=== PATIENT | female | born 1970 | race Caucasian/White ===

== ENCOUNTER 2016-09-26 13:10 | Inpatient (IN) | payer OTHER ==
--- NOTE | 2016-09-26 13:24 | PDOC ---
History of Present Illness - General Chief Complaint: Pain, Acute Stated Complaint: M.S./ KIDNEY PAIN (PCP SENT) Time Seen by Provider: 09/26/16 13:23 - History of Present Illness Initial Comments: 09/26/16 14:42 Patient is a [age]-year-old female with past medical history of MS, neurogenic bladder (self catheterizes) who presents to the emergency department today complaining of fevers, chills and worsening right flank pain. Patient was diagnosed with a urinary tract infection 6 days ago where Klebsiella was isolated. It was pansensitive and the patient was started on Cipro. she has taken 6 days worth of Cipro. Her pain has gotten increasingly worse even with antibiotics. She presents today for further evaluation and potential IV antibiotics as per Dr. Tammy Iglesias. Patient admits to fevers, chills, abdominal pain, pressure in her bladder, fatigue, and MS flare with numbness and tingling to her hands and feet. Past History - Travel Traveled outside of the country in the last 30 days: No Close contact w/someone who was outside of country & ill: No - Past Medical History Allergies/Adverse Reactions: Allergies Allergy/AdvReac Type Severity Reaction Status Date / Time No Known Allergies Allergy Verified 09/26/16 13:16 Home Medications: Ambulatory Orders Bupropion HCl [Wellbutrin Xl -] 300 mg PO DAILY #0 tab 07/28/13 Ropinirole HCl [Requip -] 1 mg PO HS #0 tablet 07/28/13 Sertraline HCl [Zoloft -] 100 mg PO DAILY #0 tablet 07/28/13 Zolpidem Tartrate [Ambien] 10 mg PO HS #0 tablet 07/28/13 Alprazolam [Xanax] 0.25 mg PO BID 09/26/16 Atorvastatin Ca [Lipitor] 40 mg PO HS 09/26/16 Baclofen 20 mg PO DAILY 09/26/16 Fingolimod HCl [Gilenya] 0.5 mg PO DAILY 09/26/16 Gabapentin [Neurontin -] 600 mg PO HS 09/26/16 Ibuprofen [Motrin -] 800 mg PO DAILY 09/26/16 Oxycodone HCl/Acetaminophen [Percocet 10-325 mg Tablet] 1 each PO Q4H 09/26/16 Zolpidem Tartrate [Ambien] 10 mg PO HS 09/26/16 GI Disorders: Yes (NEUROGENIC BLADDER. STRAIGHT CATHS.) Hypercholesterolemia: Yes Other medical history: MULTIPLE SCLEROSIS - Psycho/Social/Smoking Cessation Hx Anxiety: No Suicidal Ideation: No Smoking History: Current some day smoker Number of Cigarettes Smoked Daily: 2 Information on smoking cessation initiated: No 'Breaking Loose' booklet given: 03/20/13 Hx Alcohol Use: Yes (SOCIAL) Drug/Substance Use Hx: No Substance Use Type: None Hx Substance Use Treatment: No Review of Systems - Review of Systems Able to Perform ROS?: Yes Is the patient limited Slovenian proficient: No Constitutional: Yes: Chills, Fever, Malaise, Weakness Respiratory: No: Cough, Shortness of Breath Cardiac (ROS): No: Chest Pain, Lightheadedness, Chest Tightness ABD/GI: Yes: Nausea, Abdominal cramping. No: Constipated, Diarrhea, Vomiting : Yes: Burning, Dysuria, Frequency, Other (pressure over bladder, R back pain) Integumentary: No: Bruising, Erythema, Rash Neurological: No: Headache, Numbness, Weakness All Other Systems: Reviewed and Negative *Physical Exam - Vital Signs Last Vital Signs Temp Pulse Resp BP Pulse Ox 98.8 F 91 H 20 146/88 99 09/26/16 13:12 09/26/16 13:12 09/26/16 13:12 09/26/16 13:12 09/26/16 13:12 - Physical Exam General Appearance: Yes: Nourished, Appropriately Dressed, Mild Distress ( figiting in bed. breathing easily, AAOX3) Respiratory/Chest: positive: Lungs Clear, Normal Breath Sounds. negative: Respiratory Distress, Accessory Muscle Use, Rales, Rhonchi, Wheezing Cardiovascular: positive: Regular Rhythm, Regular Rate, S1, S2 (present). negative: Murmur Gastrointestinal/Abdominal: positive: Normal Bowel Sounds, Tender (TTP RLQ radiates to R flank/back, suprapubic tenderness) Musculoskeletal: positive: CVA Tenderness, CVA Tenderness (R). negative: CVA Tenderness (L) Integumentary: positive: Normal Color, Dry, Warm. negative: Rash Neurologic: positive: soapstoner II-XII NML intact, Fully Oriented, Alert, Normal Mood/ Affect, Normal Response, Motor Strength 5/5, Numbness (B/L hands and feet. decreased sensation) ED Treatment Course - LABORATORY CBC & Chemistry Diagram: 09/26/16 14:10 09/26/16 14:10 Medical Decision Making - Medical Decision Making 09/26/16 14:38 Patient is 46-year-old female with past medical history of MS, neurogenic bladder (self catheterizes) who presents to the emergency department today complaining of fevers, chills and worsening right flank pain after previous UTI diagnosis 6 days ago. Patient has severe tenderness of her right flank and positive CVA tenderness. Patient states that this is usual for her MS flares. Spoke to Dr. Flynn who is on-call for Dr. Tammy Iglesias. Recommends kidney and bladder ultrasound as well as standard septic workup. States that she might need to be admitted for IV antibiotics. We'll do septic workup at this time. 1. CBC, CMP, UA, UC, lactic acid blood cultures 2. Zofran, fluids, and morphine for symptom management. 3. kidney and bladder ultrasound to rule out hydronephrosis 4. reevaluate 09/26/16 15:00 Patient states her pain was not better with 2 IV morphine. Will give 4 of IV morphine now as well as IV Tylenol. Re-evaluate 09/26/16 15:49 CBC is within normal limits, white count of 6. Urine is clear with no evidence of nitrates or leukocyte esterase. This is most likely due to her Cipro use. BUN /creatinine and creatinine are slightly elevated Renal ultrasound: The right kidney measures 10 cm in sagittal length with minimal prominence of the renal pelvis visualized portion of the liver and gallbladder appear unremarkable Left kidney measures 9.7 cm in sagittal length with mild hydronephrosis left kidney appears otherwise unremarkable Impression: Mild left renal hydronephrosis and minimal fullness of the right renal pelvis Will order Spiral CT to r/o kidney stone. 09/26/16 17:31 CAT scans shows no evidence of kidney stones. Patient is most likely having intractable pain due to a possible pyelonephritis. Lab work is unremarkable given she's been on Cipro for [address] Metcalf who agrees to the patient in observation for intractable pain as well as possible IV antibiotics. Dr. Purcell will follow. *DC/Admit/Observation/Transfer Diagnosis at time of Disposition: Intractable pain, Multiple sclerosis UTI (urinary tract infection) Qualifiers: Urinary tract infection type: catheter-associated UTI Indwelling urinary catheter type: unspecified Encounter type: initial encounter Qualified Code(s): T83.511A - Infection and inflammatory reaction due to indwelling urethral catheter, initial encounter - Discharge Dispostion Condition at time of disposition: Guarded Admit: Yes
[2016-09-26] MEDS ORDERED: morphine CARPU-JECT 2 MG/1 ML DISP.SYRIN ONE ×2 (13:55→17:42)
[2016-09-26] MEDS ORDERED: morphine CARPU-JECT 2 MG/1 ML DISP.SYRIN IVPUSH ONE ×2 (14:01→17:28)
[2016-09-26] MEDS ORDERED: SODIUM CHLORIDE 1,000 ML IV STA (14:02)
[2016-09-26 14:12] LABS: URINE APPEARANCE CLEAR; URINE BILIRUBIN NEGATIVE (NEGATIVE); URINE BLOOD NEGATIVE (NEGATIVE); URINE COLOR YELLOW; URINE GLUCOSE (UA) NEGATIVE (NEGATIVE); URINE KETONE TRACE (NEGATIVE); URINE LEUK ESTERASE NEGATIVE (NEGATIVE); URINE NITRITE NEGATIVE (NEGATIVE); URINE PROTEIN NEGATIVE (NEGATIVE); URINE UROBILINOGEN NEGATIVE E.U./dl (0.2-1.0)
[2016-09-26] MEDS ORDERED: ACETAMINOPHEN 1000 MG/100 ML VIAL (NON FORMULARY) IVPB ONE (14:15)
[2016-09-26] MEDS ORDERED: ACETAMINOPHEN INJECTION 100 ML IVPB ONE (14:18)
[2016-09-26] MEDS ORDERED: ONDANSETRON 4 MG/2 ML VIAL IVPUSH ONE (14:22)
[2016-09-26] MEDS ORDERED: ONDANSETRON 4 MG/2 ML VIAL ONE (14:22)
[2016-09-26 14:34] LABS: BASOPHIL 0.2 % (0-2.0); EOSINOPHIL 0.7 % (0-4.5); MCHC 34.3 g/dl (32.0-36.0); MEAN CELL VOLUME 84.7 fl (80-96); MEAN PLT VOLUME 8.8 fl (7.5-11.1); NEUTROPHILS 74.1 % (42.8-82.8); PLATELET COUNT 255 K/MM3 (134-434); RDW 14.1 % (11.6-15.6); WHITE BLOOD COUNT 6.4 K/mm3 (4.0-10.0)
--- NOTE | 2016-09-26 14:35 | PDOC ---
Attending Attestation - Resident Resident Name: Charity Prado - ED Attending Attestation I have performed the following: I have examined & evaluated the patient, The case was reviewed & discussed with the resident, I agree w/resident's findings & plan - HPI HPI: 09/26/16 17:25 46y F hx of MS, neurgenic bladder and is supposed to self catherize, with recen diagnosis of UTI by dr. Tammy Mckeon 6 days ago with complaint of dysuria, states she is not consistent with self catherizing herself. pt also endorsed intermittent tingling of her hands/feet for the past several days w/o weakness, no vision changes. pt endorses some chills and nausea and intermittnte R flank pain, deine sany fevers, vomiting. pt was on cipro for past 6 days, and was told to come to the ED if symptoms were worsening. Pts exam shows mild RLQ tenderness, vitals normal. labs reviewed Cr at 1.2 UA clean, however pt is on cipro, will send u culture CT shows no acute pahtology tingling of extremities = ?MS flare in setting of UTI? consider admission for further management and iv abx - Physicial Exam PE: 09/27/16 09:40 see above - Medical Decision Making 09/27/16 09:40 see above
[2016-09-26] MEDS ORDERED: morphine CARPU-JECT 4 MG/1 ML DISP.SYRIN IVPUSH ONE (14:37)
[2016-09-26 14:44] LABS: ALK PHOS 73 U/L (45-117); ANION GAP 7 (8-16); BILIRUBIN,TOTAL 0.4 mg/dL (0.2-1.0); CALCIUM 9.4 mg/dL (8.5-10.1); CO2 27 mmol/L (21-32); CREATININE 1.2 mg/dL (0.55-1.02); GLUCOSE,RANDOM 93 mg/dL (74-106); SGOT/AST 23 U/L (15-37); SGPT/ALT 30 U/L (12-78); TOT PROT 6.8 g/dl (6.4-8.2)
[2016-09-26] MEDS ORDERED: morphine CARPU-JECT 4 MG/1 ML DISP.SYRIN ONE (14:44)
[2016-09-26 15:35] LABS: INR 0.88 (0.82-1.09); PROTHROMBIN TIME (PATIENT) 9.7 SEC (9.98-11.88)
[2016-09-26 15:38] LABS: ACTIVATED PTT 30.6 SECONDS (26.9-34.4)
[2016-09-26] MEDS ORDERED: morphine CARPU-JECT 2 MG/1 ML DISP.SYRIN IVPB PRN (20:54)
[2016-09-26] MEDS ORDERED: LEVOFLOXACIN 500 MG IVPB 100 ML IVPB ONE (21:00)
[2016-09-26] MEDS: morphine CARPU-JECT 2 MG/1 ML DISP.SYRIN IVPUSH PRN (21:18)
[2016-09-26 23:49] VITALS: BMI 25.3
[2016-09-26] MEDS ORDERED: IBUPROFEN 400 MG TABLET (FP) PO PRN (23:59)
[2016-09-27] MEDS: oxyCODONE HCL 5 MG TABLET PO PRN ×4 (00:49→18:42)
[2016-09-27] MEDS: ACETAMINOPHEN 325 MG TABLET (FP) PO PRN ×4 (00:50→18:43)
[2016-09-27] MEDS: GABAPENTIN 300 MG CAPSULE (FP) PO SCH ×2 (00:51→22:24)
[2016-09-27] MEDS: BACLOFEN 10 MG TABLET (FP) PO SCH ×2 (00:52→22:24)
[2016-09-27] MEDS: ATORVASTATIN CA 40 MG TABLET (FP) PO SCH ×2 (00:52→22:24)
[2016-09-27] MEDS: ALPRAZolam 0.25 MG TABLET PO SCH ×3 (01:11→22:24)
[2016-09-27] MEDS: rOPINIRole HCL 1 MG TABLET (FP) PO SCH ×2 (01:32→22:26)
[2016-09-27] MEDS: PHENAZOPYRIDINE HCL 100 MG TABLET (FP) PO SCH ×3 (01:33→22:26)
[2016-09-27] MEDS: ZOLPIDEM TARTRATE 5 MG TABLET PO PRN ×2 (01:38→22:36)
[2016-09-27 07:24] LABS: BASOPHIL 0.5 % (0-2.0); EOSINOPHIL 1.6 % (0-4.5); MCH 29.2 pg (25.7-33.7); MCHC 34.3 g/dl (32.0-36.0); MEAN CELL VOLUME 85.2 fl (80-96); MEAN PLT VOLUME 8.7 fl (7.5-11.1); NEUTROPHILS 68.9 % (42.8-82.8); PLATELET COUNT 205 K/MM3 (134-434); WHITE BLOOD COUNT 5.7 K/mm3 (4.0-10.0)
[2016-09-27 07:55] LABS: ALBUMIN 3.2 g/dl (3.4-5.0); ANION GAP 7 (8-16); BILIRUBIN,TOTAL 0.3 mg/dL (0.2-1.0); CALCIUM 8.9 mg/dL (8.5-10.1); CO2 28 mmol/L (21-32); CREATININE 0.8 mg/dL (0.55-1.02); GLUCOSE,RANDOM 82 mg/dL (74-106); SGOT/AST 18 U/L (15-37); SGPT/ALT 23 U/L (12-78); TOT PROT 5.7 g/dl (6.4-8.2)
[2016-09-27 07:57] LABS: ALK PHOS 56 U/L (45-117)
[2016-09-27] MEDS ORDERED: PT OWN MED DRAWER 7, Y5N ONE ×2 (09:28→18:53)
[2016-09-27] MEDS: SERTRALINE HCL 50 MG TABLET (FP) PO SCH (09:37)
[2016-09-27 09:51] LABS: ERYTHROCYTE SEDIMENTATION RATE 16 mm/hr (0-20)
[2016-09-27] MEDS ORDERED: LEVOFLOXACIN 500 MG IVPB 100 ML IVPB SCH (10:00)
[2016-09-27] MEDS: morphine CARPU-JECT 2 MG/1 ML DISP.SYRIN IVPUSH PRN ×2 (10:36→20:46)
--- NOTE | 2016-09-27 11:37 | HP ---
Admitting History and Physical - Primary Care Physician PCP: Tammy Contreras - Admission Chief Complaint: abdominal pain, UTI, flank pain History of Present Illness: ER history - History of Present Illness Initial Comments: 09/26/16 14:42 Patient is a [age]-year-old female with past medical history of MS, neurogenic bladder (self catheterizes) who presents to the emergency department today complaining of fevers, chills and worsening right flank pain. Patient was diagnosed with a urinary tract infection 6 days ago where Klebsiella was isolated. It was pansensitive and the patient was started on Cipro. she has taken 6 days worth of Cipro. Her pain has gotten increasingly worse even with antibiotics. She presents today for further evaluation and potential IV antibiotics as per Dr. Tmamy Iglesias. Patient admits to fevers, chills, abdominal pain, pressure in her bladder, fatigue, and MS flare with numbness and tingling to her hands and feet patient examined by me on the floors. spoke with her driver/PMDDr. Tammy Purcellpatient failed outpatient oral antibiotic therapy for UTI. She is here for further evaluation and intravenous antibiotics. Patient complains of pelvic pain and also back pain. She self catheterizes but not as often.she has overflow incontinence. Has noted blood clots this morning. History Source: Patient Limitations to Obtaining History: No Limitations - Past Medical History SMALL BUSINESS DIRECTOR: Yes: Multiple Sclerosis, Other (MS. NEUROGENIC BLADDER--SELF CATHERIZES) - Smoking History Smoking history: Current some day smoker Aproximately how many cigarettes per day: 2 - Alcohol/Substance Use Hx Alcohol Use: Yes (SOCIAL) Home Medications - Allergies Allergies/Adverse Reactions: Allergies Allergy/AdvReac Type Severity Reaction Status Date / Time No Known Allergies Allergy Verified 09/26/16 13:16 - Home Medications Home Medications: Ambulatory Orders Bupropion HCl [Wellbutrin Xl -] 300 mg PO DAILY #0 tab 07/28/13 Ropinirole HCl [Requip -] 1 mg PO HS #0 tablet 07/28/13 Sertraline HCl [Zoloft -] 100 mg PO DAILY #0 tablet 07/28/13 Zolpidem Tartrate [Ambien] 10 mg PO HS #0 tablet 07/28/13 Alprazolam [Xanax] 0.25 mg PO BID 09/26/16 Atorvastatin Ca [Lipitor] 40 mg PO HS 09/26/16 Baclofen 20 mg PO DAILY 09/26/16 Fingolimod HCl [Gilenya] 0.5 mg PO DAILY 09/26/16 Gabapentin [Neurontin -] 600 mg PO HS 09/26/16 Ibuprofen [Motrin -] 800 mg PO DAILY 09/26/16 Oxycodone HCl/Acetaminophen [Percocet 10-325 mg Tablet] 1 each PO Q4H 09/26/16 Zolpidem Tartrate [Ambien] 10 mg PO HS 09/26/16 Review of Systems - Review of Systems Constitutional: reports: Chills, Fever. denies: Lethargy, Loss of Appetite, Malaise, Night Sweats, Weakness Genitourinary: reports: Burning, Dysuria, Flank Pain, Hematuria, Pain. denies: Frequency Physical Examination Vital Signs: Vital Signs Temperature 98.0 F 09/27/16 08:00 Pulse Rate 75 09/27/16 08:00 Respiratory Rate 20 09/27/16 08:00 Blood Pressure 112/64 09/27/16 08:00 O2 Sat by Pulse Oximetry (%) 100 09/26/16 20:15 Constitutional: Yes: No Distress, Calm Cardiovascular: Yes: Regular Rate and Rhythm Respiratory: Yes: CTA Bilaterally Gastrointestinal: Yes: Normal Bowel Sounds, Soft, Tenderness (suprapubic tenderness). No: Distention Renal/: Yes: CVA Tenderness - Left, CVA Tenderness - Right Edema: No Neurological: Yes: Alert, Oriented Psychiatric: Yes: Alert, Oriented Labs: CBC, BMP 09/27/16 06:20 09/27/16 06:20 Imaging - Results Cat Scan: Report Reviewed Ultrasound: Report Reviewed Problem List - Problems (1) Multiple sclerosis Code(s): G35 - MULTIPLE SCLEROSIS (2) UTI (urinary tract infection) Code(s): N39.0 - URINARY TRACT INFECTION, SITE NOT SPECIFIED Qualifiers: Urinary tract infection type: catheter-associated UTI Indwelling urinary catheter type: unspecified Encounter type: initial encounter Qualified Code(s): T83.511A - Infection and inflammatory reaction due to indwelling urethral catheter, initial encounter; N39.0 - Urinary tract infection , site not specified (3) Hydronephrosis Code(s): N13.30 - UNSPECIFIED HYDRONEPHROSIS Qualifiers: Hydronephrosis type: other Qualified Code(s): N13.39 - Other hydronephrosis Assessment/Plan plan As patient was already on ciprofloxacin and failed outpatient therapy, I will discontinue IV Levaquin and start her on ceftriaxone Infectious disease consult Urine cultures are pending Pain control, increase dose of oxycodone Advised the patient to catheterize herself more often at least every 6 hours IV fluids Renal ultrasound and CAT scan of the abdomen and pelvis noted and discussed with the patient DVT prophylaxisSCDs Time spent40 minutes
--- NOTE | 2016-09-27 12:16 | CONSULT ---
Consult Consult Specialty:: Nephrology ( [facility]/ [facility]) Reason for Consultation:: Patient admitted with severe abd pain, flank pain, fever and positive urine culture with K. pneumoniae - History of Present Illness Chief Complaint: The patient is a 46 y/o WF, with h/o Multiple sclerosis, with voiding difficulties, and some degree of dysphagia. The patient had veen advised self catheterization for the past several years, but, her compliance with this had not been the best. She also has h/o Essential tremor, and on Inderal. The patient has been having fever, and lower abdominal pains for the past week, and a urine C/S grew K. pneumoniae. The pain is getting worse. pain located in the suprapubic areas and the flanks. This morning when she was catheterizing, she saw clots in the urine. The renal sonogram shows mild hydronephrosis, without any focal lesions. - History Source History Provided By: Patient, Medical Record Limitations to Obtaining History: No Limitations - Past Medical History LOAF COUNTER: Yes: Other (Multiple sclerosis, NEUROGENIC BLADDER--SELF CATHERIZES) Cardio/Vascular: No: HTN Pulmonary: No: Asthma Renal/: Yes: Neurogenic Bladder Psych: Yes: Anxiety - Alcohol/Substance Use Hx Alcohol Use: Yes (SOCIAL) - Smoking History Smoking history: Current some day smoker Aproximately how many cigarettes per day: 2 Home Medications - Allergies Allergies/Adverse Reactions: Allergies Allergy/AdvReac Type Severity Reaction Status Date / Time No Known Allergies Allergy Verified 09/26/16 13:16 - Home Medications Home Medications: Ambulatory Orders Bupropion HCl [Wellbutrin Xl -] 300 mg PO DAILY #0 tab 07/28/13 Ropinirole HCl [Requip -] 1 mg PO HS #0 tablet 07/28/13 Sertraline HCl [Zoloft -] 100 mg PO DAILY #0 tablet 07/28/13 Zolpidem Tartrate [Ambien] 10 mg PO HS #0 tablet 07/28/13 Alprazolam [Xanax] 0.25 mg PO BID 09/26/16 Atorvastatin Ca [Lipitor] 40 mg PO HS 09/26/16 Baclofen 20 mg PO DAILY 09/26/16 Fingolimod HCl [Gilenya] 0.5 mg PO DAILY 09/26/16 Gabapentin [Neurontin -] 600 mg PO HS 09/26/16 Ibuprofen [Motrin -] 800 mg PO DAILY 09/26/16 Oxycodone HCl/Acetaminophen [Percocet 10-325 mg Tablet] 1 each PO Q4H 09/26/16 Zolpidem Tartrate [Ambien] 10 mg PO HS 09/26/16 Review of Systems - Review of Systems Constitutional: reports: Fever, Loss of Appetite HENT: reports: Difficult Swallowing Cardiovascular: denies: Chest Pain, Shortness of Breath Gastrointestinal: reports: Abdominal Pain, Dysphagia. denies: Constipation, Diarrhea Genitourinary: reports: Burning, Dysuria, Flank Pain, Hematuria Musculoskeletal: reports: Back Pain, Extremity Pain, Muscle Weakness Neurological: reports: Headache Physical Exam Vital Signs: Vital Signs Temperature 98.0 F 09/27/16 08:00 Pulse Rate 75 09/27/16 08:00 Respiratory Rate 20 09/27/16 08:00 Blood Pressure 112/64 09/27/16 08:00 O2 Sat by Pulse Oximetry (%) 100 09/26/16 20:15 Constitutional: Yes: Anxious Eyes: Yes: Conjunctiva Clear HENT: Yes: Atraumatic Neck: Yes: Trachea Midline Cardiovascular: Yes: Regular Rate and Rhythm, S1, S2 Respiratory: Yes: CTA Bilaterally Gastrointestinal: Yes: Normal Bowel Sounds, Tenderness Musculoskeletal: Yes: Joint Stiffness, Muscle Pain, Muscle Weakness Extremities: No: Calf Tenderness Neurological: Yes: Alert, Oriented, Tingling, Weakness (Patient has Multiple Sclerosis.) Psychiatric: Yes: Alert, Oriented Labs: CBC, BMP 09/27/16 06:20 09/27/16 06:20 Problem List - Problems (1) Intractable pain Code(s): R52 - PAIN, UNSPECIFIED (2) Multiple sclerosis Code(s): G35 - MULTIPLE SCLEROSIS (3) UTI (urinary tract infection) Code(s): N39.0 - URINARY TRACT INFECTION, SITE NOT SPECIFIED Qualifiers: Urinary tract infection type: catheter-associated UTI Indwelling urinary catheter type: unspecified Encounter type: initial encounter Qualified Code(s): T83.511A - Infection and inflammatory reaction due to indwelling urethral catheter, initial encounter; N39.0 - Urinary tract infection , site not specified (4) Essential tremor Code(s): G25.0 - ESSENTIAL TREMOR Assessment/Plan The patient is a 46 y/o female with h/o MS, Neurogenic bladder, Admitted with Acute UTI, with Klebsiella pneumoniae, vázquez sensitive. Was on 6 days of Cipro, with the symptoms worsening. Renal sonogram shows mild Hydronephrosis, possibly related to Neurogenic bladder. Clot per urethrum, ? Traumatic. PLAN: Will switch to Ceftriaxone. IV fluids. ID evaluation. [employer]. Thank you. Tammy Contreras MD
[2016-09-27] MEDS ORDERED: CEFTRIAXONE 50 ML IVPB SCH (12:30)
[2016-09-27] MEDS: D5-1/2NS+40 MEQ KCL - 1,000 ML IV SCH (13:00)
[2016-09-27] MEDS ORDERED: CEFTRIAXONE 50 ML IVPB ONE (15:39)
--- NOTE | 2016-09-27 15:43 | PN ---
Progress Note (short form) - Note Progress Note: ID Consult dictated UTI/Possible sepsis secondary to UTI Pyelonephritis Exacerbation MS Blood c/s, repeat urine c/s pending Empiric ceftriaxone 2gm IVPB q24h
[2016-09-27] MEDS: [UNRECOGNIZED DRUG - REMARK] PO SCH (18:42)
[2016-09-28] MEDS: oxyCODONE HCL 5 MG TABLET PO PRN ×3 (02:12→21:38)
[2016-09-28] MEDS: ACETAMINOPHEN 325 MG TABLET (FP) PO PRN ×3 (02:13→21:38)
[2016-09-28] MEDS: morphine CARPU-JECT 2 MG/1 ML DISP.SYRIN IVPUSH PRN ×2 (07:15→16:44)
[2016-09-28] MEDS ORDERED: PT OWN MED DRAWER 7, Y5N ONE ×3 (09:47→21:33)
[2016-09-28] MEDS: [UNRECOGNIZED DRUG - REMARK] PO SCH (09:52)
[2016-09-28] MEDS: PHENAZOPYRIDINE HCL 100 MG TABLET (FP) PO SCH ×2 (09:52→21:41)
[2016-09-28] MEDS: SERTRALINE HCL 50 MG TABLET (FP) PO SCH (09:53)
[2016-09-28] MEDS: CEFTRIAXONE 100 ML IVPB SCH (09:53)
[2016-09-28] MEDS: ALPRAZolam 0.25 MG TABLET PO SCH ×2 (09:53→21:40)
[2016-09-28] MEDS ORDERED: ENOXAPARIN NA (PORCINE) 40 MG/0.4 ML DISP.SYRIN SQ SCH (10:00)
--- NOTE | 2016-09-28 11:32 | PN ---
Progress Note (short form) - Note Progress Note: pt seen/ examined/ chart reviewed pt feels little better pain + slight improvement remains afebrile Vital Signs Temp 99 F 09/28/16 08:00 Pulse 77 09/28/16 08:00 Resp 18 09/28/16 08:00 BP 112/70 09/28/16 08:00 Pulse Ox 100 09/27/16 21:00 Intake & Output 09/27/16 09/27/16 09/28/16 11:59 23:59 11:59 Intake Total 300 2025 550 Output Total 500 Balance 300 1525 550 Intake: IV 750 D5-1/2Ns+40 Meq KCl - 1, 750 000 ml @ 75 mls/hr IV ASDIR ANU Rx#:[id number] IVPB 100 100 Oral 200 1175 550 Output: Urine 500 Straight Cath 500 Other: Voiding Method Self-Catheterization Self-Catheterization Toilet # Unmeasured Voids Straight Cath 1 Void 1 1 1 Bowel Movement No Yes # Bowel Movements 1 Active Medications Acetaminophen (Tylenol -) 325 mg PO Q4H PRN PRN Reason: PAIN Stop: 09/30/16 00:08 Last Admin: 09/28/16 11:18 Dose: 325 mg Alprazolam (Xanax -) 0.25 mg PO BID [facility] Last Admin: 09/28/16 09:53 Dose: 0.25 mg Atorvastatin Calcium (Lipitor -) 40 mg PO HS [facility] Last Admin: 09/27/16 22:24 Dose: 40 mg Baclofen (Lioresal -) 20 mg PO HS [facility] Last Admin: 09/27/16 22:24 Dose: 20 mg Bupropion HCl (Wellbutrin Xl -) 300 mg PO DAILY [facility] Last Admin: 09/28/16 09:53 Dose: 300 mg Gabapentin (Neurontin -) 600 mg PO [facility] Last Admin: 09/27/16 22:24 Dose: 600 mg Dextrose/Sodium Chloride (D5-1/2ns+40 Meq Kcl -) 1,000 mls @ 75 mls/hr IV ASDIR ANU Last Admin: 09/27/16 13:00 Dose: 75 mls/hr Ceftriaxone Sodium (Rocephin 2gm Ivpb (Pre-Docked)) 100 mls @ 200 mls/hr IVPB DAILY [facility] Last Admin: 09/28/16 09:53 Dose: 200 mls/hr Morphine Sulfate (Morphine Injection -) 2 mg IVPUSH Q6H PRN PRN Reason: PAIN Last Admin: 09/28/16 07:15 Dose: 2 mg Non-Form(Pt's Own (Med-Gilenya 0.5mg)) 1 each PO DAILY [facility] Last Admin: 09/28/16 09:52 Dose: 1 each Oxycodone HCl (Roxicodone -) 7.5 mg PO Q4H PRN PRN Reason: PAIN Last Admin: 09/28/16 11:16 Dose: 7.5 mg Phenazopyridine HCl (Pyridium -) 100 mg PO BID [facility] Last Admin: 09/28/16 09:52 Dose: 100 mg Ropinirole HCl (Requip -) 1 mg PO HS [facility] Last Admin: 09/27/16 22:26 Dose: 1 mg Sertraline HCl (Zoloft -) 100 mg PO DAILY [facility] Last Admin: 09/28/16 09:53 Dose: 100 mg Zolpidem Tartrate (Ambien -) 10 mg PO HS PRN Last Admin: 09/27/16 22:36 Dose: 10 mg CBC, BMP 09/27/16 06:20 09/27/16 06:20 Microbiology 09/26/16 14:10 Blood Culture - Preliminary Blood - Peripheral Venous NO GROWTH OBTAINED AFTER 24 HOURS, INCUBATION TO CONTINUE FOR 4 DAYS. 09/26/16 14:10 Blood Culture - Preliminary Blood - Peripheral Venous NO GROWTH OBTAINED AFTER 24 HOURS, INCUBATION TO CONTINUE FOR 4 DAYS. u/c - pending Physical Examination Constitutional: Yes: No Distress, Calm Cardiovascular: Yes: Regular Rate and Rhythm Respiratory: Yes: CTA Bilaterally Gastrointestinal: Yes: soft Renal/: Yes: decreased left cva tenderness Edema: No Neurological: Yes: Alert, Oriented Psychiatric: Yes: Alert, Oriented Imaging - Results Cat Scan: Report Reviewed Ultrasound: Report Reviewed Problem List - Problems (1) Multiple sclerosis Code(s): G35 - MULTIPLE SCLEROSIS (2) UTI (urinary tract infection) Code(s): N39.0 - URINARY TRACT INFECTION, SITE NOT SPECIFIED Qualifiers: Urinary tract infection type: catheter-associated UTI Indwelling urinary catheter type: unspecified Encounter type: initial encounter Qualified Code(s): T83.511A - Infection and inflammatory reaction due to indwelling urethral catheter, initial encounter; N39.0 - Urinary tract infection , site not specified (3) Hydronephrosis Code(s): N13.30 - UNSPECIFIED HYDRONEPHROSIS Qualifiers: Hydronephrosis type: other Qualified Code(s): N13.39 - Other hydronephrosis Assessment/Plan slight improvement continue abx daily oob - chair meds reviewed discussed with also will follow
[2016-09-28] MEDS: LACTOBACILLUS ACIDOPHILUS 1 EACH TAB (FP) PO SCH (12:05)
--- NOTE | 2016-09-28 12:05 | PN ---
Progress Note, Physician History of Present Illness: Awake, alert No acute distress C/O R flank pain, supapubic pressure, dysuria No fever/ chills Afebrile - Current Medication List Current Medications: Active Medications Acetaminophen (Tylenol -) 325 mg PO Q4H PRN PRN Reason: PAIN Stop: 09/30/16 00:08 Last Admin: 09/28/16 11:18 Dose: 325 mg Alprazolam (Xanax -) 0.25 mg PO BID [facility] Last Admin: 09/28/16 09:53 Dose: 0.25 mg Atorvastatin Calcium (Lipitor -) 40 mg PO HS [facility] Last Admin: 09/27/16 22:24 Dose: 40 mg Baclofen (Lioresal -) 20 mg PO HS [facility] Last Admin: 09/27/16 22:24 Dose: 20 mg Bupropion HCl (Wellbutrin Xl -) 300 mg PO DAILY [facility] Last Admin: 09/28/16 09:53 Dose: 300 mg Enoxaparin Sodium (Lovenox -) 40 mg SQ DAILY [facility] Gabapentin (Neurontin -) 600 mg PO HS [facility] Last Admin: 09/27/16 22:24 Dose: 600 mg Dextrose/Sodium Chloride (D5-1/2ns+40 Meq Kcl -) 1,000 mls @ 75 mls/hr IV ASDIR [facility] Last Admin: 09/27/16 13:00 Dose: 75 mls/hr Ceftriaxone Sodium (Rocephin 2gm Ivpb (Pre-Docked)) 100 mls @ 200 mls/hr IVPB DAILY [facility] Last Admin: 09/28/16 09:53 Dose: 200 mls/hr Lactobacillus Acidophilus (Bacid -) 1 tab PO DAILY [facility] Morphine Sulfate (Morphine Injection -) 2 mg IVPUSH Q6H PRN PRN Reason: PAIN Last Admin: 09/28/16 07:15 Dose: 2 mg Non-Form(Pt's Own (Med-Gilenya 0.5mg)) 1 each PO DAILY [facility] Last Admin: 09/28/16 09:52 Dose: 1 each Oxycodone HCl (Roxicodone -) 7.5 mg PO Q4H PRN PRN Reason: PAIN Last Admin: 09/28/16 11:16 Dose: 7.5 mg Phenazopyridine HCl (Pyridium -) 100 mg PO BID [facility] Last Admin: 09/28/16 09:52 Dose: 100 mg Ropinirole HCl (Requip -) 1 mg PO HS [facility] Last Admin: 09/27/16 22:26 Dose: 1 mg Sertraline HCl (Zoloft -) 100 mg PO DAILY [facility] Last Admin: 09/28/16 09:53 Dose: 100 mg Zolpidem Tartrate (Ambien -) 10 mg PO HS PRN Last Admin: 09/27/16 22:36 Dose: 10 mg - Objective Vital Signs: Vital Signs Temperature 99 F 09/28/16 08:00 Pulse Rate 77 09/28/16 08:00 Respiratory Rate 18 09/28/16 08:00 Blood Pressure 112/70 09/28/16 08:00 O2 Sat by Pulse Oximetry (%) 100 09/27/16 21:00 Constitutional: Yes: No Distress Eyes: Yes: Conjunctiva Clear Cardiovascular: Yes: Regular Rate and Rhythm, S1, S2 Respiratory: Yes: CTA Bilaterally Gastrointestinal: Yes: Normal Bowel Sounds, Soft, Tenderness, Other (+ suprapubic tenderness) Genitourinary: Yes: CVA Tenderness - Right Edema: No Labs: INR, PTT INR 0.88 (0.82-1.09) 09/26/16 14:10 Assessment/Plan Pyelonephritis Recurrent UTI Neurogenic bladder MS Await c/s Continue ceftriaxone 2gm IVPB q24h
[2016-09-28] MEDS: ENOXAPARIN NA (PORCINE) 40 MG/0.4 ML DISP.SYRIN SQ SCH (13:00)
--- NOTE | 2016-09-28 15:39 | PN ---
Progress Note, Physician Chief Complaint: The patient seen in bed. Afebrile. Still complaints of suprapubic pain and tenderness. and flank pain. She said that after catheterization, she keeps seeing blood. Will get U/A ID f/u appreciated. - Current Medication List Current Medications: Active Medications Acetaminophen (Tylenol -) 325 mg PO Q4H PRN PRN Reason: PAIN Stop: 09/30/16 00:08 Last Admin: 09/28/16 11:18 Dose: 325 mg Alprazolam (Xanax -) 0.25 mg PO BID [facility] Last Admin: 09/28/16 09:53 Dose: 0.25 mg Atorvastatin Calcium (Lipitor -) 40 mg PO HS [facility] Last Admin: 09/27/16 22:24 Dose: 40 mg Baclofen (Lioresal -) 20 mg PO HS [facility] Last Admin: 09/27/16 22:24 Dose: 20 mg Bupropion HCl (Wellbutrin Xl -) 300 mg PO DAILY [facility] Last Admin: 09/28/16 09:53 Dose: 300 mg Enoxaparin Sodium (Lovenox -) 40 mg SQ DAILY [facility] Gabapentin (Neurontin -) 600 mg PO HS [facility] Last Admin: 09/27/16 22:24 Dose: 600 mg Dextrose/Sodium Chloride (D5-1/2ns+40 Meq Kcl -) 1,000 mls @ 75 mls/hr IV ASDIR [facility] Last Admin: 09/27/16 13:00 Dose: 75 mls/hr Ceftriaxone Sodium (Rocephin 2gm Ivpb (Pre-Docked)) 100 mls @ 200 mls/hr IVPB DAILY [facility] Last Admin: 09/28/16 09:53 Dose: 200 mls/hr Lactobacillus Acidophilus (Bacid -) 1 tab PO DAILY [facility] Last Admin: 09/28/16 12:05 Dose: 1 tab Morphine Sulfate (Morphine Injection -) 2 mg IVPUSH Q6H PRN PRN Reason: PAIN Last Admin: 09/28/16 07:15 Dose: 2 mg Non-Form(Pt's Own (Med-Gilenya 0.5mg)) 1 each PO DAILY [facility] Last Admin: 09/28/16 09:52 Dose: 1 each Oxycodone HCl (Roxicodone -) 7.5 mg PO Q4H PRN PRN Reason: PAIN Last Admin: 09/28/16 11:16 Dose: 7.5 mg Phenazopyridine HCl (Pyridium -) 100 mg PO BID [facility] Last Admin: 09/28/16 09:52 Dose: 100 mg Ropinirole HCl (Requip -) 1 mg PO HS [facility] Last Admin: 09/27/16 22:26 Dose: 1 mg Sertraline HCl (Zoloft -) 100 mg PO DAILY [facility] Last Admin: 09/28/16 09:53 Dose: 100 mg Zolpidem Tartrate (Ambien -) 10 mg PO HS PRN Last Admin: 09/27/16 22:36 Dose: 10 mg - Objective Vital Signs: Vital Signs Temperature 98.0 F 09/28/16 14:15 Pulse Rate 79 09/28/16 14:15 Respiratory Rate 18 09/28/16 14:15 Blood Pressure 98/67 09/28/16 14:15 O2 Sat by Pulse Oximetry (%) 100 09/27/16 21:00 Constitutional: Yes: Mild Distress Eyes: Yes: Conjunctiva Clear HENT: Yes: Atraumatic Neck: Yes: Supple Cardiovascular: Yes: Regular Rate and Rhythm, S1, S2 Respiratory: Yes: Regular, CTA Bilaterally, Diminished Gastrointestinal: Yes: Normal Bowel Sounds, Soft Genitourinary: Yes: CVA Tenderness - Left, CVA Tenderness - Right, Hematuria ( Reported b y the patient). No: Bladder Distention Edema: No Labs: INR, PTT INR 0.88 (0.82-1.09) 09/26/16 14:10 Problem List - Problems (1) Intractable pain Code(s): R52 - PAIN, UNSPECIFIED (2) Multiple sclerosis Code(s): G35 - MULTIPLE SCLEROSIS (3) UTI (urinary tract infection) Code(s): N39.0 - URINARY TRACT INFECTION, SITE NOT SPECIFIED Qualifiers: Urinary tract infection type: catheter-associated UTI Indwelling urinary catheter type: unspecified Encounter type: initial encounter Qualified Code(s): T83.511A - Infection and inflammatory reaction due to indwelling urethral catheter, initial encounter; N39.0 - Urinary tract infection , site not specified (4) Essential tremor Code(s): G25.0 - ESSENTIAL TREMOR Assessment/Plan The patient is a 46 y/o female with h/o MS, Neurogenic bladder, Admitted with Acute UTI, with Klebsiella pneumoniae, vázquez sensitive. Was on 6 days of Cipro, with the symptoms worsening. Renal sonogram shows mild Hydronephrosis, possibly related to Neurogenic bladder. Hematuria. ? Traumatic PLAN: Continue the IV fluids and Ceftriaxone. Urinalysis. Analgesics. Tammy Contreras MD
[2016-09-28] MEDS: D5-1/2NS+40 MEQ KCL - 1,000 ML IV SCH (15:54)
[2016-09-28 18:34] LABS: URINE APPEARANCE CLEAR; URINE BILIRUBIN NEGATIVE (NEGATIVE); URINE BLOOD 3+ (NEGATIVE); URINE COLOR AMBER; URINE GLUCOSE (UA) NEGATIVE (NEGATIVE); URINE KETONE TRACE (NEGATIVE); URINE LEUK ESTERASE NEGATIVE (NEGATIVE); URINE NITRITE POSITIVE (NEGATIVE); URINE PROTEIN NEGATIVE (NEGATIVE); URINE UROBILINOGEN 4.0 E.U/dl mg/dL (0.2-1.0)
[2016-09-28 18:40] LABS: URINE RBC 157 /hpf (0-3); URINE WBC 1 /hpf (3-5)
[2016-09-28] MEDS: GABAPENTIN 300 MG CAPSULE (FP) PO SCH (21:38)
[2016-09-28] MEDS: BACLOFEN 10 MG TABLET (FP) PO SCH (21:40)
[2016-09-28] MEDS: ATORVASTATIN CA 40 MG TABLET (FP) PO SCH (21:40)
[2016-09-28] MEDS: rOPINIRole HCL 1 MG TABLET (FP) PO SCH (21:41)
[2016-09-28] MEDS: ZOLPIDEM TARTRATE 5 MG TABLET PO PRN (21:44)
[2016-09-29] MEDS: morphine CARPU-JECT 2 MG/1 ML DISP.SYRIN IVPUSH PRN ×3 (01:38→18:34)
[2016-09-29] MEDS: oxyCODONE HCL 5 MG TABLET PO PRN ×3 (07:03→21:21)
[2016-09-29] MEDS: ACETAMINOPHEN 325 MG TABLET (FP) PO PRN ×3 (07:04→21:21)
--- NOTE | 2016-09-29 10:12 | PN ---
Progress Note (short form) - Note Progress Note: still with abdominal discomfort no fevers reports she does not self cath as she should- sometimes skips altogether and never 3 times aday- reports pain with self cath Vital Signs Period Temp Pulse Resp BP Sys/Marquez Pulse Ox Last 24 Hr 97.6 F-98.4 F 60-79 18-20 98-142/58-82 98 cor-rrr lungs clear abd soft, no distention ext no edema CBC, BMP 09/27/16 06:20 09/27/16 06:20 Microbiology 09/26/16 14:10 Blood - Peripheral Venous Blood Culture - Preliminary NO GROWTH OBTAINED AFTER 48 HOURS, INCUBATION TO CONTINUE FOR 3 DAYS. 09/26/16 14:10 Blood - Peripheral Venous Blood Culture - Preliminary NO GROWTH OBTAINED AFTER 48 HOURS, INCUBATION TO CONTINUE FOR 3 DAYS. 09/26/16 13:43 Urine - Urine - Catheterized Urine Culture - Preliminary Lactose Fermenting Neg Bacilli a/p UTI hematuria neurogenic bladder MS continue rocephin, was on cipro as outpt needs f/u with her urologist to address discomfort with self cath and hematuria if it persists after treatment for UTI
[2016-09-29] MEDS: LACTOBACILLUS ACIDOPHILUS 1 EACH TAB (FP) PO SCH (10:35)
[2016-09-29] MEDS: PHENAZOPYRIDINE HCL 100 MG TABLET (FP) PO SCH ×2 (10:35→21:16)
[2016-09-29] MEDS: [UNRECOGNIZED DRUG - REMARK] PO SCH (10:35)
[2016-09-29] MEDS: ALPRAZolam 0.25 MG TABLET PO SCH ×2 (10:36→21:15)
[2016-09-29] MEDS: CEFTRIAXONE 100 ML IVPB SCH (10:36)
[2016-09-29] MEDS: SERTRALINE HCL 50 MG TABLET (FP) PO SCH (10:36)
[2016-09-29] MEDS: ENOXAPARIN NA (PORCINE) 40 MG/0.4 ML DISP.SYRIN SQ SCH (10:36)
[2016-09-29] MEDS ORDERED: PT OWN MED DRAWER 7, Y5N ONE ×2 (10:51→20:57)
--- NOTE | 2016-09-29 10:57 | PN ---
Progress Note (short form) - Note Progress Note: pt continue to have abdominal discomfort no other issues u/c noted afebrile no distress Vital Signs Temp 97.6 F 09/29/16 07:52 Pulse 72 09/29/16 07:52 Resp 18 09/29/16 07:52 BP 119/78 09/29/16 07:52 Pulse Ox 98 09/28/16 21:00 Intake & Output 09/28/16 09/28/16 09/29/16 11:59 23:59 11:59 Intake Total 550 1750 1500 Balance 550 1750 1500 Intake: IV 600 900 D5-1/2Ns+40 Meq KCl - 1, 600 900 000 ml @ 75 mls/hr IV ASDIR [facility] Rx#:[id number] IVPB 100 Oral 550 1050 600 Other: Voiding Method Self-Catheterization Self-Catheterization Self-Catheterization # Unmeasured Voids Straight Cath 300 Void 1 1 Bowel Movement Yes No No # Bowel Movements 1 CBC, BMP 09/27/16 06:20 09/27/16 06:20 Microbiology 09/26/16 13:43 Urine Culture - Final Urine - Urine - Catheterized Escherichia Coli 09/26/16 14:10 Blood Culture - Preliminary Blood - Peripheral Venous NO GROWTH OBTAINED AFTER 48 HOURS, INCUBATION TO CONTINUE FOR 3 DAYS. 09/26/16 14:10 Blood Culture - Preliminary Blood - Peripheral Venous NO GROWTH OBTAINED AFTER 48 HOURS, INCUBATION TO CONTINUE FOR 3 DAYS. Physical Examination Constitutional: Yes: No Distress, Calm Cardiovascular: Yes: Regular Rate and Rhythm Respiratory: Yes: CTA Bilaterally Gastrointestinal: Yes: soft/ non tender Renal/: Yes: decreased left cva tenderness Edema: No Neurological: Yes: Alert, Oriented Psychiatric: Yes: Alert, Oriented Imaging - Results Cat Scan: Report Reviewed Ultrasound: Report Reviewed Problem List - Problems (1) Multiple sclerosis Code(s): G35 - MULTIPLE SCLEROSIS (2) UTI (urinary tract infection) Code(s): N39.0 - URINARY TRACT INFECTION, SITE NOT SPECIFIED Qualifiers: Urinary tract infection type: catheter-associated UTI Indwelling urinary catheter type: unspecified Encounter type: initial encounter Qualified Code(s): T83.511A - Infection and inflammatory reaction due to indwelling urethral catheter, initial encounter; N39.0 - Urinary tract infection , site not specified (3) Hydronephrosis Code(s): N13.30 - UNSPECIFIED HYDRONEPHROSIS Qualifiers: Hydronephrosis type: other Qualified Code(s): N13.39 - Other hydronephrosis Assessment/Plan continue abx will get u/s abdomen/ kidneys done daily oob - chair will follow
[2016-09-29] MEDS: D5-1/2NS+40 MEQ KCL - 1,000 ML IV SCH ×2 (11:11→12:00)
--- NOTE | 2016-09-29 11:45 | PN ---
Progress Note (short form) - Note Progress Note: Renal follow up for JULIANNE and UTI Pt seen and examined at the bedside continues to have pain in the lower abd and right LQ no fever, chills has some hematuria with she self catheterizes for voiding Vital Signs Temperature 97.6 F 09/29/16 07:52 Pulse Rate 72 09/29/16 07:52 Respiratory Rate 18 09/29/16 07:52 Blood Pressure 119/78 09/29/16 07:52 O2 Sat by Pulse Oximetry (%) 98 09/28/16 21:00 Intake & Output 09/26/16 09/27/16 09/28/16 09/29/16 23:59 23:59 23:59 23:59 Intake Total 300 2325 2300 1500 Output Total 500 Balance 300 1825 2300 1500 Weight 157 lb Gen: NAD CVS : RRR Lungs: CTA, no rales or wheeze Abd: + tenderness, RLQ Ext: NO edema CBC, BMP 09/27/16 06:20 09/27/16 06:20 Current Medications Acetaminophen (Tylenol -) 325 mg PO Q4H PRN PRN Reason: PAIN Stop: 09/30/16 00:08 Last Admin: 09/29/16 07:04 Dose: 325 mg Alprazolam (Xanax -) 0.25 mg PO BID [facility] Last Admin: 09/29/16 10:36 Dose: 0.25 mg Atorvastatin Calcium (Lipitor -) 40 mg PO [facility] Last Admin: 09/28/16 21:40 Dose: 40 mg Baclofen (Lioresal -) 20 mg PO HS [facility] Last Admin: 09/28/16 21:40 Dose: 20 mg Bupropion HCl (Wellbutrin Xl -) 300 mg PO DAILY [facility] Last Admin: 09/29/16 10:35 Dose: 300 mg Enoxaparin Sodium (Lovenox -) 40 mg SQ DAILY [facility] Last Admin: 09/29/16 10:36 Dose: 40 mg Gabapentin (Neurontin -) 600 mg PO [facility] Last Admin: 09/28/16 21:38 Dose: 600 mg Dextrose/Sodium Chloride (D5-1/2ns+40 Meq Kcl -) 1,000 mls @ 75 mls/hr IV ASDIR [facility] Last Admin: 09/29/16 11:11 Dose: 75 mls/hr Ceftriaxone Sodium (Rocephin 2gm Ivpb (Pre-Docked)) 100 mls @ 200 mls/hr IVPB DAILY [facility] Last Admin: 09/29/16 10:36 Dose: 200 mls/hr Lactobacillus Acidophilus (Bacid -) 1 tab PO DAILY [facility] Last Admin: 09/29/16 10:35 Dose: 1 tab Morphine Sulfate (Morphine Injection -) 2 mg IVPUSH Q6H PRN PRN Reason: PAIN Last Admin: 09/29/16 10:40 Dose: 2 mg Non-Form(Pt's Own (Med-Gilenya 0.5mg)) 1 each PO DAILY [facility] Last Admin: 09/29/16 10:35 Dose: 1 each Oxycodone HCl (Roxicodone -) 7.5 mg PO Q4H PRN PRN Reason: PAIN Last Admin: 09/29/16 07:03 Dose: 7.5 mg Phenazopyridine HCl (Pyridium -) 100 mg PO BID [facility] Last Admin: 09/29/16 10:35 Dose: 100 mg Ropinirole HCl (Requip -) 1 mg PO HS [facility] Last Admin: 09/28/16 21:41 Dose: 1 mg Sertraline HCl (Zoloft -) 100 mg PO DAILY [facility] Last Admin: 09/29/16 10:36 Dose: 100 mg Zolpidem Tartrate (Ambien -) 10 mg PO HS PRN Last Admin: 09/28/16 21:44 Dose: 10 mg A/P 46 year old with PMhx of MS, Urinary retention presented with Abd/Flank pain and UTI #Urinary Tract infection Pt was resisitent to Cipro continue Ceftriaxone continues to have discomfort in lower abd, will check Bladder US if pain does not improve would consider cT + contrast of the Abd/Pelvis #JULIANNE secondary to UTI and obstruction pt now self catheterizes 3x daily Cr improved continue to trend as inpatient Thank you Drake Flynn DO
--- NOTE | 2016-09-29 13:12 | CONS ---
DATE OF CONSULTATION: DATE OF DICTATION: 09/27/2016 HISTORY OF PRESENT ILLNESS: The patient is a 46-year-old female with a history of multiple sclerosis who was evaluated for urinary tract infection/pyelonephritis. The patient was diagnosed as an outpatient with a recurrent urinary tract infection. According to the notes, she had a sensitive Klebsiella for which she was prescribed ciprofloxacin. Despite taking the ciprofloxacin for 6 days, she had worsening complaints of flank pain and suprapubic pressure. In addition, she had fevers, chills, generalized weakness and fatigue. She is now admitted with urinary tract infection and exacerbation of MS. The patient has a long history of MS and has a neurogenic bladder. She is supposed to catheterize herself 3 times a day, however, admits to poor adherence to this practice. She states that she has had frequent urinary tract infections and has had resistant urinary tract pathogens in the past. She has had no recent hospitalizations at [facility], however, has had recent hospitalizations at [facility] for urinary tract infections and exacerbation of MS. At one point, the patients mother states she had been receiving antibiotics via a PICC line at home. At the present time, she complains of generalized weakness, fatigue, fevers, chills, bilateral flank pain, and suprapubic pressure. PAST MEDICAL HISTORY: As above, includes multiple sclerosis and neurogenic bladder. ALLERGIES: No known allergies. MEDICATIONS: At the present time include Tylenol, ceftriaxone, Neurontin, Wellbutrin, Zoloft, Xanax, baclofen, Lipitor. SOCIAL HISTORY: Patient resides at home. Positive history of tobacco and EtOH. SYSTEMS REVIEW: Neurologic: As per HPI. Cardiac: Negative chest pain or palpitations. Respiratory: Negative for cough or sputum production. Gastrointestinal: Negative for vomiting or diarrhea. Genitourinary: As per HPI. LABORATORY DATA: White count 5.7, hematocrit 35.1, platelet count 205. ESR 16. BUN 16, creatinine 0.8. Liver enzymes normal. Urinalysis negative leukocyte esterase. Renal sonogram shows mild left renal hydronephrosis and fullness of the right renal pelvis. PHYSICAL EXAMINATION: General: She is awake and alert. She is in no acute distress. Vital signs: Temperature 98.0, blood pressure 112/64, pulse 75 and regular, respirations 20 per minute. HEENT: Sclerae anicteric. Heart: Heart sounds S1, S2. Lungs: Clear. Abdomen: Soft. There is some mild bilateral CVA tenderness as well as suprapubic tenderness. Extremities: Negative for edema. IMPRESSION: 1. Urinary tract infection/possible sepsis secondary to urinary tract infection. 2. Pyelonephritis. 3. Exacerbation multiple sclerosis. 4. Neurogenic bladder. Suspect patient has partially treated pyelonephritis. Will await repeat urine culture and blood cultures. Substitute ceftriaxone 2 g IV piggyback daily. Intermittent straight catheterization as needed. Will follow. Thank you for the kind referral. ASHLEIGH REGALADO M.D. BULMARO/[id number]
[2016-09-29] MEDS: BACLOFEN 10 MG TABLET (FP) PO SCH (21:15)
[2016-09-29] MEDS: ATORVASTATIN CA 40 MG TABLET (FP) PO SCH (21:15)
[2016-09-29] MEDS: GABAPENTIN 300 MG CAPSULE (FP) PO SCH (21:15)
[2016-09-29] MEDS: rOPINIRole HCL 1 MG TABLET (FP) PO SCH (21:16)
[2016-09-29] MEDS: ZOLPIDEM TARTRATE 5 MG TABLET PO PRN (21:30)
[2016-09-30] MEDS: oxyCODONE HCL 5 MG TABLET PO PRN ×4 (02:46→21:20)
[2016-09-30 08:07] LABS: BASOPHIL 0.4 % (0-2.0); EOSINOPHIL 1.6 % (0-4.5); MCH 29.6 pg (25.7-33.7); MCHC 34.2 g/dl (32.0-36.0); MEAN CELL VOLUME 86.5 fl (80-96); MEAN PLT VOLUME 9.1 fl (7.5-11.1); NEUTROPHILS 73.5 % (42.8-82.8); PLATELET COUNT 223 K/MM3 (134-434); RDW 14.1 % (11.6-15.6); WHITE BLOOD COUNT 4.9 K/mm3 (4.0-10.0)
--- NOTE | 2016-09-30 08:16 | PN ---
Progress Note (short form) - Note Progress Note: Renal follow up for JULIANNE and UTI Pt seen and examined at the bedside abd discomfort is improved today has a NAVA this am no sob, chest pain, N/V/D Vital Signs Temperature 98.4 F 09/29/16 19:00 Pulse Rate 80 09/29/16 19:00 Respiratory Rate 20 09/29/16 20:43 Blood Pressure 120/82 09/29/16 19:00 O2 Sat by Pulse Oximetry (%) 99 09/29/16 20:43 Intake & Output 09/27/16 09/28/16 09/29/16 09/30/16 23:59 23:59 23:59 23:59 Intake Total 2325 2300 3700 900 Output Total 500 Balance 1825 2300 3700 900 Gen: NAD CVS : RRR Lungs: CTA, no rales or wheeze Abd: + tenderness, RLQ (less then yesterday) Ext: NO edema Labs pending Current Medications Alprazolam (Xanax -) 0.25 mg PO BID [facility] Last Admin: 09/29/16 21:15 Dose: 0.25 mg Atorvastatin Calcium (Lipitor -) 40 mg PO HS [facility] Last Admin: 09/29/16 21:15 Dose: 40 mg Baclofen (Lioresal -) 20 mg PO HS [facility] Last Admin: 09/29/16 21:15 Dose: 20 mg Bupropion HCl (Wellbutrin Xl -) 300 mg PO DAILY [facility] Last Admin: 09/29/16 10:35 Dose: 300 mg Enoxaparin Sodium (Lovenox -) 40 mg SQ DAILY [facility] Last Admin: 09/29/16 10:36 Dose: 40 mg Gabapentin (Neurontin -) 600 mg PO HS [facility] Last Admin: 09/29/16 21:15 Dose: 600 mg Dextrose/Sodium Chloride (D5-1/2ns+40 Meq Kcl -) 1,000 mls @ 75 mls/hr IV ASDIR [facility] Last Admin: 09/29/16 12:00 Dose: Not Given Ceftriaxone Sodium (Rocephin 2gm Ivpb (Pre-Docked)) 100 mls @ 200 mls/hr IVPB DAILY [facility] Last Admin: 09/29/16 10:36 Dose: 200 mls/hr Lactobacillus Acidophilus (Bacid -) 1 tab PO DAILY [facility] Last Admin: 09/29/16 10:35 Dose: 1 tab Non-Form(Pt's Own (Med-Gilenya 0.5mg)) 1 each PO DAILY [facility] Last Admin: 09/29/16 10:35 Dose: 1 each Oxycodone HCl (Roxicodone -) 7.5 mg PO Q4H PRN PRN Reason: PAIN Last Admin: 09/30/16 06:41 Dose: 7.5 mg Phenazopyridine HCl (Pyridium -) 100 mg PO BID [facility] Last Admin: 09/29/16 21:16 Dose: 100 mg Ropinirole HCl (Requip -) 1 mg PO HS [facility] Last Admin: 09/29/16 21:16 Dose: 1 mg Sertraline HCl (Zoloft -) 100 mg PO DAILY [facility] Last Admin: 09/29/16 10:36 Dose: 100 mg A/P 46 year old with PMhx of MS, Urinary retention presented with Abd/Flank pain and UTI #Urinary Tract infection on Ceftriaxone CT of the Abd w/o contrast showed no stones or evidence of pylonephritis Bladder US done to r/o collection/hematoma overt cystitis was negative will follow up with ID as to the recommended duration of IV Abx Urology follow up as outpatient #JULIANNE Renal function improved as of yesterday on hypotonic IVF Hydrono noted on US but ? if functional hydronephrosis as Renal fucntion improved Thank you Drake Flynn DO
[2016-09-30 08:25] LABS: ALBUMIN 3.5 g/dl (3.4-5.0); ANION GAP 6 (8-16); CALCIUM 9.3 mg/dL (8.5-10.1); CO2 33 mmol/L (21-32); GLUCOSE,RANDOM 97 mg/dL (74-106); MAGNESIUM 2.1 mg/dL (1.8-2.4)
[2016-09-30 08:28] LABS: ALK PHOS 81 U/L (45-117); BILIRUBIN,TOTAL 0.3 mg/dL (0.2-1.0); CREATININE 0.8 mg/dL (0.55-1.02); PHOSPHOROUS 3.4 mg/dL (2.5-4.9); SGOT/AST 32 U/L (15-37); SGPT/ALT 44 U/L (12-78); TOT PROT 6.1 g/dl (6.4-8.2)
[2016-09-30] MEDS ORDERED: PT OWN MED DRAWER 7, Y5N ONE ×2 (09:49→21:05)
[2016-09-30] MEDS: [UNRECOGNIZED DRUG - REMARK] PO SCH (10:05)
[2016-09-30] MEDS: LACTOBACILLUS ACIDOPHILUS 1 EACH TAB (FP) PO SCH (10:05)
[2016-09-30] MEDS: SERTRALINE HCL 50 MG TABLET (FP) PO SCH (10:05)
[2016-09-30] MEDS: PHENAZOPYRIDINE HCL 100 MG TABLET (FP) PO SCH ×2 (10:06→21:20)
[2016-09-30] MEDS: ENOXAPARIN NA (PORCINE) 40 MG/0.4 ML DISP.SYRIN SQ SCH (10:06)
[2016-09-30] MEDS: CEFTRIAXONE 100 ML IVPB SCH (10:06)
[2016-09-30] MEDS: ALPRAZolam 0.25 MG TABLET PO SCH ×2 (10:06→21:19)
--- NOTE | 2016-09-30 10:30 | PN ---
Progress Note (short form) - Note Progress Note: Pt sen/ examined improvement in abd discomfort but still having afebrile lactic acid elevated today. Vital Signs Temp 98.6 F 09/30/16 08:00 Pulse 76 09/30/16 08:00 Resp 18 09/30/16 08:00 BP 111/70 09/30/16 08:00 Pulse Ox 99 09/29/16 20:43 Intake & Output 09/29/16 09/29/16 09/30/16 11:59 23:59 11:59 Intake Total 1500 2200 900 Balance 1500 2200 900 Intake: IV 900 1200 900 D5-1/2Ns+40 Meq KCl - 1, 900 1200 900 000 ml @ 75 mls/hr IV ASDIR [facility] Rx#:[id number] IVPB 200 Oral 600 800 Other: Voiding Method Self-Catheterization Self-Catheterization # Unmeasured Voids Straight Cath 300 Void 1 1 Bowel Movement No No # Bowel Movements 0 Active Medications Alprazolam (Xanax -) 0.25 mg PO BID [facility] Last Admin: 09/30/16 10:06 Dose: 0.25 mg Atorvastatin Calcium (Lipitor -) 40 mg PO HS [facility] Last Admin: 09/29/16 21:15 Dose: 40 mg Baclofen (Lioresal -) 20 mg PO HS [facility] Last Admin: 09/29/16 21:15 Dose: 20 mg Bupropion HCl (Wellbutrin Xl -) 300 mg PO DAILY [facility] Last Admin: 09/30/16 10:05 Dose: 300 mg Enoxaparin Sodium (Lovenox -) 40 mg SQ DAILY [facility] Last Admin: 09/30/16 10:06 Dose: 40 mg Gabapentin (Neurontin -) 600 mg PO HS [facility] Last Admin: 09/29/16 21:15 Dose: 600 mg Ceftriaxone Sodium (Rocephin 2gm Ivpb (Pre-Docked)) 100 mls @ 200 mls/hr IVPB DAILY [facility] Last Admin: 09/30/16 10:06 Dose: 200 mls/hr Potassium Chloride/Sodium Chloride (Ns+20 Meq Kcl -) 1,000 mls @ 100 mls/hr IV ASDIR [facility] Lactobacillus Acidophilus (Bacid -) 1 tab PO DAILY [facility] Last Admin: 09/30/16 10:05 Dose: 1 tab Non-Form(Pt's Own (Med-Gilenya 0.5mg)) 1 each PO DAILY [facility] Last Admin: 09/30/16 10:05 Dose: 1 each Oxycodone HCl (Roxicodone -) 7.5 mg PO Q4H PRN PRN Reason: PAIN Last Admin: 09/30/16 06:41 Dose: 7.5 mg Phenazopyridine HCl (Pyridium -) 100 mg PO BID [facility] Last Admin: 09/30/16 10:06 Dose: 100 mg Ropinirole HCl (Requip -) 1 mg PO HS [facility] Last Admin: 09/29/16 21:16 Dose: 1 mg Sertraline HCl (Zoloft -) 100 mg PO DAILY [facility] Last Admin: 09/30/16 10:05 Dose: 100 mg CBC, BMP 09/30/16 06:00 09/30/16 06:00 CMP Sodium 143 mmol/L (136-145) 09/30/16 06:00 Potassium 4.7 mmol/L (3.5-5.1) D 09/30/16 06:00 Chloride 104 mmol/L (98-107) 09/30/16 06:00 Carbon Dioxide 33 mmol/L (21-32) H 09/30/16 06:00 Anion Gap 6 (8-16) L 09/30/16 06:00 BUN 9 mg/dL (7-18) D 09/30/16 06:00 Creatinine 0.8 mg/dL (0.55-1.02) 09/30/16 06:00 Creat Clearance w eGFR > 60 (>60) 09/30/16 06:00 Random Glucose 97 mg/dL (74-106) 09/30/16 06:00 Lactic Acid 3.3 mmol/L (0.4-2.0) H* 09/30/16 06:00 Calcium 9.3 mg/dL (8.5-10.1) 09/30/16 06:00 Phosphorus 3.4 mg/dL (2.5-4.9) 09/30/16 06:00 Magnesium 2.1 mg/dL (1.8-2.4) 09/30/16 06:00 Total Bilirubin 0.3 mg/dL (0.2-1.0) 09/30/16 06:00 AST 32 U/L (15-37) D 09/30/16 06:00 ALT 44 U/L (12-78) D 09/30/16 06:00 Alkaline Phosphatase 81 U/L (45-117) D 09/30/16 06:00 Total Protein 6.1 g/dl (6.4-8.2) L 09/30/16 06:00 Albumin 3.5 g/dl (3.4-5.0) 09/30/16 06:00 Microbiology 09/26/16 14:10 Blood Culture - Preliminary Blood - Peripheral Venous NO GROWTH OBTAINED AFTER 72 HOURS, INCUBATION TO CONTINUE FOR 2 DAYS. 09/26/16 14:10 Blood Culture - Preliminary Blood - Peripheral Venous NO GROWTH OBTAINED AFTER 72 HOURS, INCUBATION TO CONTINUE FOR 2 DAYS. 09/26/16 13:43 Urine Culture - Final Urine - Urine - Catheterized Escherichia Coli Physical Examination Constitutional: Yes: No Distress, Calm Cardiovascular: Yes: Regular Rate and Rhythm Respiratory: Yes: CTA Bilaterally Gastrointestinal: Yes: soft/ non tender Renal/: Yes: non tender Edema: No Neurological: Yes: Alert, Oriented Psychiatric: Yes: Alert, Oriented Imaging - Results Cat Scan: Report Reviewed Ultrasound: Report Reviewed Problem List - Problems (1) Multiple sclerosis Code(s): G35 - MULTIPLE SCLEROSIS (2) UTI (urinary tract infection) Code(s): N39.0 - URINARY TRACT INFECTION, SITE NOT SPECIFIED Qualifiers: Urinary tract infection type: catheter-associated UTI Indwelling urinary catheter type: unspecified Encounter type: initial encounter Qualified Code(s): T83.511A - Infection and inflammatory reaction due to indwelling urethral catheter, initial encounter; N39.0 - Urinary tract infection , site not specified (3) Hydronephrosis Code(s): N13.30 - UNSPECIFIED HYDRONEPHROSIS Qualifiers: Hydronephrosis type: other Qualified Code(s): N13.39 - Other hydronephrosis Assessment/Plan clinically better continue abx will give fluids today repeat lactic acid tomorrow. discussed with Dr. Flynn also today
[2016-09-30] MEDS ORDERED: ARTIFICIAL TEARS (POLYVINYL ALCOHOL 1.4%) OPTH DROPS OU PRN (11:12)
[2016-09-30] MEDS ORDERED: ZOLPIDEM TARTRATE 5 MG TABLET PO PRN (11:14)
[2016-09-30] MEDS: SODIUM CHLORIDE 0.9%/KCL 1,000 ML IV SCH ×2 (11:20→23:50)
[2016-09-30] MEDS: morphine CARPU-JECT 2 MG/1 ML DISP.SYRIN IVPUSH PRN ×2 (11:21→18:12)
--- NOTE | 2016-09-30 11:37 | PN ---
Progress Note (short form) - Note Progress Note: abdominal discomfort improved no fevers reports she does not self cath as she should- sometimes skips altogether and never 3 times aday- reports pain with self cath Vital Signs Period Temp Pulse Resp BP Sys/Marquez Pulse Ox Last 24 Hr 97.6 F-98.6 F 68-80 18-20 102-120/65-84 99 cor-rrr lungs clear abd soft,nt, mild suprapubic tenderness ext no edema CBC, BMP 09/30/16 06:00 09/30/16 06:00 Microbiology 09/26/16 14:10 Blood - Peripheral Venous Blood Culture - Preliminary NO GROWTH OBTAINED AFTER 72 HOURS, INCUBATION TO CONTINUE FOR 2 DAYS. 09/26/16 14:10 Blood - Peripheral Venous Blood Culture - Preliminary NO GROWTH OBTAINED AFTER 72 HOURS, INCUBATION TO CONTINUE FOR 2 DAYS. 09/26/16 13:43 Urine - Urine - Catheterized Urine Culture - Final Escherichia Coli a/p UTI-quinolone resistant ecoli hematuria neurogenic bladder MS continue rocephin, was on cipro as outpt needs f/u with her urologist to address discomfort with self cath and hematuria if it persists after treatment for UTI can change to po keflex 500 bid when ready for discharge
[2016-09-30] MEDS: ACETAMINOPHEN 325 MG TABLET (FP) PO PRN (14:53)
[2016-09-30] MEDS: GABAPENTIN 300 MG CAPSULE (FP) PO SCH (21:19)
[2016-09-30] MEDS: BACLOFEN 10 MG TABLET (FP) PO SCH (21:19)
[2016-09-30] MEDS: ATORVASTATIN CA 40 MG TABLET (FP) PO SCH (21:19)
[2016-09-30] MEDS: rOPINIRole HCL 1 MG TABLET (FP) PO SCH (21:20)
[2016-10-01] MEDS: morphine CARPU-JECT 2 MG/1 ML DISP.SYRIN IVPUSH PRN ×2 (00:40→09:29)
[2016-10-01] MEDS: ACETAMINOPHEN 325 MG TABLET (FP) PO PRN ×2 (04:24→14:09)
[2016-10-01] MEDS: oxyCODONE HCL 5 MG TABLET PO PRN ×2 (04:25→14:11)
[2016-10-01 07:15] LABS: BASOPHIL 0.6 % (0-2.0); EOSINOPHIL 1.3 % (0-4.5); MCH 29.3 pg (25.7-33.7); MCHC 34.3 g/dl (32.0-36.0); MEAN CELL VOLUME 85.4 fl (80-96); MEAN PLT VOLUME 8.6 fl (7.5-11.1); NEUTROPHILS 73.4 % (42.8-82.8); PLATELET COUNT 226 K/MM3 (134-434); RDW 14.2 % (11.6-15.6); WHITE BLOOD COUNT 5.5 K/mm3 (4.0-10.0)
[2016-10-01 07:38] LABS: ALBUMIN 3.4 g/dl (3.4-5.0); ANION GAP 5 (8-16); CALCIUM 9.1 mg/dL (8.5-10.1); CO2 31 mmol/L (21-32); GLUCOSE,RANDOM 89 mg/dL (74-106); SGOT/AST 27 U/L (15-37); SGPT/ALT 44 U/L (12-78)
[2016-10-01 07:40] LABS: ALK PHOS 76 U/L (45-117); CREATININE 0.8 mg/dL (0.55-1.02)
[2016-10-01 07:48] LABS: BILIRUBIN,TOTAL < 0.1 mg/dL (0.2-1.0)
[2016-10-01] MEDS ORDERED: PT OWN MED DRAWER 7, Y5N ONE (09:25)
[2016-10-01] MEDS: LACTOBACILLUS ACIDOPHILUS 1 EACH TAB (FP) PO SCH (09:30)
[2016-10-01] MEDS: ALPRAZolam 0.25 MG TABLET PO SCH (09:30)
[2016-10-01] MEDS: CEFTRIAXONE 100 ML IVPB SCH (09:30)
[2016-10-01] MEDS: SERTRALINE HCL 50 MG TABLET (FP) PO SCH (09:30)
[2016-10-01] MEDS: ENOXAPARIN NA (PORCINE) 40 MG/0.4 ML DISP.SYRIN SQ SCH (09:30)
[2016-10-01] MEDS: [UNRECOGNIZED DRUG - REMARK] PO SCH (09:31)
[2016-10-01] MEDS: PHENAZOPYRIDINE HCL 100 MG TABLET (FP) PO SCH (09:32)
--- NOTE | 2016-10-01 10:56 | PN ---
Progress Note, Physician History of Present Illness: Still with R flank pain, suprapubic pressure Mild dysuria No fever/ chills Tolerating ceftriaxone - Current Medication List Current Medications: Active Medications Acetaminophen (Tylenol -) 325 mg PO Q4H PRN PRN Reason: FEVER OR PAIN Last Admin: 10/01/16 04:24 Dose: 325 mg Alprazolam (Xanax -) 0.25 mg PO BID [facility] Last Admin: 10/01/16 09:30 Dose: 0.25 mg Artificial Tears (Artificial Tears) 1 drop OU TID PRN PRN Reason: DRY EYES Last Admin: 09/30/16 12:22 Dose: 1 drop Atorvastatin Calcium (Lipitor -) 40 mg PO HS [facility] Last Admin: 09/30/16 21:19 Dose: 40 mg Baclofen (Lioresal -) 20 mg PO HS [facility] Last Admin: 09/30/16 21:19 Dose: 20 mg Bupropion HCl (Wellbutrin Xl -) 300 mg PO DAILY [facility] Last Admin: 10/01/16 09:32 Dose: 300 mg Enoxaparin Sodium (Lovenox -) 40 mg SQ DAILY [facility] Last Admin: 10/01/16 09:30 Dose: 40 mg Gabapentin (Neurontin -) 600 mg PO HS [facility] Last Admin: 09/30/16 21:19 Dose: 600 mg Ceftriaxone Sodium (Rocephin 2gm Ivpb (Pre-Docked)) 100 mls @ 200 mls/hr IVPB DAILY [facility] Last Admin: 10/01/16 09:30 Dose: 200 mls/hr Potassium Chloride/Sodium Chloride (Ns+20 Meq Kcl -) 1,000 mls @ 100 mls/hr IV ASDIR [facility] Last Admin: 09/30/16 23:50 Dose: 100 mls/hr Lactobacillus Acidophilus (Bacid -) 1 tab PO DAILY [facility] Last Admin: 10/01/16 09:30 Dose: 1 tab Morphine Sulfate (Morphine Injection -) 2 mg IVPUSH Q6H PRN PRN Reason: PAIN Last Admin: 10/01/16 09:29 Dose: 2 mg Non-Form(Pt's Own (Med-Gilenya 0.5mg)) 1 each PO DAILY [facility] Last Admin: 10/01/16 09:31 Dose: 1 each Oxycodone HCl (Roxicodone -) 7.5 mg PO Q4H PRN PRN Reason: PAIN Last Admin: 10/01/16 04:25 Dose: 7.5 mg Phenazopyridine HCl (Pyridium -) 100 mg PO BID [facility] Last Admin: 10/01/16 09:32 Dose: 100 mg Ropinirole HCl (Requip -) 1 mg PO HS [facility] Last Admin: 09/30/16 21:20 Dose: 1 mg Sertraline HCl (Zoloft -) 100 mg PO DAILY [facility] Last Admin: 10/01/16 09:30 Dose: 100 mg Zolpidem Tartrate (Ambien -) 10 mg PO HS PRN Last Admin: 09/30/16 21:19 Dose: 10 mg - Objective Vital Signs: Vital Signs Temperature 98.5 F 10/01/16 02:00 Pulse Rate 77 10/01/16 02:00 Respiratory Rate 20 10/01/16 02:00 Blood Pressure 110/66 10/01/16 02:00 O2 Sat by Pulse Oximetry (%) 98 09/30/16 21:00 Constitutional: Yes: No Distress Eyes: Yes: Conjunctiva Clear Cardiovascular: Yes: Regular Rate and Rhythm, S1, S2 Respiratory: Yes: CTA Bilaterally Gastrointestinal: Yes: Normal Bowel Sounds, Soft. No: Tenderness Genitourinary: Yes: CVA Tenderness - Right Labs: CBC, BMP 10/01/16 06:25 10/01/16 06:25 INR, PTT INR 0.88 (0.82-1.09) 09/26/16 14:10 Assessment/Plan Pyelonephritis Recurrent UTI Quinolone (r) E coli Neurogenic bladder MS Await c/s Continue ceftriaxone 2gm IVPB q24h PICC for outpatient antibiotic tx Would treat 14d IV in light of pyelo, recurrent UTIs, and failed oral therapy
[2016-10-01] MEDS ORDERED: PICC LINE 8 ML FLUSH PROTOCOL IVPUSH PRN (11:00)
--- NOTE | 2016-10-01 11:04 | PN ---
Progress Note (short form) - Note Progress Note: Pt sen/ examined still having supra pubic discomfort. i/d f/u noted / discussed with Dr. Morataya I agree that she should have abx - shelter for concern of partially treated pyelo in light of persistant symptoms overall better Vital Signs Temp 98.5 F 10/01/16 02:00 Pulse 77 10/01/16 02:00 Resp 20 10/01/16 02:00 BP 110/66 10/01/16 02:00 Pulse Ox 98 09/30/16 21:00 Intake & Output 09/30/16 09/30/16 10/01/16 11:59 23:59 11:59 Intake Total 900 2450 1330 Balance 900 2450 1330 Intake: IV 900 1850 1000 D5-1/2Ns+40 Meq KCl - 1, 900 450 000 ml @ 75 mls/hr IV ASDIR [facility] Rx#:[id number] Ns+20 Meq KCl - 1,000 ml 1400 1000 @ 100 mls/hr IV ASDIR [facility] Rx#:[id number] IVPB 200 Oral 400 330 Other: Voiding Method Self-Catheterization Self-Catheterization Self-Catheterization # Unmeasured Voids Straight Cath 300 Void 2 Bowel Movement No # Bowel Movements 0 Active Medications Alprazolam (Xanax -) 0.25 mg PO BID [facility] Last Admin: 09/30/16 10:06 Dose: 0.25 mg Atorvastatin Calcium (Lipitor -) 40 mg PO [facility] Last Admin: 09/29/16 21:15 Dose: 40 mg Baclofen (Lioresal -) 20 mg PO [facility] Last Admin: 09/29/16 21:15 Dose: 20 mg Bupropion HCl (Wellbutrin Xl -) 300 mg PO DAILY [facility] Last Admin: 09/30/16 10:05 Dose: 300 mg Enoxaparin Sodium (Lovenox -) 40 mg SQ DAILY [facility] Last Admin: 09/30/16 10:06 Dose: 40 mg Gabapentin (Neurontin -) 600 mg PO [facility] Last Admin: 09/29/16 21:15 Dose: 600 mg Ceftriaxone Sodium (Rocephin 2gm Ivpb (Pre-Docked)) 100 mls @ 200 mls/hr IVPB DAILY [facility] Last Admin: 09/30/16 10:06 Dose: 200 mls/hr Potassium Chloride/Sodium Chloride (Ns+20 Meq Kcl -) 1,000 mls @ 100 mls/hr IV [facility] Lactobacillus Acidophilus (Bacid -) 1 tab PO DAILY [facility] Last Admin: 09/30/16 10:05 Dose: 1 tab Non-Form(Pt's Own (Med-Gilenya 0.5mg)) 1 each PO DAILY [facility] Last Admin: 09/30/16 10:05 Dose: 1 each Oxycodone HCl (Roxicodone -) 7.5 mg PO Q4H PRN PRN Reason: PAIN Last Admin: 09/30/16 06:41 Dose: 7.5 mg Phenazopyridine HCl (Pyridium -) 100 mg PO BID [facility] Last Admin: 09/30/16 10:06 Dose: 100 mg Ropinirole HCl (Requip -) 1 mg PO HS [facility] Last Admin: 09/29/16 21:16 Dose: 1 mg Sertraline HCl (Zoloft -) 100 mg PO DAILY [facility] Last Admin: 09/30/16 10:05 Dose: 100 mg CBC,CMP WBC 5.5 K/mm3 (4.0-10.0) 10/01/16 06:25 RBC 4.25 M/mm3 (3.60-5.2) 10/01/16 06:25 Hgb 12.5 GM/dL (10.7-15.3) 10/01/16 06:25 Hct 36.3 % (32.4-45.2) 10/01/16 06:25 MCV 85.4 fl (80-96) 10/01/16 06:25 MCH 29.3 pg (25.7-33.7) 10/01/16 06:25 MCHC 34.3 g/dl (32.0-36.0) 10/01/16 06:25 RDW 14.2 % (11.6-15.6) 10/01/16 06:25 Plt Count 226 K/MM3 (134-434) 10/01/16 06:25 MPV 8.6 fl (7.5-11.1) 10/01/16 06:25 Neutrophils % 73.4 % (42.8-82.8) 10/01/16 06:25 Lymphocytes % 13.5 % (8-40) 10/01/16 06:25 Monocytes % 11.2 % (3.8-10.2) H 07/17/17 06:25 Eosinophils % 1.3 % (0-4.5) 10/01/16 06:25 Basophils % 0.6 % (0-2.0) 10/01/16 06:25 ESR 16 mm/hr (0-20) 09/27/16 06:20 Sodium 142 mmol/L (136-145) 10/01/16 06:25 Potassium 4.5 mmol/L (3.5-5.1) 10/01/16 06:25 Chloride 106 mmol/L (98-107) 10/01/16 06:25 Carbon Dioxide 31 mmol/L (21-32) 10/01/16 06:25 Anion Gap 5 (8-16) L 10/01/16 06:25 BUN 14 mg/dL (7-18) D 10/01/16 06:25 Creatinine 0.8 mg/dL (0.55-1.02) 10/01/16 06:25 Creat Clearance w eGFR > 60 (>60) 10/01/16 06:25 Random Glucose 89 mg/dL (74-106) 10/01/16 06:25 Lactic Acid 0.8 mmol/L (0.4-2.0) 10/01/16 06:25 Calcium 9.1 mg/dL (8.5-10.1) 10/01/16 06:25 Phosphorus 3.4 mg/dL (2.5-4.9) 09/30/16 06:00 Magnesium 2.1 mg/dL (1.8-2.4) 09/30/16 06:00 Total Bilirubin < 0.1 mg/dL (0.2-1.0) L D 10/01/16 06:25 AST 27 U/L (15-37) 10/01/16 06:25 ALT 44 U/L (12-78) 10/01/16 06:25 Alkaline Phosphatase 76 U/L (45-117) 10/01/16 06:25 Total Protein 6.0 g/dl (6.4-8.2) L 10/01/16 06:25 Albumin 3.4 g/dl (3.4-5.0) 10/01/16 06:25 Microbiology 09/26/16 14:10 Blood Culture - Preliminary Blood - Peripheral Venous NO GROWTH OBTAINED AFTER 96 HOURS, INCUBATION TO CONTINUE FOR 1 DAYS. 09/26/16 14:10 Blood Culture - Preliminary Blood - Peripheral Venous NO GROWTH OBTAINED AFTER 96 HOURS, INCUBATION TO CONTINUE FOR 1 DAYS. Physical Examination Constitutional: Yes: No Distress, Calm Cardiovascular: Yes: Regular Rate and Rhythm Respiratory: Yes: CTA Bilaterally Gastrointestinal: Yes: soft/ non tender Renal/: Yes: non tender. mild suprapubic tenderness + Edema: No Neurological: Yes: Alert, Oriented Psychiatric: Yes: Alert, Oriented Imaging - Results Cat Scan: Report Reviewed Ultrasound: Report Reviewed Problem List - Problems (1) Multiple sclerosis Code(s): G35 - MULTIPLE SCLEROSIS (2) UTI (urinary tract infection) Code(s): N39.0 - URINARY TRACT INFECTION, SITE NOT SPECIFIED Qualifiers: Urinary tract infection type: catheter-associated UTI Indwelling urinary catheter type: unspecified Encounter type: initial encounter Qualified Code(s): T83.511A - Infection and inflammatory reaction due to indwelling urethral catheter, initial encounter; N39.0 - Urinary tract infection , site not specified (3) Hydronephrosis Code(s): N13.30 - UNSPECIFIED HYDRONEPHROSIS Qualifiers: Hydronephrosis type: other Qualified Code(s): N13.39 - Other hydronephrosis Assessment/Plan clinically stable lactic acid normal eating ok d/c fluids continue abx picc line discussed with pillowcase cutter discussed with pt in detail- agree with same
[2016-10-01 15:18] VITALS: BP 115/72; PULSE 75; TEMP 98.3
--- NOTE | 2016-10-01 16:00 | PN ---
Progress Note (short form) - Note Progress Note: Renal follow up for JULIANNE and UTI Pt seen and examined at the bedside continues to have abd discomfort and right flank pain when her bladder is full no fever, chills, N/V/D Vital Signs Temperature 98.3 F 10/01/16 15:18 Pulse Rate 75 10/01/16 15:18 Respiratory Rate 20 10/01/16 15:18 Blood Pressure 115/72 10/01/16 15:18 O2 Sat by Pulse Oximetry (%) 98 09/30/16 21:00 Gen: NAD CVS : RRR Lungs: CTA, no rales or wheeze Abd: soft + mild tenderness over bladder Ext: NO edema CBC, BMP 10/01/16 06:25 10/01/16 06:25 Current Medications Acetaminophen (Tylenol -) 325 mg PO Q4H PRN PRN Reason: FEVER OR PAIN Last Admin: 10/01/16 14:09 Dose: 325 mg Alprazolam (Xanax -) 0.25 mg PO BID [facility] Last Admin: 10/01/16 09:30 Dose: 0.25 mg Artificial Tears (Artificial Tears) 1 drop OU TID PRN PRN Reason: DRY EYES Last Admin: 09/30/16 12:22 Dose: 1 drop Atorvastatin Calcium (Lipitor -) 40 mg PO HS [facility] Last Admin: 09/30/16 21:19 Dose: 40 mg Baclofen (Lioresal -) 20 mg PO HS [facility] Last Admin: 09/30/16 21:19 Dose: 20 mg Bupropion HCl (Wellbutrin Xl -) 300 mg PO DAILY [facility] Last Admin: 10/01/16 09:32 Dose: 300 mg Enoxaparin Sodium (Lovenox -) 40 mg SQ DAILY [facility] Last Admin: 10/01/16 09:30 Dose: 40 mg Gabapentin (Neurontin -) 600 mg PO HS [facility] Last Admin: 09/30/16 21:19 Dose: 600 mg IV Flush (Picc Line Flush) 8 ml IVPUSH PRN PRN PRN Reason: Protocol Ceftriaxone Sodium (Rocephin 2gm Ivpb (Pre-Docked)) 100 mls @ 200 mls/hr IVPB DAILY [facility] Last Admin: 10/01/16 09:30 Dose: 200 mls/hr Lactobacillus Acidophilus (Bacid -) 1 tab PO DAILY [facility] Last Admin: 10/01/16 09:30 Dose: 1 tab Morphine Sulfate (Morphine Injection -) 2 mg IVPUSH Q6H PRN PRN Reason: PAIN Last Admin: 10/01/16 09:29 Dose: 2 mg Non-Form(Pt's Own (Med-Gilenya 0.5mg)) 1 each PO DAILY [facility] Last Admin: 10/01/16 09:31 Dose: 1 each Oxycodone HCl (Roxicodone -) 7.5 mg PO Q4H PRN PRN Reason: PAIN Last Admin: 10/01/16 14:11 Dose: 7.5 mg Phenazopyridine HCl (Pyridium -) 100 mg PO BID [facility] Last Admin: 10/01/16 09:32 Dose: 100 mg Ropinirole HCl (Requip -) 1 mg PO HS [facility] Last Admin: 09/30/16 21:20 Dose: 1 mg Sertraline HCl (Zoloft -) 100 mg PO DAILY [facility] Last Admin: 10/01/16 09:30 Dose: 100 mg Zolpidem Tartrate (Ambien -) 10 mg PO HS PR[facility] Last Admin: 09/30/16 21:19 Dose: 10 mg A/P 46 year old with PMhx of MS, Urinary retention presented with Abd/Flank pain and UTI #Urinary Tract infection with clinical suspicion of pylonepritis for 2 weeks of IV Abx as per ID #JULIANNE Renal function is stable now s/p IVF and self cath #Lactic acidosis likely due to hypoperufsion as it improved with IV fluids Thank you Drake Flynn DO
--- NOTE | 2016-10-01 16:03 | DS ---
Physical Examination Vital Signs: Vital Signs Temperature 98.3 F 10/01/16 15:18 Pulse Rate 75 10/01/16 15:18 Respiratory Rate 20 10/01/16 15:18 Blood Pressure 115/72 10/01/16 15:18 O2 Sat by Pulse Oximetry (%) 98 09/30/16 21:00 Findings/Remarks: see today progress note Labs: CBC, BMP 10/01/16 06:25 10/01/16 06:25 Discharge Summary Reason For Visit: UTI; MULTIPLE SCLEROSIS; INTRACTABLE PAIN Current Active Problems Essential tremor (Acute) Hydronephrosis (Acute) Intractable pain (Acute) Multiple sclerosis (Acute) UTI (urinary tract infection) (Acute) Hospital Course: Patient is a [age]-year-old female with past medical history of MS, neurogenic bladder (self catheterizes) who presents to the emergency department today complaining of fevers, chills and worsening right flank pain. Patient was diagnosed with a urinary tract infection 6 days ago where Klebsiella was isolated. It was pansensitive and the patient was started on Cipro. she has taken 6 days worth of Cipro. Her pain has gotten increasingly worse even with antibiotics. She presents today for further evaluation and potential IV antibiotics as per Dr. Tammy Iglesias. Patient admits to fevers, chills, abdominal pain, pressure in her bladder, fatigue, and MS flare with numbness and tingling to her hands and feet patient treated for pyelonephritis--- with IV antibiotics ID consultation was taken Urine culture showed Escherichia coli--- resistant to Levaquin Suspicion is that--patient likely has partially treated pyelonephritis Will treat with IV Rocephin for another 10 days Arrangements has been made for IV infusion at home PICC line inserted I had discussed case with casework manager earlier in the day as well as with ID Medications prescribed/reconciled hcs looked Patient to follow with her PMD within a week Patient in agreement Discharge time 40 minutes--in examining/documenting and coordinating care. Condition: Improved - Instructions Referrals: Tammy Contreras MD [Primary Care Provider] - Disposition: HOME - Home Medications Comprehensive Discharge Medication List: Ambulatory Orders Bupropion HCl [Wellbutrin Xl -] 300 mg PO DAILY #0 tab 07/28/13 Ropinirole HCl [Requip -] 1 mg PO HS #0 tablet 07/28/13 Sertraline HCl [Zoloft -] 100 mg PO DAILY #0 tablet 07/28/13 Alprazolam [Xanax] 0.25 mg PO BID 09/26/16 Atorvastatin Ca [Lipitor] 40 mg PO HS 09/26/16 Baclofen 20 mg PO DAILY 09/26/16 Fingolimod HCl [Gilenya] 0.5 mg PO DAILY 09/26/16 Gabapentin [Neurontin -] 600 mg PO HS 09/26/16 Zolpidem Tartrate [Ambien] 10 mg PO HS 09/26/16 Acetaminophen [Tylenol .Regular Strength -] 325 mg PO Q4H PRN #0 tablet Ceftriaxone [Rocephin 2Gm Ivpb (Pre-Docked)] 100 ml IVPB DAILY #10 bag 10/01/16 Lactobacillus Acidophilus [Bacid -] 1 tab PO DAILY #30 tab 10/01/16 Mag Hydrox/Alh/Smc/Dpha/Lido [Magic Mouthwash *Sjr Formula* -] 5 ml MM Q6HPO #1 mouthwash 10/01/16 Oxycodone HCl/Acetaminophen [Percocet 10-325 mg Tablet] 1 each PO QID #40 tab MDD 4 10/01/16 Phenazopyridine HCl [Pyridium -] 100 mg PO BID #20 tablet 10/01/16 Picc Line Flush [Picc Line Flush -] 8 ml IVPUSH PRN PRN #0 ml 10/01/16
== END 2016-10-01 17:44 | disposition home or self-care (01) | DRG 690 ==
LOC: JER 13:10 → JERBED 18:04 → J6S 20:16 → OBSVTOIN 09-27 17:00
PROVIDERS: ADMIT Internal Medicine; ATTEND Internal Medicine
PROC: 02HV33Z Insertion of Infusion Device into Superior Vena Cava, Percutaneous Approach (ICD-10-PCS; principal; 2016-10-01)
PROC: B5181ZA Fluoroscopy of Superior Vena Cava using Low Osmolar Contrast, Guidance (ICD-10-PCS; 2016-10-01)
DX: N12 Tubulo-interstitial nephritis, not specified as acute or chronic (principal); Y84.6 Urinary catheterization as the cause of abnormal reaction of the patient, or of later complication, without mention of misadventure at the time of the procedure; B96.20 Unspecified Escherichia coli [E. coli] as the cause of diseases classified elsewhere; G35 Multiple sclerosis; Z72.0 Tobacco use; N13.39 Other hydronephrosis; N31.8 Other neuromuscular dysfunction of bladder; N39.490 Overflow incontinence; G25.0 Essential tremor; R31.9 Hematuria, unspecified; N17.9 Acute kidney failure, unspecified
CPT/HCPCS: 36415; 36569; 74176; 76775-TC; 76856-TC; 77001-TC; 80053; 81003; 81015; 83605; 83735; 84100; 85025; 85610; 85651; 85730; 87040; 87086; 87186; 99283-25; C1751; G0378; J0475

== ENCOUNTER 2016-10-02 15:03 | Emergency (ER) | payer OTHER ==
[2016-10-02 15:07] VITALS: BMI 25.0
--- NOTE | 2016-10-02 15:58 | PDOC ---
History of Present Illness - General Chief Complaint: Palpitations Stated Complaint: PALPITATIONS, SOB Time Seen by Provider: 10/02/16 15:29 History Source: Patient - History of Present Illness Associated Symptoms: denies: chest pain, cough, diaphoresis, fever/chills, nausea/vomiting, shortness of breath, weakness Past History - Past Medical History Allergies/Adverse Reactions: Allergies Allergy/AdvReac Type Severity Reaction Status Date / Time No Known Allergies Allergy Verified 10/02/16 15:07 Home Medications: Ambulatory Orders Bupropion HCl [Wellbutrin Xl -] 300 mg PO DAILY #0 tab 07/28/13 Ropinirole HCl [Requip -] 1 mg PO HS #0 tablet 07/28/13 Sertraline HCl [Zoloft -] 100 mg PO DAILY #0 tablet 07/28/13 Alprazolam [Xanax] 0.25 mg PO BID 09/26/16 Atorvastatin Ca [Lipitor] 40 mg PO HS 09/26/16 Fingolimod HCl [Gilenya] 0.5 mg PO DAILY 09/26/16 Gabapentin [Neurontin -] 600 mg PO HS 09/26/16 Zolpidem Tartrate [Ambien] 10 mg PO HS 09/26/16 Ceftriaxone [Rocephin 2Gm Ivpb (Pre-Docked)] 100 ml IVPB DAILY #10 bag 10/01/16 Lactobacillus Acidophilus [Bacid -] 1 tab PO DAILY #30 tab 10/01/16 Oxycodone HCl/Acetaminophen [Percocet 10-325 mg Tablet] 1 each PO QID #40 tab MDD 4 10/01/16 Phenazopyridine HCl [Pyridium -] 100 mg PO BID #20 tablet 10/01/16 Picc Line Flush [Picc Line Flush -] 8 ml IVPUSH PRN PRN #0 ml 10/01/16 Baclofen [Lioresal -] 20 mg PO DAILY 10/02/16 GI Disorders: Yes (NEUROGENIC BLADDER. STRAIGHT CATHS.) Hypercholesterolemia: Yes - Psycho/Social/Smoking Cessation Hx Anxiety: No Suicidal Ideation: No Smoking History: Never smoked Number of Cigarettes Smoked Daily: 2 Information on smoking cessation initiated: No 'Breaking Loose' booklet given: 03/20/13 Hx Alcohol Use: Yes (SOCIAL) Drug/Substance Use Hx: No Substance Use Type: None Hx Substance Use Treatment: No Review of Systems - Review of Systems Constitutional: No: Chills, Fever Respiratory: No: Cough, Shortness of Breath Cardiac (ROS): Yes: Palpitations. No: Chest Pain, Lightheadedness, Syncope ABD/GI: No: Nausea, Vomiting : No: Dysuria, Flank Pain, Hematuria *Physical Exam - Vital Signs Last Vital Signs Temp Pulse Resp BP Pulse Ox 98.1 F 71 18 138/88 99 10/02/16 15:05 10/02/16 15:05 10/02/16 15:05 10/02/16 15:05 10/02/16 15:05 - Physical Exam General Appearance: Yes: Appropriately Dressed. No: Apparent Distress HEENT: positive: Normal Voice Neck: positive: Supple Respiratory/Chest: positive: Lungs Clear, Normal Breath Sounds. negative: Respiratory Distress Cardiovascular: positive: Regular Rate, S1, S2 Gastrointestinal/Abdominal: positive: Soft. negative: Tender Musculoskeletal: negative: CVA Tenderness Integumentary: positive: Dry, Warm Neurologic: positive: Fully Oriented, Alert, Normal Mood/Affect Heart Score/ECG Review - ECG Intrepretation Comment:: 10/02/16 16:33 Twelve-lead EKG was performed and reviewed by me. There is normal sinus rhythm with a normal rate. The axis is normal. The intervals are normal. There are no ST or T wave abnormalities. Impression: Normal twelve-lead EKG ED Treatment Course - LABORATORY CBC & Chemistry Diagram: 10/02/16 16:10 10/02/16 16:10 - RADIOLOGY Radiology Studies Ordered: Category Date Time Status CHEST X-RAY PORTABLE* [RAD] Stat Radiology 10/02/16 15:49 Ordered Medical Decision Making - Medical Decision Making 10/02/16 15:52 46-year-old female, history of MS, neurogenic bladder, self catheterizes, status post recent admission for pyelonephritis, sent home yesterday with right PICC line for IV Rocephin with VNS, returns today with palpitations. States after PICC was placed, was having some discomfort to her throat and palpitations. States throat pain has resolved but continues to have intermittent palpitations. No chest pain, shortness of breath, leg pain or swelling. Palpitations have resolved currently See exam Palpitations since PICC line Since resolved No CP/SOB or leg pain/swelling Currently on rocephin via PICC at home for pyelo Well rosa w/ stable vitals and unremarkable exam Etiology unclear at this time, doubt PE -ekg -cxr -labs -discuss dispo w/ pmd, Dr Tammy Mckeon 10/02/16 16:33 10/02/16 17:[address] Iglesias, agrees that if workup negative, patient can be discharged home 10/02/16 18:43 Labs neg. PICC line visualized on chest x-ray, will discuss positioning with Dr. Purvis of IR who placed PICC yesterday 10/02/16 18:[address] Wagner who is unable to see image as he does not currently have access to PACS. States patient was complaining of palpitations even before PICC was placed, but states to be on the safe side, ED can withdraw PICC 1-2 cm out with dressing replaced and have patient come to S1 tomorrow at 8 AM to have PICC evaluated and possibly replaced. Plan was discussed with patient who states she feels uncomfortable with the ED readjusting PICC and states she would prefer to keep it as it is and go see Dr. Purvis in the a.m. ED attending aware. Patient stable for discharge at this time *DC/Admit/Observation/Transfer Diagnosis at time of Disposition: Palpitations - Discharge Dispostion Disposition: HOME Condition at time of disposition: Good - Referrals Referrals: Tammy Contreras MD [Primary Care Provider] - - Patient Instructions Additional Instructions: Dr. Purvis would like you to report to S1 tomorrow at 8 AM to have PICC line evaluated and possibly replaced. You will need to be registered on S1 prior to evaluation Return to ED for worsening of symptoms
[2016-10-02 16:25] LABS: BASOPHIL 0.2 % (0-2.0); EOSINOPHIL 1.2 % (0-4.5); MCH 28.7 pg (25.7-33.7); MCHC 33.4 g/dl (32.0-36.0); MEAN PLT VOLUME 8.5 fl (7.5-11.1); NEUTROPHILS 78.1 % (42.8-82.8); PLATELET COUNT 262 K/MM3 (134-434); RDW 14.3 % (11.6-15.6); WHITE BLOOD COUNT 7.7 K/mm3 (4.0-10.0)
[2016-10-02 16:58] LABS: TROPONIN I < 0.02 ng/ml (0.00-0.05)
[2016-10-02 18:34] LABS: ALBUMIN 3.7 g/dl (3.4-5.0); ALK PHOS 79 U/L (45-117); ANION GAP 8 (8-16); BILIRUBIN,TOTAL 0.2 mg/dL (0.2-1.0); CALCIUM 9.4 mg/dL (8.5-10.1); CO2 29 mmol/L (21-32); CREATININE 0.9 mg/dL (0.55-1.02); GLUCOSE,RANDOM 90 mg/dL (74-106); SGOT/AST 31 U/L (15-37); SGPT/ALT 47 U/L (12-78); TOT PROT 6.6 g/dl (6.4-8.2)
[2016-10-02 19:20] VITALS: BP 132/85; PULSE 60; TEMP 98.4
--- NOTE | 2016-10-03 14:50 | EKG ---
Test Reason : Blood Pressure : / mmHG Vent. Rate : 065 BPM Atrial Rate : 065 BPM P-R Int : 148 ms QRS Dur : 080 ms QT Int : 386 ms P-R-T Axes : 060 071 063 degrees QTc Int : 401 ms NORMAL SINUS RHYTHM NORMAL ECG WHEN COMPARED WITH ECG OF 25-JUL-2013 13:19, NO SIGNIFICANT CHANGE WAS FOUND Confirmed by GIL AHN MD ([id number]) on 10/03/2016 2:50:31 PM Referred By: Confirmed By:GIL AHN MD
== END 2016-10-02 19:21 | disposition home or self-care (01) ==
LOC: JER 15:03
DX: R00.2 Palpitations (principal)
CPT/HCPCS: 36415; 71010-TC; 80053; 82550; 84484; 84703; 85025; 93005; 93010; 99283-25

== ENCOUNTER → 2016-10-03 | Day surgery (SDC) | payer OTHER ==
[~2016-10-03] MED LIST: PICC LINE 8 ML FLUSH PROTOCOL IVPUSH PRN
== END | disposition home or self-care (01) ==
LOC: JRADIR 09:17
PROVIDERS: ATTEND Radiology Diagnostic Radiology
PROC: 02PY33Z Removal of Infusion Device from Great Vessel, Percutaneous Approach (ICD-10-PCS; principal; 2016-10-03)
PROC: 02HV33Z Insertion of Infusion Device into Superior Vena Cava, Percutaneous Approach (ICD-10-PCS; 2016-10-03)
PROC: B518ZZA Fluoroscopy of Superior Vena Cava, Guidance (ICD-10-PCS; 2016-10-03)
DX: T82.898A Other specified complication of vascular prosthetic devices, implants and grafts, initial encounter (principal)
CPT/HCPCS: 36569; 77001-TC; C1751

== ENCOUNTER 2017-04-12 17:10 | Emergency (ER) | payer OTHER ==
--- NOTE | 2017-04-12 17:22 | PDOC ---
History of Present Illness - General Chief Complaint: Urinary Problem Stated Complaint: KIDNEY INFECTION Time Seen by Provider: 04/12/17 17:21 Past History - Past Medical History Allergies/Adverse Reactions: Allergies Allergy/AdvReac Type Severity Reaction Status Date / Time No Known Allergies Allergy Verified 04/12/17 17:18 Home Medications: Ambulatory Orders Bupropion HCl [Wellbutrin Xl -] 300 mg PO DAILY #0 tab 07/28/13 Ropinirole HCl [Requip -] 1 mg PO HS #0 tablet 07/28/13 Sertraline HCl [Zoloft -] 100 mg PO DAILY #0 tablet 07/28/13 Alprazolam [Xanax] 0.25 mg PO BID 09/26/16 Atorvastatin Ca [Lipitor] 40 mg PO HS 09/26/16 Fingolimod HCl [Gilenya] 0.5 mg PO DAILY 09/26/16 Gabapentin [Neurontin -] 600 mg PO HS 09/26/16 Zolpidem Tartrate [Ambien] 10 mg PO HS 09/26/16 Baclofen [Lioresal -] 20 mg PO BID 10/02/16 Cholecalciferol (Vitamin D3) [Vitamin D3] 1,000 unit PO DAILY 04/12/17 Gabapentin [Neurontin] 300 mg PO DAILY 04/12/17 Ibuprofen 800 mg PO TID PRN 04/12/17 Oxycodone HCl/Acetaminophen [Percocet 10-325 mg Tablet] 1 each PO Q4H PRN Propranolol HCl 10 mg PO Q8H 04/12/17 GI Disorders: Yes (NEUROGENIC BLADDER. STRAIGHT CATHS.) Hypercholesterolemia: Yes - Suicide/Smoking/Psychosocial Hx Smoking History: Never smoked Number of Cigarettes Smoked Daily: 2 'Breaking Loose' booklet given: 03/20/13 Hx Alcohol Use: Yes (SOCIAL) Drug/Substance Use Hx: No Substance Use Type: None Hx Substance Use Treatment: No ED Treatment Course - LABORATORY CBC & Chemistry Diagram: 04/12/17 17:50 04/12/17 17:50 Medical Decision Making - Medical Decision Making 04/12/17 18:05 47 years old history of MS high cholesterol presents to the ED with several day history of subjective fevers chills lethargy nausea. Similar presentation in September with urinary tract infection sent to the emergency department by primary care provider for admission sepsis workup and treatment for likely pyelonephritis. On examination in addition to right-sided flank discomfort patient with right upper quadrant pain In addition to a renal bladder ultrasound we will also order a right upper quadrant ultrasound Dr. Guillen to follow-up labs ultrasound image order antibiotics reassess and admit patient. *DC/Admit/Observation/Transfer Diagnosis at time of Disposition: Fever - Discharge Dispostion Condition at time of disposition: Good - Referrals Referrals: Tammy Contreras MD [Primary Care Provider] - - Patient Instructions - Post Discharge Activity
[2017-04-12 17:41] VITALS: BP 133/87; PULSE 83; TEMP 99.2; BMI 24.2
[2017-04-12] MEDS ORDERED: SODIUM CHLORIDE 0.9% 1000 ML INFUS.BAG IV ONE (17:41)
[2017-04-12 17:44] LABS: PH,URINE 5.5 (4.5-8); URINE APPEARANCE Clear; URINE BILIRUBIN Negative (NEGATIVE); URINE BLOOD Negative (NEGATIVE); URINE COLOR YELLOW; URINE GLUCOSE (UA) Negative (NEGATIVE); URINE KETONE Negative (NEGATIVE); URINE LEUK ESTERASE Negative (NEGATIVE); URINE NITRITE Negative (NEGATIVE); URINE PROTEIN Negative (NEGATIVE); URINE UROBILINOGEN 0.2 (0.2-1.0)
[2017-04-12] MEDS ORDERED: morphine CARPU-JECT 4 MG/1 ML DISP.SYRIN IVPUSH ONE (18:01)
[2017-04-12] MEDS ORDERED: morphine SULFATE 4 MG/ML VIAL ONE (18:06)
[2017-04-12 18:07] LABS: BASO % 0.9 % (0-2.0); EOS % 2.2 % (0-4.5); HEMATOCRIT 38.7 % (32.4-45.2); HEMOGLOBIN 13.2 GM/dl (10.7-15.3); LYMPH % 15.4 % (8-40); MCH 29.3 pg (25.7-33.7); MCHC 34.1 g/dl (32.0-36.0); MEAN CELL VOLUME 85.7 fl (80-96); MEAN PLT VOLUME 9.9 fl (7.5-11.1); MONO % 7.5 % (3.8-10.2); PLATELET COUNT 199 K/MM3 (134-434); RBC 4.52 M/mm3 (3.60-5.2); RDW 12.1 % (11.6-15.6); WHITE BLOOD COUNT 6.8 K/mm3 (4.0-10.8)
[2017-04-12 18:28] LABS: ALBUMIN 4.4 g/dl (3.5-5.0); ALK PHOS 65 U/L (32-92); ANION GAP 4 (8-16); BILIRUBIN,TOTAL 0.4 mg/dl (0.2-1.0); BLOOD UREA NITROGEN 25 mg/dl (7-18); CALCIUM 9.4 mg/dl (8.4-10.2); CHLORIDE 106 mmol/L (98-107); CO2 29 mmol/L (22-28); CREATININE 0.9 mg/dl (0.6-1.3); GLUCOSE,RANDOM 94 mg/dl (74-106); SGOT/AST 27 U/L (10-42); SGPT/ALT 31 U/L (10-40); SODIUM 139 mmol/L (136-145); TOT PROT 6.8 g/dl (6.4-8.3)
[2017-04-12 18:33] LABS: INR 0.86 (0.82-1.09); PROTHROMBIN TIME (PATIENT) 9.6 SEC (10.2-13.0)
[2017-04-12 18:40] LABS: ACTIVATED PTT 29.2 SECONDS (24.0-38.9)
--- NOTE | 2017-04-12 19:03 | PDOC ---
History of Present Illness - General History Source: Patient Exam Limitations: No Limitations - History of Present Illness Initial Comments: 04/12/17 19:03 The patient is a 47 year old female with past medical history hyperlipidemia, relapsing remitting multiple sclerosis (generalized presentation with roughly biannual flare ups),and neurogenic bladder (supposed to self catheterize) who presents to the ED with complaints of flank pain for the past few days. She reports bilateral flank pain, right worse than left, and radiating to her right upper quadrant. She reports also associated dysuria, urgency, headache, fatigue , and body aches but denies fevers. She reports treating her symptoms with Tylenol and receiving minimal relief. The patient was at her nephrologists today and was advised to come to the ED to rule out pyelonephritis. She reports having pyelo in August. She reports nausea, but denies any vomiting, diarrhea, or melena. She denies any cough, shortness of breath, chest pain, or any other urinary complaints. Patient reports self cathing herself and sent her urine for culture yesterday. She reports social drinking and daily cigarette smoking. She denies any drug use. Autobody Technician; Dr. Tammy Purcell <Hortensia Quinones - Last Filed: 04/12/17 19:03> <Marshall Guillen - Last Filed: 04/13/17 02:42> - General Chief Complaint: Urinary Problem Stated Complaint: KIDNEY INFECTION Time Seen by Provider: 04/12/17 17:21 Past History <Hortensia Quinones - Last Filed: 04/12/17 19:03> - Past Medical History COPD: No GI Disorders: Yes (NEUROGENIC BLADDER. STRAIGHT CATHS.) Hypercholesterolemia: Yes Other medical history: MULTIPLE SCLEROSIS - Suicide/Smoking/Psychosocial Hx Smoking History: Never smoked Number of Cigarettes Smoked Daily: 2 Information on smoking cessation initiated: Yes 'Breaking Loose' booklet given: 03/20/13 Hx Alcohol Use: Yes (SOCIAL) Drug/Substance Use Hx: No Substance Use Type: None Hx Substance Use Treatment: No <Marshall Guillen - Last Filed: 04/13/17 02:42> - Past Medical History Allergies/Adverse Reactions: Allergies Allergy/AdvReac Type Severity Reaction Status Date / Time No Known Allergies Allergy Verified 04/12/17 17:18 Home Medications: Ambulatory Orders Bupropion HCl [Wellbutrin Xl -] 300 mg PO DAILY #0 tab 07/28/13 Ropinirole HCl [Requip -] 1 mg PO HS #0 tablet 07/28/13 Sertraline HCl [Zoloft -] 100 mg PO DAILY #0 tablet 07/28/13 Alprazolam [Xanax] 0.25 mg PO BID 09/26/16 Atorvastatin Ca [Lipitor] 40 mg PO HS 09/26/16 Fingolimod HCl [Gilenya] 0.5 mg PO DAILY 09/26/16 Gabapentin [Neurontin -] 600 mg PO HS 09/26/16 Zolpidem Tartrate [Ambien] 10 mg PO HS 09/26/16 Baclofen [Lioresal -] 20 mg PO BID 10/02/16 Cholecalciferol (Vitamin D3) [Vitamin D3] 1,000 unit PO DAILY 04/12/17 Docusate Sodium [Colace] 100 mg PO TID #30 capsule 04/12/17 Gabapentin [Neurontin] 300 mg PO DAILY 04/12/17 Ibuprofen 800 mg PO TID PRN 04/12/17 Oxycodone HCl/Acetaminophen [Percocet 10-325 mg Tablet] 1 each PO Q4H PRN Oxycodone HCl/Acetaminophen [Percocet 5-325 mg Tablet] 2 tab PO Q6H PRN #20 tablet MDD 8 tabs 04/12/17 Propranolol HCl 10 mg PO Q8H 04/12/17 Review of Systems - Review of Systems Able to Perform ROS?: Yes Comments:: 04/12/17 19:04 A complete review of 10 out of 10 review of systems is taken and is negative apart from what is previously mentioned below and in the HPI. All Other Systems: Reviewed and Negative <Hortensia Quinones - Last Filed: 04/12/17 19:03> *Physical Exam - Vital Signs Last Vital Signs Temp Pulse Resp BP Pulse Ox 99.2 F 83 15 133/87 97 04/12/17 17:18 04/12/17 17:18 04/12/17 17:18 04/12/17 17:18 04/12/17 17:18 - Physical Exam Comments: 04/12/17 19:05 General Appearance: no acute distress, well nourished well developed, Head: Atraumatic, normocephalic Neck: Supple;No Nuchal rigidity Cardiac: Regular rate and rhythm, no murmurs, no rubs, no gallops, Lungs: Clear to auscultation bilateral, good air movement bilaterally, Abdomen: RUQ tenderness on palpation. Bilateral CVA tenderness on palpation. Soft, nondistended, normal bowel sounds Extremities: Full range of motion to all extremities, no cyanosis, clubbing, or edema Skin: Warm and dry, no rashes or lesions, no petechiae Neuro: AOX3; Cranial Nerves 2-12 grossly c intact, Strength intact to all extremities, Sensation intact to all extremities, gait normal <Hortensia Quinones - Last Filed: 04/12/17 19:03> - Vital Signs Last Vital Signs Temp Pulse Resp BP Pulse Ox 99.2 F 83 15 133/87 97 04/12/17 17:18 04/12/17 17:18 04/12/17 17:18 04/12/17 17:18 04/12/17 17:18 <Marshall Guillen - Last Filed: 04/13/17 02:42> ED Treatment Course - LABORATORY CBC & Chemistry Diagram: 04/12/17 17:50 04/12/17 17:50 - ADDITIONAL ORDERS Additional order review: Laboratory Results 04/12/17 04/12/17 04/12/17 17:50 17:50 17:30 PT with INR 9.6 L INR 0.86 L PTT (Actin FS) 29.2 Sodium 139 Potassium 4.0 Chloride 106 Carbon Dioxide 29 H Anion Gap 4 L BUN 25 H Creatinine 0.9 Creat Clearance w eGFR > 60 Random Glucose 94 Calcium 9.4 Total Bilirubin 0.4 AST 27 ALT 31 Alkaline Phosphatase 65 Total Protein 6.8 Albumin 4.4 Urine Color Yellow Urine Appearance Clear Urine pH 5.5 Ur Specific [place] >= 1.030 H Urine Protein Negative Urine Glucose (UA) Negative Urine Ketones Negative Urine Blood Negative Urine Nitrite Negative Urine Bilirubin Negative Urine Urobilinogen 0.2 Ur Leukocyte Esterase Negative 04/12/17 17:50 RBC 4.52 MCV 85.7 MCHC 34.1 RDW 12.1 MPV 9.9 Neutrophils % 74.0 Lymphocytes % 15.4 Monocytes % 7.5 Eosinophils % 2.2 Basophils % 0.9 - Medications Given in the ED: ED Medications Discontinued Medications Generic Name Dose Route Start Last Admin Trade Name Freq PRN Reason Stop Dose Admin Morphine Sulfate 4 mg 04/12/17 18:01 04/12/17 18:10 Morphine Injection - IVPUSH 04/12/17 18:02 4 mg ONCE ONE Administration Sodium Chloride 1,000 ml 04/12/17 17:41 04/12/17 17:59 Normal Saline - IV 04/12/17 17:42 1,000 ml ONCE ONE Administration <Hortensia Quinones - Last Filed: 04/12/17 19:03> - LABORATORY CBC & Chemistry Diagram: 04/12/17 17:50 04/12/17 17:50 - ADDITIONAL ORDERS Additional order review: Laboratory Results 04/12/17 04/12/17 04/12/17 17:50 17:50 17:30 PT with INR 9.6 L INR 0.86 L PTT (Actin FS) 29.2 Sodium 139 Potassium 4.0 Chloride 106 Carbon Dioxide 29 H Anion Gap 4 L BUN 25 H Creatinine 0.9 Creat Clearance w eGFR > 60 Random Glucose 94 Calcium 9.4 Total Bilirubin 0.4 AST 27 ALT 31 Alkaline Phosphatase 65 Total Protein 6.8 Albumin 4.4 Urine Color Yellow Urine Appearance Clear Urine pH 5.5 Ur Specific [place] >= 1.030 H Urine Protein Negative Urine Glucose (UA) Negative Urine Ketones Negative Urine Blood Negative Urine Nitrite Negative Urine Bilirubin Negative Urine Urobilinogen 0.2 Ur Leukocyte Esterase Negative 04/12/17 17:50 RBC 4.52 MCV 85.7 MCHC 34.1 RDW 12.1 MPV 9.9 Neutrophils % 74.0 Lymphocytes % 15.4 Monocytes % 7.5 Eosinophils % 2.2 Basophils % 0.9 - Medications Given in the ED: ED Medications Discontinued Medications Generic Name Dose Route Start Last Admin Trade Name Gm PRN Reason Stop Dose Admin Morphine Sulfate 4 mg 04/12/17 18:01 04/12/17 18:10 Morphine Injection - IVPUSH 04/12/17 18:02 4 mg ONCE ONE Administration Sodium Chloride 1,000 ml 04/12/17 17:41 04/12/17 17:59 Normal Saline - IV 04/12/17 17:42 1,000 ml ONCE ONE Administration <Marshall Guillen - Last Filed: 04/13/17 02:42> Medical Decision Making - Medical Decision Making 04/13/17 02:41 ED escobar only remarkable for prerenal azotemia d/w PCP--agrees with IVF and dc home ucx pending <Marshall Guillen - Last Filed: 04/13/17 02:42> *DC/Admit/Observation/Transfer - Attestations Scribe Attestion: 04/12/17 19:06 Documentation prepared by Hortensia Quinones, acting as medical reimbursement specialist for Lane Barker MD. <Hortensia Quinones - Last Filed: 04/12/17 19:03> <Marshall Guillen - Last Filed: 04/13/17 02:42> Diagnosis at time of Disposition: Dehydration - Discharge Dispostion Disposition: HOME Condition at time of disposition: Good - Prescriptions Prescriptions: Docusate Sodium [Colace] 100 mg PO TID #30 capsule Oxycodone HCl/Acetaminophen [Percocet 5-325 mg Tablet] 2 tab PO Q6H PRN #20 tablet MDD 8 tabs PRN Reason: Pain - Referrals Referrals: Tammy Contreras MD [Primary Care Provider] - 2 Days - Patient Instructions Printed Discharge Instructions: DI for Dehydration -- Adult - Post Discharge Activity
== END 2017-04-12 21:00 | disposition home or self-care (01) ==
LOC: FER 17:10
PROC: 3E033NZ Introduction of Analgesics, Hypnotics, Sedatives into Peripheral Vein, Percutaneous Approach (ICD-10-PCS; principal; 2017-04-12)
PROC: 3E0337Z Introduction of Electrolytic and Water Balance Substance into Peripheral Vein, Percutaneous Approach (ICD-10-PCS; 2017-04-12)
DX: R50.9 Fever, unspecified (principal)
CPT/HCPCS: 36415; 71045-TC; 76705-TC; 76775-TC; 80053; 81003; 83605; 85025; 85610; 85730; 86850; 86900; 86901; 87040; 87086; 99282-25

== ENCOUNTER 2017-04-14 13:11 | Observation (INO) | payer OTHER ==
[2017-04-14 13:17] VITALS: BMI 24.2
[2017-04-14] MEDS ORDERED: ACETAMINOPHEN 325 MG TABLET (FP) PO ONE (14:50)
[2017-04-14] MEDS ORDERED: METOCLOPRAMIDE HCL INJECTION 10 MG/2 ML VIAL IVPUSH ONE (14:50)
[2017-04-14] MEDS ORDERED: SODIUM CHLORIDE 500 ML IV STA (14:50)
--- NOTE | 2017-04-14 14:55 | PDOC ---
History of Present Illness - General Chief Complaint: Pain Stated Complaint: LETHARGIC, BACK PAIN Time Seen by Provider: 04/14/17 14:24 History Source: Patient, Family Exam Limitations: No Limitations - History of Present Illness Initial Comments: This is a 47 YOF with h/o MS c/b neurogenic bladder (urinates on her own but also self-caths three times/day), kidney stones, and recurrent UTI (admitted for her last UTI in September 2016) who presents with R>L flank pain, suprapubic pain , and RLQ>LLQ abdominal pain and foul-smelling urine for the past week. She states that this feels similar to her prior UTIs. Her beef splitter (Dr. Flynn) called ahead to notify the ED of the patient's symptoms and of high probability she will need admission to hospitalists. She was seen at [place] for the same symptoms two days ago, had a negative UA and US, and was treated for dehydration. She additionally notes episodes of irregular pounding palpitations for the past two weeks, one episode of fainting last week, increased fatigue, and nausea. Past History - Past Medical History Allergies/Adverse Reactions: Allergies Allergy/AdvReac Type Severity Reaction Status Date / Time No Known Allergies Allergy Verified 04/14/17 13:14 Home Medications: Ambulatory Orders Bupropion HCl [Wellbutrin Xl -] 300 mg PO DAILY #0 tab 07/28/13 Ropinirole HCl [Requip -] 1 mg PO HS #0 tablet 07/28/13 Sertraline HCl [Zoloft -] 100 mg PO DAILY #0 tablet 07/28/13 Alprazolam [Xanax] 0.25 mg PO BID 09/26/16 Atorvastatin Ca [Lipitor] 40 mg PO HS 09/26/16 Fingolimod HCl [Gilenya] 0.5 mg PO DAILY 09/26/16 Gabapentin [Neurontin -] 600 mg PO HS 09/26/16 Zolpidem Tartrate [Ambien] 10 mg PO HS 09/26/16 Baclofen [Lioresal -] 20 mg PO BID 10/02/16 Cholecalciferol (Vitamin D3) [Vitamin D3] 1,000 unit PO DAILY 04/12/17 Docusate Sodium [Colace] 100 mg PO TID #30 capsule 04/12/17 Gabapentin [Neurontin] 300 mg PO DAILY 04/12/17 Ibuprofen 800 mg PO TID PRN 04/12/17 Oxycodone HCl/Acetaminophen [Percocet 10-325 mg Tablet] 1 each PO Q4H PRN Propranolol HCl 10 mg PO Q8H 04/12/17 COPD: No GI Disorders: Yes (NEUROGENIC BLADDER. STRAIGHT CATHS.) Hypercholesterolemia: Yes Other medical history: MS. - Suicide/Smoking/Psychosocial Hx Smoking History: Never smoked Number of Cigarettes Smoked Daily: 2 'Breaking Loose' booklet given: 03/20/13 Hx Alcohol Use: No Drug/Substance Use Hx: No Substance Use Type: None Hx Substance Use Treatment: No Review of Systems - Review of Systems Able to Perform ROS?: Yes Constitutional: Yes: Other (fatigue). No: Chills, Fever, Unexplained wgt Loss HEENTM: No: Nose Congestion, Throat Pain Respiratory: No: Cough, Shortness of Breath Cardiac (ROS): Yes: Palpitations, Syncope (last week). No: Chest Pain ABD/GI: Yes: Nausea, Other (abdominal pain, flank pain). No: Constipated, Diarrhea, Vomiting : Yes: Flank Pain, Other (foul smelling urine). No: Burning, Dysuria Musculoskeletal: No: Back Pain, Neck Pain Integumentary: No: Bruising, Rash Neurological: No: Headache, Numbness, Tingling, Weakness, Dizziness Endocrine: No: Unexplained Weight Gain, Unexplained Weight Loss *Physical Exam - Vital Signs Last Vital Signs Temp Pulse Resp BP Pulse Ox 99.2 F 90 18 117/68 99 04/14/17 13:14 04/14/17 13:14 04/14/17 13:14 04/14/17 13:14 04/14/17 13:14 - Physical Exam General Appearance: Yes: Nourished, Appropriately Dressed, Other (well appearing adult female accompanied by her family members, answers questions appropriately, appears relatively comfortable while resting but winces a bit when changing position). No: Apparent Distress HEENT: positive: EOMI, Normal Voice, Hearing Grossly Normal. negative: Scleral Icterus (R), Scleral Icterus (L), Nasal Congestion Neck: positive: Trachea midline, Supple. negative: Tender, Rigid Respiratory/Chest: positive: Lungs Clear, Normal Breath Sounds. negative: Respiratory Distress, Labored Respiration, Crackles, Rhonchi, Stridor, Wheezing Cardiovascular: positive: Regular Rhythm, Regular Rate, S1, S2. negative: Edema , JVD, Murmur Gastrointestinal/Abdominal: positive: Normal Bowel Sounds, Tender (RLQ>LLQ ttp which are both mild, mild suprapubic ttp), Soft. negative: Organomegaly, Pulsatile Mass, Guarding Musculoskeletal: positive: Normal Inspection, CVA Tenderness (R). negative: CVA Tenderness (L), Decreased Range of Motion, Vertebral Tenderness Extremity: positive: Normal Capillary Refill, Normal Inspection, Normal Range of Motion. negative: Tender, Cyanosis Integumentary: positive: Normal Color, Dry, Warm. negative: Erythema, Rash, Bruising Neurologic: positive: group work program aide II-XII NML intact (grossly), Fully Oriented, Alert, Normal Mood/Affect, Normal Response, Motor Strength 5/5, Finger to Nose (normal) , Other (no truncal ataxia). negative: EOM Palsy, Facial Droop, Numbness, Sensory Deficit, Confused, Disoriented ED Treatment Course - LABORATORY CBC & Chemistry Diagram: 04/14/17 15:00 04/14/17 15:00 Medical Decision Making - Medical Decision Making 04/14/17 16:25 Lab results negative except 12 WBC in UA. IV ceftriaxone ordered. CT abdomen/pelvis with IV contrast ordered. 04/14/17 17:07 Patient had continued pain despite #2 Percocet. Blood pressure rechecked to be 105 systolic and 2 mg Morphine IVPUSH given. *DC/Admit/Observation/Transfer Diagnosis at time of Disposition: Multiple sclerosis, Neurogenic bladder, Intractable abdominal pain UTI (urinary tract infection) Qualifiers: Urinary tract infection type: site unspecified Hematuria presence: without hematuria Qualified Code(s): N39.0 - Urinary tract infection, site not specified - Discharge Dispostion Condition at time of disposition: Guarded Admit: Yes - Referrals Referrals: Tammy Cnotreras MD [Primary Care Provider] - - Patient Instructions - Post Discharge Activity
[2017-04-14] MEDS ORDERED: METOCLOPRAMIDE HCL INJECTION 10 MG/2 ML VIAL ONE (15:06)
[2017-04-14] MEDS ORDERED: SODIUM CHLORIDE 1,000 ML IV STA (15:08)
[2017-04-14 15:10] LABS: BASO % 0.5 % (0-2.0); EOS % 3.8 % (0-4.5); HEMATOCRIT 36.3 % (32.4-45.2); HEMOGLOBIN 12.2 GM/dL (10.7-15.3); LYMPH % 26.3 % (8-40); MCH 28.3 pg (25.7-33.7); MCHC 33.5 g/dl (32.0-36.0); MEAN CELL VOLUME 84.6 fl (80-96); MEAN PLT VOLUME 9.4 fl (7.5-11.1); NEUT % 60.4 % (42.8-82.8); PLATELET COUNT 178 K/MM3 (134-434); RDW 13.1 % (11.6-15.6); WHITE BLOOD COUNT 4.3 K/mm3 (4.0-10.0)
[2017-04-14 15:14] LABS: URINE APPEARANCE CLEAR; URINE BILIRUBIN NEGATIVE (NEGATIVE); URINE BLOOD NEGATIVE (NEGATIVE); URINE COLOR YELLOW; URINE GLUCOSE (UA) NEGATIVE (NEGATIVE); URINE KETONE NEGATIVE (NEGATIVE); URINE LEUK ESTERASE TRACE (NEGATIVE); URINE NITRITE NEGATIVE (NEGATIVE); URINE PROTEIN NEGATIVE (NEGATIVE); URINE UROBILINOGEN NEGATIVE mg/dL (0.2-1.0)
[2017-04-14 15:19] LABS: INR 0.86 (0.82-1.09); PROTHROMBIN TIME (PATIENT) 9.7 SEC (9.98-11.88)
[2017-04-14 15:33] LABS: ALBUMIN 3.9 g/dl (3.4-5.0); ANION GAP 6 (8-16); BILIRUBIN,TOTAL 0.2 mg/dL (0.2-1.0); BLOOD UREA NITROGEN 17 mg/dL (7-18); CALCIUM 9.1 mg/dL (8.5-10.1); CHLORIDE 104 mmol/L (98-107); CO2 33 mmol/L (21-32); CREATININE 0.8 mg/dL (0.55-1.02); GLUCOSE,RANDOM 88 mg/dL (74-106); LIPASE 142 U/L (73-393); POTASSIUM 3.9 mmol/L (3.5-5.1); SGOT/AST 27 U/L (15-37); SGPT/ALT 36 U/L (12-78); SODIUM 143 mmol/L (136-145); TOT PROT 6.6 g/dl (6.4-8.2)
[2017-04-14 15:36] LABS: ALK PHOS 70 U/L (45-117)
[2017-04-14] MEDS ORDERED: CEFTRIAXONE 1 GM in DEXTROSE 5%-WATER - 50 ML IVPB ONE (16:26)
[2017-04-14] MEDS ORDERED: CEFTRIAXONE 2 GM/100 ML BAG IVPB ONE (16:45)
[2017-04-14] MEDS ORDERED: MORPHINE SULFATE 10 MG/1 ML *VIAL ONE ×2 (16:46→20:34)
[2017-04-14] MEDS ORDERED: morphine CARPU-JECT 4 MG/1 ML DISP.SYRIN IVPUSH ONE ×2 (16:49→20:33)
--- NOTE | 2017-04-14 18:14 | PDOC ---
Attending Attestation - Resident Resident Name: Laurie Khan - ED Attending Attestation I have performed the following: I have examined & evaluated the patient, The case was reviewed & discussed with the resident, I agree w/resident's findings & plan, Exceptions are as noted - HPI HPI: 04/14/17 18:08 The patient is a 47 year old female, with a significant past medical history of MS, frequent UTIs, kidney stones and neurogenic bladder (urinates on her own but also self-caths three times/day), who presents to the emergency department after being sent to the ED by Dr Drake Flynn for bilateral abdominal pain, bilateral flank pain and foul smelling urine. She reports that her abdominal pain ranges from mild to moderate, localized in the lower abdominal regions bilaterally, with the right side worse than the left. She describes her flank pain as bilateral, ranging from mild to moderate, without radiation or modifying factors. She also report palpitations associated with her chief complaint and notes that she had a fainting episode last week. The patient was seen in the ED 2 days ago for similar symptoms and had an ultrasound that was negative and a urine analysis that was negative. The patient denies chest pain, shortness of breath, headache and dizziness. Allergies: None Past surgical history: None reported Social history: No alcohol, tobacco or drug use reported - Physicial Exam PE: 04/14/17 18:14 GENERAL: Awake, alert, and fully oriented, in no acute distress HEAD: No signs of trauma, normocephalic, atraumatic EYES: PERRLA, EOMI, sclera anicteric, conjunctiva clear ENT: Auricles normal inspection, hearing grossly normal, nares patent, oropharynx clear without exudates. Moist mucosa NECK: Normal ROM, supple, no lymphadenopathy, JVD, or masses LUNGS: No distress, speaks full sentences, clear to auscultation bilaterally HEART: Regular rate and rhythm, normal S1 and S2, no murmurs, rubs or gallops, peripheral pulses normal and equal bilaterally. ABDOMEN: Soft, diffuse abd ttp, worse in the RLQ and periumbilical area, normoactive bowel sounds. No guarding, no rebound. No masses EXTREMITIES : Normal inspection, Normal range of motion, no edema. No clubbing or cyanosis. NEUROLOGICAL: Cranial nerves II through XII grossly intact. Normal speech, normal gait, no focal sensorimotor deficits SKIN: Warm, Dry, normal turgor, no rashes or lesions noted. - Medical Decision Making 04/14/17 18:15 47-year-old female with a history of MS complicated by neurogenic bladder requiring intermittent self-catheterization, recurrent UTIs presents emergency Department with persistent abdominal pain. Vitals unremarkable. Exam with tenderness palpation to the abdomen diffusely, worse in the right lower quadrant /periumbilical areas. UA is thus far remarkable for 12 wbc's and trace leukoesterase, which is likely consistent with UTI as this was a catheterized specimen. Given patient has presented to the emergency department for the second time in 3 days and due to diffuse abdominal tenderness palpation, we'll obtain a CT scan of the abdomen and pelvis. Patient will likely require admission to the hospital as she has required Percocet and morphine for pain control. Patient is pending CT scan currently has been signed out to Dr. Gao for further management and disposition.
--- NOTE | 2017-04-14 18:21 | PDOC ---
*Physical Exam - Vital Signs Last Vital Signs Temp Pulse Resp BP Pulse Ox 99.2 F 78 18 105/69 98 04/14/17 13:14 04/14/17 16:52 04/14/17 16:52 04/14/17 16:52 04/14/17 16:52 ED Treatment Course - LABORATORY CBC & Chemistry Diagram: 04/15/17 07:42 04/15/17 07:42 - ADDITIONAL ORDERS Additional order review: Laboratory Results 04/14/17 04/14/17 04/14/17 15:15 15:00 15:00 PT with INR INR Sodium Potassium Chloride Carbon Dioxide Anion Gap BUN Creatinine Creat Clearance w eGFR Random Glucose Lactic Acid 0.9 Calcium Total Bilirubin AST ALT Alkaline Phosphatase Creatine Kinase Cancelled Troponin I Cancelled Total Protein Albumin Lipase Urine Color Urine Appearance Urine pH Ur Specific [place] Urine Protein Urine Glucose (UA) Urine Ketones Urine Blood Urine Nitrite Urine Bilirubin Urine Urobilinogen Ur Leukocyte Esterase Urine WBC (Auto) Urine RBC (Auto) Blood Type B NEGATIVE Antibody Screen Negative 04/14/17 04/14/17 04/14/17 15:00 15:00 14:50 PT with INR 9.70 L INR 0.86 Sodium 143 Potassium 3.9 Chloride 104 Carbon Dioxide 33 H Anion Gap 6 L BUN 17 Creatinine 0.8 Creat Clearance w eGFR > 60 Random Glucose 88 Lactic Acid Calcium 9.1 Total Bilirubin 0.2 AST 27 ALT 36 Alkaline Phosphatase 70 Creatine Kinase 57 Troponin I < 0.02 Total Protein 6.6 Albumin 3.9 Lipase 142 Urine Color Yellow Urine Appearance Clear Urine pH 5.0 Ur Specific [place] 1.015 Urine Protein Negative Urine Glucose (UA) Negative Urine Ketones Negative Urine Blood Negative Urine Nitrite Negative Urine Bilirubin Negative Urine Urobilinogen Negative Ur Leukocyte Esterase Trace Urine WBC (Auto) 12 Urine RBC (Auto) <1 Blood Type Antibody Screen 04/14/17 15:00 RBC 4.30 MCV 84.6 MCHC 33.5 RDW 13.1 MPV 9.4 D Neutrophils % 60.4 D Lymphocytes % 26.3 D Monocytes % 9.0 Eosinophils % 3.8 D Basophils % 0.5 - Medications Given in the ED: ED Medications Discontinued Medications Generic Name Dose Route Start Last Admin Trade Name Freq PRN Reason Stop Dose Admin Acetaminophen 975 mg 04/14/17 14:50 04/14/17 15:38 Tylenol - PO 04/14/17 14:51 Not Given ONCE ONE Sodium Chloride 500 mls @ 500 mls/hr 04/14/17 14:50 04/14/17 15:37 Normal Saline - IV 04/14/17 15:49 Not Given ASDIR STA Sodium Chloride 1,000 mls @ 1,000 mls/hr 04/14/17 15:08 04/14/17 15:26 Normal Saline - IV 04/14/17 16:07 1,000 mls/hr ASDIR STA Administration Ceftriaxone Sodium 1 gm/ 50 mls @ 100 mls/hr 04/14/17 16:26 04/14/17 16:52 Dextrose IVPB 04/14/17 16:55 100 mls/hr ONCE ONE Administration Metoclopramide HCl 10 mg 04/14/17 14:50 04/14/17 15:26 Reglan Injection - IVPUSH 04/14/17 14:51 10 mg ONCE ONE Administration Morphine Sulfate 2 mg 04/14/17 16:49 04/14/17 16:53 Morphine Injection - IVPUSH 04/14/17 16:50 2 mg ONCE ONE Administration Oxycodone/Acetaminophen 2 combo 04/14/17 15:25 04/14/17 15:35 Percocet 5/325 - PO 04/14/17 15:26 2 combo ONCE ONE Administration Medical Decision Making - Medical Decision Making 04/14/17 18:[address] scan [email or web address] for 47 yo female with flank pain requiring narcotic pain meds ct scan to r/o appendicitis. *DC/Admit/Observation/Transfer Diagnosis at time of Disposition: UTI (urinary tract infection), Multiple sclerosis, Neurogenic bladder, Intractable abdominal pain - Discharge Dispostion Disposition: HOME Condition at time of disposition: Good - Referrals - Patient Instructions - Post Discharge Activity
--- NOTE | 2017-04-14 22:13 | PN ---
Teaching Attending Note Name of Resident: Avelina Welsh ATTENDING PHYSICIAN STATEMENT I saw and evaluated the patient. I reviewed the resident's note and discussed the case with the resident. I agree with the resident's findings and plan as documented. SUBJECTIVE: 47 yo F with hx. of MS (neurogenic bladder/self caths), nephrolithiasism and recurrent UTIs, who presents with R>L flank pain, suprapubic pain, Malordorous urine, and R>LLQ abdominal pain, Was seen at [facility] two days ago for similar symptoms. States she had "low grade fevers" at home and has been having malaise. Denies any current chest pain or pressure. States she is nausous , denies any diarrhea. OBJECTIVE: Physical: VS: Vital Signs Period Temp Pulse Resp BP Sys/Marquez Pulse Ox Last 24 Hr 98.8 F-99.2 F 64-90 18-18 105-124/68-73 98-100 GEN: NAD, Resting in bed, AA0X3 HEENT: NCAT, PERRL, throat without erythema or exudates CARD: RRR S1, S2 RESP: CTAB ABD: BSx4, TTP arti-epigastric, R. Flank and RLQ EXT: - C/C/E CBCD WBC 4.3 K/mm3 (4.0-10.0) D 04/14/17 15:00 RBC 4.30 M/mm3 (3.60-5.2) 04/14/17 15:00 Hgb 12.2 GM/dL (10.7-15.3) 04/14/17 15:00 Hct 36.3 % (32.4-45.2) 04/14/17 15:00 MCV 84.6 fl (80-96) 04/14/17 15:00 MCHC 33.5 g/dl (32.0-36.0) 04/14/17 15:00 RDW 13.1 % (11.6-15.6) 04/14/17 15:00 Plt Count 178 K/MM3 (134-434) D 04/14/17 15:00 MPV 9.4 fl (7.5-11.1) D 04/14/17 15:00 CMP Sodium 143 mmol/L (136-145) 04/14/17 15:00 Potassium 3.9 mmol/L (3.5-5.1) 04/14/17 15:00 Chloride 104 mmol/L (98-107) 04/14/17 15:00 Carbon Dioxide 33 mmol/L (21-32) H 04/14/17 15:00 Anion Gap 6 (8-16) L 04/14/17 15:00 BUN 17 mg/dL (7-18) 04/14/17 15:00 Creatinine 0.8 mg/dL (0.55-1.02) 04/14/17 15:00 Creat Clearance w eGFR > 60 (>60) 04/14/17 15:00 Random Glucose 88 mg/dL (74-106) 04/14/17 15:00 Calcium 9.1 mg/dL (8.5-10.1) 04/14/17 15:00 Total Bilirubin 0.2 mg/dL (0.2-1.0) 04/14/17 15:00 AST 27 U/L (15-37) 04/14/17 15:00 ALT 36 U/L (12-78) 04/14/17 15:00 Alkaline Phosphatase 70 U/L (45-117) 04/14/17 15:00 Total Protein 6.6 g/dl (6.4-8.2) 04/14/17 15:00 Albumin 3.9 g/dl (3.4-5.0) 04/14/17 15:00 CARDIAC ENZYMES Creatine Kinase 57 IU/L (26-192) 04/14/17 15:00 Troponin I < 0.02 ng/ml (0.00-0.05) 04/14/17 15:00 Urine Test Results Urine Color Yellow 04/14/17 14:50 Urine Appearance Clear 04/14/17 14:50 Urine pH 5.0 (5.0-8.0) 04/14/17 14:50 Ur Specific [place] 1.015 (1.001-1.035) 04/14/17 14:50 Urine Protein Negative (NEGATIVE) 04/14/17 14:50 Urine Glucose (UA) Negative (NEGATIVE) 04/14/17 14:50 Urine Ketones Negative (NEGATIVE) 04/14/17 14:50 Urine Blood Negative (NEGATIVE) 04/14/17 14:50 Urine Nitrite Negative (NEGATIVE) 04/14/17 14:50 Urine Bilirubin Negative (NEGATIVE) 04/14/17 14:50 Ur Leukocyte Esterase Trace (NEGATIVE) 04/14/17 14:50 Home Medications Medication Instructions Recorded Bupropion HCl [Wellbutrin Xl -] 300 mg PO DAILY #0 tab 07/28/13 Ropinirole HCl [Requip -] 1 mg PO HS #0 tablet 07/28/13 Sertraline HCl [Zoloft -] 100 mg PO DAILY #0 tablet 07/28/13 Alprazolam [Xanax] 0.25 mg PO BID 09/26/16 Atorvastatin Ca [Lipitor] 40 mg PO HS 09/26/16 Fingolimod HCl [Gilenya] 0.5 mg PO DAILY 09/26/16 Gabapentin [Neurontin -] 600 mg PO HS 09/26/16 Zolpidem Tartrate [Ambien] 10 mg PO HS 09/26/16 Baclofen [Lioresal -] 20 mg PO BID 10/02/16 Cholecalciferol (Vitamin D3) 1,000 unit PO DAILY 04/12/17 [Vitamin D3] Docusate Sodium [Colace] 100 mg PO TID #30 capsule 04/12/17 Gabapentin [Neurontin] 300 mg PO DAILY 04/12/17 Ibuprofen 800 mg PO TID PRN 04/12/17 Oxycodone HCl/Acetaminophen 1 each PO Q4H PRN 04/12/17 [Percocet 10-325 mg Tablet] Propranolol HCl 10 mg PO Q8H 04/12/17 CT ABD/PELVIS: No Evidence of acute intra- abdominal process, No evidence of bowel obstruction, Appendix is Not definately visualized, but NO evidence of inflammatory change ASSESSMENT AND PLAN: 47 yo F with hx. of MS (neurogenic bladder/self caths), nephrolithiasisand recurrent UTIs, who presents with flank pain and ordorous urine 1.) Pyelonephritis - Ucx - C/W Ceftriaxone - IVF - Pain Control 2.) MS - C/W Home meds 3.) DVt ppx - SDS Place in Obs
--- NOTE | 2017-04-14 23:05 | HP ---
CHIEF COMPLAINT: R sided suprapubic tenderness, b/l flank pain PCP: Dr. Tammy Purcell HISTORY OF PRESENT ILLNESS: 47 y/o F with PMH MS, HLD, frequent UTI's, nephrolithiasis, neurogenic bladder ( urinates on own, but is scheduled to self-cath 3x/day. Admits non-compliance with routine), recent admission for pyelonephritis with resistant Klebsiella, E.coli tx with cipro, rocephin via PICC line 10 day course, recent admission at [facility] (2 days prior) for dehydration, who presents to the ED with suprapubic tenderness and b/l flank pain for the past six days. As per patient, on Saturday , she developed R sided suprapubic tenderness. Pain was a 4/10, intermittent, and alternated between stabbing and dull sensations. Pain radiated to her flanks , bilaterally and had no alleviating or exacerbating factors. a/w increased sensation to urinate, however with decreased void volume and foul smelling odor. States that sx are similar to her last admission for UTI, pyelonephritis and includes MS flare up sx of numbness and tingling in her upper and lower extremities. Was referred to come to the ED by her PCP, Dr. Tammy Purcell. Pt also endorses mild temporal NAVA, subjective chills and fever, and periorbital edema over the past 2-3 days. Denies SOB, chest pain, or changes in bowel function. ER course was notable for: (1) Rocephin 1g x 1 (2) Reglan 10mg IVP x 1 (3) Morphine, perkoset (4) NS boluses (500ml, 1000ml) (5) UA: trace leuk esterase, WBCs 12 Recent Travel: none PAST MEDICAL HISTORY: MS, HLD, frequent UTI's, nephrolithiasis, neurogenic bladder (urinates on own, but is scheduled to self-cath 3x/day. Admits non- compliance with routine), recent admission for pyelonephritis with resistant Klebsiella, E.coli tx with cipro, rocephin via PICC line 10 day course, recent admission at [facility] (2 days prior) for dehydration PAST SURGICAL HISTORY: R ovarian dermoid cyst removal (1999), tonsillectomy ( childhood) Social History: Smoking: cigarettes- smokes 1-2 cigarettes occasionally with friends Alcohol: socially Drugs: denies Family History: mother- HTN, father- hx [place] Allergies No Known Allergies Allergy (Verified 04/14/17 13:14) HOME MEDICATIONS: Home Medications Medication Instructions Recorded Bupropion HCl [Wellbutrin Xl -] 300 mg PO DAILY #0 tab 07/28/13 Ropinirole HCl [Requip -] 1 mg PO HS #0 tablet 07/28/13 Sertraline HCl [Zoloft -] 100 mg PO DAILY #0 tablet 07/28/13 Alprazolam [Xanax] 0.25 mg PO BID 09/26/16 Atorvastatin Ca [Lipitor] 40 mg PO HS 09/26/16 Fingolimod HCl [Gilenya] 0.5 mg PO DAILY 09/26/16 Gabapentin [Neurontin -] 600 mg PO HS 09/26/16 Zolpidem Tartrate [Ambien] 10 mg PO HS 09/26/16 Baclofen [Lioresal -] 20 mg PO BID 10/02/16 Cholecalciferol (Vitamin D3) 1,000 unit PO DAILY 04/12/17 [Vitamin D3] Docusate Sodium [Colace] 100 mg PO TID #30 capsule 04/12/17 Gabapentin [Neurontin] 300 mg PO DAILY 04/12/17 Ibuprofen 800 mg PO TID PRN 04/12/17 Oxycodone HCl/Acetaminophen 1 each PO Q4H PRN 04/12/17 [Percocet 10-325 mg Tablet] Propranolol HCl 10 mg PO Q8H 04/12/17 REVIEW OF SYSTEMS CONSTITUTIONAL: Absent: fever, chills, diaphoresis, generalized weakness, malaise, loss of appetite, weight change HEENT: Absent: rhinorrhea, nasal congestion, throat pain, throat swelling, difficulty swallowing, mouth swelling, ear pain, eye pain, visual changes CARDIOVASCULAR: Absent: chest pain, syncope, palpitations, irregular heart rate, lightheadedness , peripheral edema RESPIRATORY: Absent: cough, shortness of breath, dyspnea with exertion, orthopnea, wheezing, stridor, hemoptysis GASTROINTESTINAL: +abdominal pain Absent: abdominal distension, nausea, vomiting, diarrhea, constipation, melena, hematochezia GENITOURINARY: +urinary urgency, flank pain Absent: dysuria, frequency, hesitancy, hematuria, genital pain MUSCULOSKELETAL: Absent: myalgia, arthralgia, joint swelling, back pain, neck pain SKIN: Absent: rash, itching, pallor HEMATOLOGIC/IMMUNOLOGIC: Absent: easy bleeding, easy bruising, lymphadenopathy, frequent infections ENDOCRINE: Absent: unexplained weight gain, unexplained weight loss, heat intolerance, cold intolerance NEUROLOGIC: +parasthesias Absent: headache, focal weakness, dizziness, unsteady gait, seizure, mental status changes, bladder or bowel incontinence PSYCHIATRIC: Absent: anxiety, depression, suicidal or homicidal ideation, hallucinations. PHYSICAL EXAMINATION Vital Signs - 24 hr 04/14/17 13:14 Temperature 99.2 F Pulse Rate 90 Pulse Rate [ Right Radial] Respiratory 18 Rate Blood Pressure 117/68 Blood Pressure [Left Arm] O2 Sat by Pulse 99 Oximetry (%) GENERAL: Resting comfortably in bed. Awake, alert, and fully oriented, in no acute distress. HEAD: Normal with no signs of trauma. EYES: Pupils equal, round and reactive to light, extraocular movements intact, sclera anicteric, conjunctiva clear. EARS, NOSE, THROAT: Ears normal, nares patent, oropharynx clear without exudates. Moist mucous membranes. NECK: Normal range of motion, supple LUNGS: Breath sounds equal, clear to auscultation bilaterally. No wheezes, and no crackles. No accessory muscle use. HEART: Regular rate and rhythm, normal S1 and S2 without murmur, rub or gallop. ABDOMEN: Soft, diffusely tender to palpation- in suprapubic region, not distended, normoactive bowel sounds, no guarding, no rebound, no masses. MUSCULOSKELETAL: Normal range of motion at all joints. No bony deformities or tenderness. CVA tenderness (R>L) LOWER EXTREMITIES: 2+ posterior tibial pulses, warm, well-perfused. No peripheral edema. NEUROLOGICAL: Cranial nerves II-XII intact. Laboratory Results 04/14/17 04/14/17 04/14/17 14:50 15:00 15:00 WBC 4.3 D RBC 4.30 Hgb 12.2 Hct 36.3 MCV 84.6 MCH 28.3 MCHC 33.5 RDW 13.1 Plt Count 178 D MPV 9.4 D Neutrophils % 60.4 D Lymphocytes % 26.3 D Monocytes % 9.0 Eosinophils % 3.8 D Basophils % 0.5 PT with INR INR Sodium 143 Potassium 3.9 Chloride 104 Carbon Dioxide 33 H Anion Gap 6 L BUN 17 Creatinine 0.8 Creat Clearance w eGFR > 60 Random Glucose 88 Lactic Acid Calcium 9.1 Total Bilirubin 0.2 AST 27 ALT 36 Alkaline Phosphatase 70 Creatine Kinase 57 Troponin I < 0.02 Total Protein 6.6 Albumin 3.9 Lipase 142 Urine Color Yellow Urine Appearance Clear Urine pH 5.0 Ur Specific [place] 1.015 Urine Protein Negative Urine Glucose (UA) Negative Urine Ketones Negative Urine Blood Negative Urine Nitrite Negative Urine Bilirubin Negative Urine Urobilinogen Negative Ur Leukocyte Esterase Trace Urine WBC (Auto) 12 Urine RBC (Auto) <1 Blood Type Antibody Screen -Abd/pelvis CT: report pending, however WNL -EKG: normal sinus rhythm, 422 QTc -UCx: still to be collected -Flu swab: to be collected ASSESSMENT/PLAN: 47 y/o F with PMH MS, HLD, frequent UTI's, nephrolithiasis, neurogenic bladder ( urinates on own, but is scheduled to self-cath 3x/day. Admits non-compliance with routine), recent admission for pyelonephritis with resistant Klebsiella, E.coli tx with cipro, rocephin via PICC line 10 day course, recent admission at [facility] (2 days prior) for dehydration, who presents to the ED with suprapubic tenderness and b/l flank pain for the past six days. Pt admitted to obs for suspected pyelonephritis. #Suspected ?R sided Pyelonephritis -pt afebrile, without white count -UA: trace leuk esterase, WBCs 12, pt with suprapubic tenderness -R (>L) CVA tenderness -IVF -F/u UCx -Nephro consult- Dr. Purcell -Continued on Rocephin 1g IVPB qd -Tramadol 50mg PO q6h for pain control #MS -Continue Gilenya 0.5mg qd -Continue neurontin 300mg AM, 600 mg PO HS -Baclofen 20mg BID -Colace 100mg PO TID #HLD -Continue lipitor 40mg PO qHS #Insomnia -Continue ambien 10mg PO HS #PPX DVT: SCD's #F/E/N IV NS 75 cc/hr Monitor electrolytes Regular diet #Dispo Observation Visit type - Emergency Visit Emergency Visit: Yes ED Registration Date: 04/14/17 Care time: The patient presented to the Emergency Department on the above date and was hospitalized for further evaluation of their emergent condition. - New Patient This patient is new to me today: Yes Date on this admission: 04/15/17 - Critical Care Critical Care patient: No
[2017-04-14] MEDS ORDERED: SODIUM CHLORIDE 1,000 ML IV SCH (23:15)
[2017-04-14] MEDS ORDERED: GABAPENTIN 300 MG CAPSULE (FP) PO SCH (23:15)
[2017-04-14] MEDS ORDERED: DOCUSATE SODIUM 100 MG CAPSULE (FP) PO SCH (23:15)
[2017-04-14] MEDS ORDERED: morphine CARPU-JECT 2 MG/1 ML DISP.SYRIN IVPUSH PRN (23:21)
[2017-04-14] MEDS ORDERED: traMADol HCL 50 MG TABLET PO PRN (23:34)
[2017-04-15] MEDS ORDERED: ATORVASTATIN CA 40 MG TABLET (FP) PO SCH ×2 (00:24→22:00)
[2017-04-15] MEDS ORDERED: FINGOLIMOD HCL 0.5 MG PO SCH ×2 (00:25→10:00)
[2017-04-15] MEDS ORDERED: ALPRAZolam 0.25 MG TABLET ONE (00:25)
[2017-04-15] MEDS ORDERED: BACLOFEN 10 MG TABLET (FP) ONE (00:26)
[2017-04-15] MEDS ORDERED: GABAPENTIN 300 MG CAPSULE (FP) PO SCH ×4 (00:26→22:00)
[2017-04-15] MEDS ORDERED: rOPINIRole HCL 1 MG TABLET (FP) PO SCH ×5 (00:27→22:00)
[2017-04-15] MEDS ORDERED: ZOLPIDEM TARTRATE 5 MG TABLET PO PRN ×3 (00:28→01:17)
[2017-04-15] MEDS: ALPRAZolam 0.25 MG TABLET PO SCH ×2 (00:32→10:28)
[2017-04-15] MEDS: BACLOFEN 10 MG TABLET (FP) PO SCH ×2 (00:32→10:25)
[2017-04-15] MEDS ORDERED: ZOLPIDEM TARTRATE 5 MG TABLET ONE (01:42)
[2017-04-15] MEDS ORDERED: rOPINIRole HCL 1 MG TABLET (FP) PO STA (02:06)
[2017-04-15] MEDS ORDERED: GABAPENTIN 300 MG CAPSULE (FP) PO STA (02:06)
[2017-04-15] MEDS ORDERED: PROPRANOLOL HCL 10 MG TABLET (FP) ONE (06:54)
[2017-04-15] MEDS ORDERED: DOCUSATE SODIUM 100 MG CAPSULE (FP) PO ONE (06:54)
[2017-04-15] MEDS: DOCUSATE SODIUM 100 MG CAPSULE (FP) PO SCH ×2 (07:01→14:37)
[2017-04-15] MEDS: PROPRANOLOL HCL 10 MG TABLET (FP) PO SCH ×2 (07:02→16:30)
[2017-04-15 08:37] LABS: ANION GAP 9 (8-16); BLOOD UREA NITROGEN 12 mg/dL (7-18); CALCIUM 8.7 mg/dL (8.5-10.1); CHLORIDE 105 mmol/L (98-107); CO2 27 mmol/L (21-32); CREATININE 0.7 mg/dL (0.55-1.02); GLUCOSE,RANDOM 74 mg/dL (74-106); MAGNESIUM 1.7 mg/dL (1.8-2.4); PHOSPHOROUS 3.9 mg/dL (2.5-4.9); POTASSIUM 3.6 mmol/L (3.5-5.1); SODIUM 141 mmol/L (136-145)
[2017-04-15 08:38] LABS: BASO % 0.6 % (0-2.0); EOS % 3.2 % (0-4.5); HEMATOCRIT 37.9 % (32.4-45.2); HEMOGLOBIN 12.3 GM/dL (10.7-15.3); LYMPH % 27.7 % (8-40); MCH 27.9 pg (25.7-33.7); MCHC 32.4 g/dl (32.0-36.0); MEAN PLT VOLUME 9.2 fl (7.5-11.1); MONO % 9.2 % (3.8-10.2); NEUT % 59.3 % (42.8-82.8); PLATELET COUNT 172 K/MM3 (134-434); RBC 4.41 M/mm3 (3.60-5.2); RDW 13.2 % (11.6-15.6); WHITE BLOOD COUNT 5.1 K/mm3 (4.0-10.0)
[2017-04-15] MEDS ORDERED: SERTRALINE HCL 50 MG TABLET (FP) PO SCH (10:00)
[2017-04-15] MEDS ORDERED: CHOLECALCIFEROL (VITAMIN D3) 1,000 UNIT TABLET (FP) PO SCH (10:00)
--- NOTE | 2017-04-15 12:26 | CONSULT ---
Consult Consult Specialty:: Nephrology ( Ben/ Gee) - History of Present Illness Chief Complaint: 47 y/o female admitted with dysuria and right flank pain. History of Present Illness: 47 y/o F with PMH MS, HLD, frequent UTI's, nephrolithiasis, neurogenic bladder, who is required to self catheterize three times a aline, but is mostly non- compliant with this procedure, who presented to the ER with suprapubic tenderness and b/l flank pain for the past six days, R> L. As per patient, on Saturday, she developed R sided tenderness. Pain was a 4/10, intermittent, and alternated between stabbing and dull sensations. She says her urine output has decreased. W[place]utter like having had low grade fever. No Hematuria. - History Source History Provided By: Patient - Past Medical History [employer]: Yes: Multiple Sclerosis, Other (MS. NEUROGENIC BLADDER--SELF CATHERIZES) Renal/: Yes: Neurogenic Bladder, Renal Calculi, UTI Psych: Yes: Anxiety - Alcohol/Substance Use Hx Alcohol Use: No - Smoking History Smoking history: Never smoked Aproximately how many cigarettes per day: 2 Home Medications - Allergies Allergies/Adverse Reactions: Allergies Allergy/AdvReac Type Severity Reaction Status Date / Time No Known Allergies Allergy Verified 04/14/17 13:14 - Home Medications Home Medications: Ambulatory Orders Bupropion HCl [Wellbutrin Xl -] 300 mg PO DAILY #0 tab 07/28/13 Ropinirole HCl [Requip -] 1 mg PO HS #0 tablet 07/28/13 Sertraline HCl [Zoloft -] 100 mg PO DAILY #0 tablet 07/28/13 Alprazolam [Xanax] 0.25 mg PO BID 09/26/16 Atorvastatin Ca [Lipitor] 40 mg PO HS 09/26/16 Fingolimod HCl [Gilenya] 0.5 mg PO DAILY 09/26/16 Gabapentin [Neurontin -] 600 mg PO HS 09/26/16 Zolpidem Tartrate [Ambien] 10 mg PO HS 09/26/16 Baclofen [Lioresal -] 20 mg PO BID 10/02/16 Cholecalciferol (Vitamin D3) [Vitamin D3] 1,000 unit PO DAILY 04/12/17 Docusate Sodium [Colace] 100 mg PO TID #30 capsule 04/12/17 Gabapentin [Neurontin] 300 mg PO DAILY 04/12/17 Ibuprofen 800 mg PO TID PRN 04/12/17 Oxycodone HCl/Acetaminophen [Percocet 10-325 mg Tablet] 1 each PO Q4H PRN Propranolol HCl 10 mg PO Q8H 04/12/17 Review of Systems - Review of Systems Constitutional: reports: Chills Eyes: reports: No Symptoms HENT: reports: Difficult Swallowing (minimal, related to MS) Neck: reports: No Symptoms Cardiovascular: reports: No Symptoms. denies: Chest Pain, Palpitations, Shortness of Breath Respiratory: denies: Cough Gastrointestinal: reports: Abdominal Pain (suprapubic) Genitourinary: reports: Dysuria, Flank Pain Musculoskeletal: reports: Back Pain Neurological: reports: Headache Physical Exam Vital Signs: Vital Signs Temperature 98.8 F 04/14/17 19:34 Pulse Rate 76 04/15/17 07:04 Respiratory Rate 18 04/15/17 07:04 Blood Pressure 121/72 04/15/17 07:04 O2 Sat by Pulse Oximetry (%) 99 04/15/17 07:04 Constitutional: Yes: Mild Distress HENT: Yes: Normocephalic Cardiovascular: Yes: Regular Rate and Rhythm, S1, S2 Respiratory: Yes: CTA Bilaterally Gastrointestinal: Yes: Normal Bowel Sounds, Soft. No: Palpable Mass, Tenderness , Epigastrium Renal/: Yes: CVA Tenderness - Left, CVA Tenderness - Right Musculoskeletal: Yes: Back Pain Neurological: Yes: Alert, Oriented Psychiatric: Yes: Alert, Oriented Labs: CBC, BMP 04/15/17 07:42 04/15/17 07:42 Problem List - Problems (1) Multiple sclerosis Code(s): G35 - MULTIPLE SCLEROSIS (2) Neurogenic bladder Code(s): N31.9 - NEUROMUSCULAR DYSFUNCTION OF BLADDER, UNSPECIFIED (3) UTI (urinary tract infection) Code(s): N39.0 - URINARY TRACT INFECTION, SITE NOT SPECIFIED Qualifiers: Urinary tract infection type: site unspecified Hematuria presence: without hematuria Qualified Code(s): N39.0 - Urinary tract infection, site not specified (4) Dehydration Code(s): E86.0 - DEHYDRATION (5) Intractable pain Code(s): R52 - PAIN, UNSPECIFIED Assessment/Plan 47 y/o F with PMH MS, HLD, frequent UTI's, Nephrolithiasis, Neurogenic bladder on Self Catheteriztion protocol, non-compliant, admitted with bilateral flank pains and dysuria. The patient had a urine culture done prior to any antibiotics, and it is Negative. IV fluids and IV Rocephin were given. The w/u so far not indicative of an acute infection. CT Scan of the abdomen is negative. Renal sonogram is negative. At this junture, the etiology of her severe pain is unclear. ?? Musculoskeletal. Suggest: Physical therapy Pain management ? Neurology evaluation. Tammy Contreras MD
--- NOTE | 2017-04-15 13:04 | EKG ---
Test Reason : Blood Pressure : / mmHG Vent. Rate : 060 BPM Atrial Rate : 060 BPM P-R Int : 134 ms QRS Dur : 084 ms QT Int : 422 ms P-R-T Axes : 044 064 059 degrees QTc Int : 422 ms NORMAL SINUS RHYTHM NORMAL ECG WHEN COMPARED WITH ECG OF 02-OCT-2016 15:14, NO SIGNIFICANT CHANGE WAS FOUND Confirmed by DARION ROSADO MD ([id number]) on 04/15/2017 1:04:28 PM Referred By: Confirmed By:DARION ROSADO MD
[2017-04-15] MEDS ORDERED: PT OWN MED DRAWER 7, Y5N ONE (14:29)
[2017-04-15 15:27] VITALS: BP 124/75; PULSE 71; TEMP 98.5
[2017-04-15] MEDS ORDERED: CEFTRIAXONE 1 G/50 ML PREMIX 50 ML IVPB SCH (17:00)
--- NOTE | 2017-04-15 18:10 | PN ---
Teaching Attending Note Name of Resident: Ricardo Hoffman ATTENDING PHYSICIAN STATEMENT I saw and evaluated the patient. I reviewed the resident's note and discussed the case with the resident. I agree with the resident's findings and plan as documented. SUBJECTIVE:continues to have B/L flank pain R>L. states she has been having urinary frequency but has not had the need to straight cath more frequently. states she does not do it as often as she was instructed. has not noticed increased output during the times she does cath. no burning urination but state the urine is darker than usual. has been having these symptoms for over a week and saw her PMD who did urine test and went to [place] 2 days ago and did a urine test. denies CP, SOB, fever, chills, N/V/C/D OBJECTIVE: Last Vital Signs Temp Pulse Resp BP Pulse Ox 98.5 F 71 18 124/75 100 04/15/17 15:26 04/15/17 15:26 04/15/17 15:26 04/15/17 15:26 04/15/17 15:00 General NAD CV S1 S2 + Lungs CTA B/L no wheezing/rales/rhonchi Abdomen soft NT/ND no rebound or guarding no cva tenderness Back some muscle spasm on R flank. no bone point tenderness, good anterior flexion/extension at the hips. extremities no calf pain, no pedal edema ASSESSMENT AND PLAN: 47yo F with PMH MS, neurogenic bladder with frequent UTI presented to the Er with B/L flank pain 1. B/L flank pain- there was concern for pyelonephritis however I do not think pt has an acute infection. imaging and labs reviewed with PMD. UCx from last week was no growth iwth negative UA. [facility] ( insignificant growth on UCx) and negative UA here. imaging negative. afebrile with no leukocytosis. will d/c abx. likely to be musculskeletal. pain is mostly resolved now. PT assessment. pending on ambulation can d/c home. encourage to increase the number of straight caths. will f/u with PMD this week
--- NOTE | 2017-04-15 18:32 | DS ---
Physical Exam: SUBJECTIVE: Patient seen and examined. Says she continues to have Right Flank, and suprapubic pain. She also complains of increased in urinary frequency. She says she is supposed to self cath 3 times a day but she is not compliant in doing so. She denies dysuria, sob, dizziness, nausea, vomiting, fevers and chills. OBJECTIVE: Vital Signs Period Temp Pulse Resp BP Sys/Marquez Pulse Ox Last 24 Hr 98.3 F-98.8 F 64-76 18-18 121-124/72-87 99-100 PHYSICAL EXAM GENERAL: Resting comfortably in bed. Awake, alert, and fully oriented, in no acute distress. HEAD: Normal with no signs of trauma. EYES: Pupils equal, round and reactive to light, extraocular movements intact, sclera anicteric, conjunctiva clear. EARS, NOSE, THROAT: Ears normal, nares patent, oropharynx clear without exudates. Moist mucous membranes. NECK: Normal range of motion, supple LUNGS: Breath sounds equal, clear to auscultation bilaterally. No wheezes, and no crackles. No accessory muscle use. HEART: Regular rate and rhythm, normal S1 and S2 without murmur, rub or gallop. ABDOMEN: Soft, non distended, RUQ tenderness, R CVA tenderness. Suprapubic tenderness. Negative hickman and rebound. MUSCULOSKELETAL: Normal range of motion at all joints. No bony deformities or tenderness. CVA tenderness (R>L) LOWER EXTREMITIES: 2+ posterior tibial pulses, warm, well-perfused. No peripheral edema. NEUROLOGICAL: Cranial nerves II-XII intact. LABS Laboratory Results - last 24 hr 04/15/17 04/15/17 07:42 07:42 WBC 5.1 RBC 4.41 Hgb 12.3 Hct 37.9 MCV 86.0 MCH 27.9 MCHC 32.4 RDW 13.2 Plt Count 172 MPV 9.2 Neutrophils % 59.3 Lymphocytes % 27.7 Monocytes % 9.2 Eosinophils % 3.2 Basophils % 0.6 Sodium 141 Potassium 3.6 Chloride 105 Carbon Dioxide 27 Anion Gap 9 BUN 12 Creatinine 0.7 Random Glucose 74 Calcium 8.7 Phosphorus 3.9 Magnesium 1.7 L HOSPITAL COURSE: Date of Admission:04/14/17 47 y/o F with PMH MS, HLD, frequent UTI's, nephrolithiasis, neurogenic bladder ( self-cath 3x/day. Admits non-compliance with routine), recent admission for pyelonephritis with resistant Klebsiella, E.coli tx with cipro, rocephin via PICC line 10 day course, recent admission at [facility] (2 days prior) for dehydration, who presents to the ED with suprapubic tenderness and b/l flank pain for the past six days and was admitted for suspicion of Pyelonephritis. Patient was treated with IV Abx: Ceftriaxone, Fluids, and morphine/percocet for pain control. However, U/A and CT A/P were unremarkable for UTI/Pyelo. Patient also had UCx from last week with no growth with negative UA. Patient is afebrile with no leukocytosis. Antibiotics were D/c'ed. Patient's symptoms likely Musculoskeletal. Her symptoms improved. Patient was seen and cleared by PT, and was clinically stable for discharge. She was was advised to follow up with her PCP in 1 week. She will continue all her home meds without any changes. Date of Discharge: 04/15/17 Minutes to complete discharge: 35 Discharge Summary Reason For Visit: UTI, MULTIPLE SCLEROSIS Condition: Good - Instructions Diet, Activity, Other Instructions: You were evaluated for infection. It appears that all testing has been negative for infection. Your CT was normal Please continue straight catheterizations as you were instructed. Please follow up with your primary care physician in 1 week. Continue all your home medications. We did not change anything. Continue with your outpatient physical therapy. If you feel your symptoms are worsening, please call your doctor or go to the nearest emergency room. Referrals: Tammy Contreras MD [Primary Care Provider] - Disposition: HOME - Home Medications Comprehensive Discharge Medication List: Ambulatory Orders Bupropion HCl [Wellbutrin Xl -] 300 mg PO DAILY #0 tab 07/28/13 Ropinirole HCl [Requip -] 1 mg PO HS #0 tablet 07/28/13 Sertraline HCl [Zoloft -] 100 mg PO DAILY #0 tablet 07/28/13 Atorvastatin Ca [Lipitor] 40 mg PO HS 09/26/16 Fingolimod HCl [Gilenya] 0.5 mg PO DAILY 09/26/16 Zolpidem Tartrate [Ambien] 10 mg PO HS 09/26/16 Baclofen [Lioresal -] 20 mg PO BID 10/02/16 Cholecalciferol (Vitamin D3) [Vitamin D3] 1,000 unit PO DAILY 04/12/17 Docusate Sodium [Colace] 100 mg PO TID #30 capsule 04/12/17 Gabapentin [Neurontin] 300 mg PO DAILY 04/12/17 Propranolol HCl 10 mg PO Q8H 04/12/17 Alprazolam [Xanax] 0.25 mg PO BID tablet MDD .5 04/15/17 This patient is new to me today: Yes Date on this admission: 04/15/17 Emergency Visit: Yes ED Registration Date: 04/14/17 Care time: The patient presented to the Emergency Department on the above date and was hospitalized for further evaluation of their emergent condition. Critical Care patient: No - Discharge Referral Referred to [facility] No
[2017-04-15] MEDS ORDERED: ZOLPIDEM TARTRATE 5 MG TABLET PO SCH (22:00)
== END 2017-04-15 17:35 | disposition home or self-care (01) ==
LOC: JER 13:11 → SUPCPDRO 13:11 → JERBED 22:02 → J6S 04-15 07:55
PROVIDERS: ADMIT Internal Medicine; ATTEND Internal Medicine
PROC: 3E03329 Introduction of Other Anti-infective into Peripheral Vein, Percutaneous Approach (ICD-10-PCS; principal; 2017-04-14)
PROC: 3E033NZ Introduction of Analgesics, Hypnotics, Sedatives into Peripheral Vein, Percutaneous Approach (ICD-10-PCS; 2017-04-14)
PROC: 3E033GC Introduction of Other Therapeutic Substance into Peripheral Vein, Percutaneous Approach (ICD-10-PCS; 2017-04-14)
PROC: 3E0337Z Introduction of Electrolytic and Water Balance Substance into Peripheral Vein, Percutaneous Approach (ICD-10-PCS; 2017-04-14)
DX: N39.0 Urinary tract infection, site not specified (principal); G35 Multiple sclerosis; N31.9 Neuromuscular dysfunction of bladder, unspecified; R10.30 Lower abdominal pain, unspecified; E78.5 Hyperlipidemia, unspecified; Z72.0 Tobacco use; G47.00 Insomnia, unspecified; E86.0 Dehydration
CPT/HCPCS: 36415; 71045-TC; 74177-TC; 80048; 80053; 81003; 81015; 82550; 83605; 83690; 83735; 84100; 84484; 85025; 85610; 86850; 86900; 86901; 87086; 87186; 87804; 93005; 93010; 97116-GP; 97161-GP; 99285-25; G0378; J0475

== ENCOUNTER 2017-08-16 01:52 | Emergency (ER) | payer OTHER ==
[2017-08-16 01:57] VITALS: BP 119/86; TEMP 98.2; BMI 23.3
[2017-08-16] MEDS ORDERED: ACETAMINOPHEN 1000 MG/100 ML VIAL (NON FORMULARY) IVPB ONE (02:31)
[2017-08-16] MEDS ORDERED: SODIUM CHLORIDE 1,000 ML IV STA (02:31)
[2017-08-16 02:43] LABS: HCG,QUALITATIVE URINE NEGATIVE
[2017-08-16 02:46] LABS: BASO % 0.4 % (0-2.0); EOS % 2.5 % (0-4.5); HEMATOCRIT 37.5 % (32.4-45.2); HEMOGLOBIN 12.5 GM/dL (10.7-15.3); LYMPH % 13.1 % (8-40); MCH 28.4 pg (25.7-33.7); MCHC 33.4 g/dl (32.0-36.0); MEAN PLT VOLUME 9.1 fl (7.5-11.1); MONO % 14.6 % (3.8-10.2); NEUT % 69.4 % (42.8-82.8); PLATELET COUNT 207 K/MM3 (134-434); RBC 4.41 M/mm3 (3.60-5.2); RDW 13.3 % (11.6-15.6); WHITE BLOOD COUNT 4.3 K/mm3 (4.0-10.0)
[2017-08-16] MEDS ORDERED: ACETAMINOPHEN INJECTION 100 ML IVPB ONE (02:47)
[2017-08-16 02:48] LABS: URINE APPEARANCE CLEAR; URINE BILIRUBIN NEGATIVE (<2.0 mg/dL); URINE COLOR YELLOW; URINE GLUCOSE (UA) NEGATIVE (NEGATIVE); URINE KETONE TRACE (NEGATIVE); URINE LEUK ESTERASE TRACE (NEGATIVE); URINE NITRITE NEGATIVE (NEGATIVE); URINE PROTEIN 1+ (NEGATIVE)
[2017-08-16 02:51] LABS: URINE MUCUS RARE
[2017-08-16 03:11] LABS: ALBUMIN 3.7 g/dl (3.4-5.0); ALK PHOS 88 U/L (45-117); ANION GAP 10 (8-16); BILIRUBIN,TOTAL 0.3 mg/dL (0.2-1.0); BLOOD UREA NITROGEN 26 mg/dL (7-18); CHLORIDE 107 mmol/L (98-107); CO2 26 mmol/L (21-32); CREATININE 0.9 mg/dL (0.55-1.02); GLUCOSE,RANDOM 100 mg/dL (74-106); LIPASE 177 U/L (73-393); POTASSIUM 3.9 mmol/L (3.5-5.1); SGOT/AST 40 U/L (15-37); SGPT/ALT 42 U/L (12-78); SODIUM 143 mmol/L (136-145); TOT PROT 6.5 g/dl (6.4-8.2)
[2017-08-16] MEDS ORDERED: KETOROLAC TROMETHAMINE 15 MG/ML VIAL ONE (03:17)
[2017-08-16] MEDS ORDERED: KETOROLAC TROMETHAMINE 15 MG/ML VIAL IVPUSH ONE (03:17)
[2017-08-16] MEDS ORDERED: morphine SULFATE 4 MG/ML VIAL ONE (03:48)
[2017-08-16] MEDS ORDERED: morphine CARPU-JECT 4 MG/1 ML DISP.SYRIN IVPUSH ONE (03:48)
--- NOTE | 2017-08-16 04:51 | PDOC ---
History of Present Illness - General Chief Complaint: Pain Stated Complaint: PELVIC PAIN Time Seen by Provider: 08/16/17 02:03 - History of Present Illness Initial Comments: 08/16/17 04:46 "Patient is a 47 year old female with a significant past medical history of MS, HLD, frequent UTI's, nephrolithiasis, neurogenic bladder (self-caths 3x/day) who presents to the ED with complaints of superpubic pain that began earlier this week. Pt also reports associated lower back pain and nausea. She reports going to urgent care 2 days ago for same symptoms and was prescribed bactrim for x1 week for UTI. However, she reports no improvement in her symptoms even with the abx. She states she was told to stop the bactrim today because her urine culture came out negative. She notes that her current pain does not feel like past episodes of UTI. Denies chest pain, Sob. Denies nausea, vomiting. Denies contact with sick individuals, out of state travel Allergies: None Social history: No smoking. No alcohol. No illicit drugs. Surgical history: R ovarian dermoid cyst removal (1999), tonsillectomy ( childhood) PMD: Dr. Tammy Contreras Past History - Past Medical History Allergies/Adverse Reactions: Allergies Allergy/AdvReac Type Severity Reaction Status Date / Time No Known Allergies Allergy Verified 08/16/17 01:55 Home Medications: Ambulatory Orders Bupropion HCl [Wellbutrin Xl -] 300 mg PO DAILY #0 tab 07/28/13 Ropinirole HCl [Requip -] 1 mg PO HS #0 tablet 07/28/13 Sertraline HCl [Zoloft -] 100 mg PO DAILY #0 tablet 07/28/13 Atorvastatin Ca [Lipitor] 40 mg PO HS 09/26/16 Fingolimod HCl [Gilenya] 0.5 mg PO DAILY 09/26/16 Zolpidem Tartrate [Ambien] 10 mg PO HS 09/26/16 Baclofen [Lioresal -] 20 mg PO BID 10/02/16 Docusate Sodium [Colace] 100 mg PO TID #30 capsule 04/12/17 Gabapentin [Neurontin] 300 mg PO DAILY 04/12/17 Propranolol HCl 10 mg PO Q8H 04/12/17 Alprazolam [Xanax] 0.25 mg PO BID tablet MDD .5 04/15/17 Gabapentin [Neurontin] 600 mg PO HS 08/16/17 Ibuprofen [Motrin -] 800 mg PO PRN PRN 08/16/17 Oxycodone HCl/Acetaminophen [Percocet 5-325 mg Tablet] 1 - 2 tab PO DAILY COPD: No GI Disorders: Yes (NEUROGENIC BLADDER. STRAIGHT CATHS.) Hypercholesterolemia: Yes - Suicide/Smoking/Psychosocial Hx Smoking History: Current some day smoker Number of Cigarettes Smoked Daily: 2 Information on smoking cessation initiated: No 'Breaking Loose' booklet given: 03/20/13 Hx Alcohol Use: No Drug/Substance Use Hx: No Substance Use Type: None Hx Substance Use Treatment: No Review of Systems - Review of Systems Comments:: 08/16/17 04:55 "GENERAL/CONSTITUTIONAL: No fever or chills. HEAD, EYES, EARS, NOSE AND THROAT: No change in vision. No ear pain or discharge. No sore throat. CARDIOVASCULAR: No chest pain or shortness of breath. RESPIRATORY: No cough, wheezing, or hemoptysis. GASTROINTESTINAL: +Nausea. No vomiting, diarrhea or constipation. GENITOURINARY: No dysuria, frequency, or change in urination. MUSCULOSKELETAL: +Lower back pain. +suprapubic pain. No neck pain. SKIN: No rash NEUROLOGIC: No headache, vertigo, loss of consciousness, or change in strength/ sensation. ENDOCRINE: No increased thirst. No abnormal weight change. HEMATOLOGIC/LYMPHATIC: No anemia, easy bleeding, or history of blood clots. ALLERGIC/IMMUNOLOGIC: No hives or skin allergy." *Physical Exam - Vital Signs Last Vital Signs Temp Pulse Resp BP Pulse Ox 98.2 F 85 20 119/86 100 08/16/17 01:55 08/16/17 01:55 08/16/17 01:55 08/16/17 01:55 08/16/17 01:55 - Physical Exam Comments: 08/16/17 04:55 "GENERAL: Awake, alert, and fully oriented, in no acute distress. HEAD: No signs of trauma EYES: PERRLA, EOMI, sclera anicteric, conjunctiva clear ENT: Auricles normal inspection, hearing grossly normal, nares patent, oropharynx clear without exudates. Moist mucosa NECK: Nontender, no stepoffs, Normal ROM, supple, no lymphadenopathy, JVD, or masses LUNGS: Breath sounds equal, clear to auscultation bilaterally. No wheezes, and no crackles HEART: Regular rate and rhythm, normal S1 and S2, no murmurs, rubs or gallops ABDOMEN: Soft, nontender, normoactive bowel sounds. No guarding, no rebound. No masses EXTREMITIES: Normal range of motion, no edema. No clubbing or cyanosis. No cords, erythema, or tenderness MUSCULOSKELETAL: +Suprapubic tenderness NEUROLOGICAL: Cranial nerves II through XII intact. 5/5 strength and sensation in all extremities, Normal speech, normal gait, normal cerebellar function SKIN: Warm, Dry, normal turgor, no rashes or lesions noted. : no CMT, normal physiologic discharge, no lesions ED Treatment Course - LABORATORY CBC & Chemistry Diagram: 08/16/17 02:30 08/16/17 02:30 - ADDITIONAL ORDERS Additional order review: Laboratory Results 08/16/17 08/16/17 02:30 02:30 Sodium 143 Potassium 3.9 Chloride 107 Carbon Dioxide 26 Anion Gap 10 BUN 26 H Creatinine 0.9 Creat Clearance w eGFR > 60 Random Glucose 100 Calcium 9.0 Total Bilirubin 0.3 D AST 40 H ALT 42 Alkaline Phosphatase 88 Total Protein 6.5 Albumin 3.7 Lipase 177 Urine Color Yellow Urine Appearance Clear Urine pH 5.0 Ur Specific [place] 1.034 Urine Protein 1+ H Urine Glucose (UA) Negative Urine Ketones Trace H Urine Blood Negative Urine Nitrite Negative Urine Bilirubin Negative Urine Urobilinogen 2.0 H Ur Leukocyte Esterase Trace Urine WBC (Auto) None Urine RBC (Auto) <1 Urine Mucus Rare Urine HCG, Qual Negative 08/16/17 02:30 RBC 4.41 MCV 85.0 MCHC 33.4 RDW 13.3 MPV 9.1 Neutrophils % 69.4 Lymphocytes % 13.1 D Monocytes % 14.6 H Eosinophils % 2.5 Basophils % 0.4 - RADIOLOGY Radiology Studies Ordered: Category Date Time Status ABDOMEN & PELVIS CT WITH CONTR [CT] Stat CT Scan 08/16/17 03:24 Taken - Medications Given in the ED: ED Medications Discontinued Medications Generic Name Dose Route Start Last Admin Trade Name Freq PRN Reason Stop Dose Admin Acetaminophen 1,000 mg 08/16/17 02:31 08/16/17 02:52 Ofirmev Injection - IVPB 08/16/17 02:32 1,000 mg ONCE ONE Administration Sodium Chloride 1,000 mls @ 1,000 mls/hr 08/16/17 02:31 08/16/17 02:52 Normal Saline - IV 08/16/17 03:30 1,000 mls/hr ASDIR STA Administration Ketorolac Tromethamine 15 mg 08/16/17 03:17 08/16/17 03:20 Toradol Injection - IVPUSH 08/16/17 03:18 15 mg ONCE ONE Administration Morphine Sulfate 4 mg 08/16/17 03:48 08/16/17 03:52 Morphine Injection - IVPUSH 08/16/17 03:49 4 mg ONCE ONE Administration Medical Decision Making - Medical Decision Making 08/16/17 05:18 47 F with suprapubic pain. UTI vs bladder spasm. Also consider colitis, as pain is slightly more localized to LLQ than RLQ. Pt with no evidence of PID. No abnormal discharge to suggest candidiasis or BV. - Labs, UA, UCx - CTAP - IVF, pain control 08/16/17 05:55 CT negative Labs and UA unremarkable. Pt is well appearing, with normal vitals. Clinically stable for DC at this time. I discussed the physical exam findings, ancillary test results and final diagnoses with the patient. I answered all of the patient's questions. The patient was satisfied with the care received and felt comfortable with the discharge plan and treatment plan. The patient agrees to follow up with the primary care physician within 24-72 hours. *DC/Admit/Observation/Transfer Diagnosis at time of Disposition: Abdominal pain - Discharge Dispostion Disposition: HOME - Referrals Referrals: Tammy Contreras MD [Primary Care Provider] - - Patient Instructions Printed Discharge Instructions: DI for Abdominal Pain-Adult Additional Instructions: Please follow up with your inter com servicer within 1 week for further evaluation of your abdominal pain. If you experience worsening pain, fevers, vomiting, or any other concerning symptoms, return to the ER immediately. - Post Discharge Activity - Attestations Physician Attestion: 08/16/17 05:58 I, Dr. Yuri Dillon MD, attest that this document has been prepared under my direction and personally reviewed by me in its entirety. I further attest, that it accurately reflects all work, treatment, procedures and medical decision -making performed by me.
[2017-08-16] MEDS ORDERED: OXYBUTYNIN CHLORIDE 5 MG TABLET PO ONE (05:18)
[2017-08-16 05:58] VITALS: PULSE 80
== END 2017-08-16 06:10 | disposition home or self-care (01) ==
LOC: JER 01:52
PROC: 3E033NZ Introduction of Analgesics, Hypnotics, Sedatives into Peripheral Vein, Percutaneous Approach (ICD-10-PCS; principal; 2017-08-16)
PROC: 3E0333Z Introduction of Anti-inflammatory into Peripheral Vein, Percutaneous Approach (ICD-10-PCS; 2017-08-16)
PROC: 3E0337Z Introduction of Electrolytic and Water Balance Substance into Peripheral Vein, Percutaneous Approach (ICD-10-PCS; 2017-08-16)
DX: R10.30 Lower abdominal pain, unspecified (principal); G35 Multiple sclerosis; E78.5 Hyperlipidemia, unspecified; Z87.440 Personal history of urinary (tract) infections
CPT/HCPCS: 36415; 74177-TC; 80053; 81003; 81015; 83690; 84703; 85025; 87086; 99283-25; J0131; J7030

== ENCOUNTER 2018-09-08 21:51 | Observation (INO) | payer OTHER ==
--- NOTE | 2018-09-08 21:54 | PDOC ---
Rapid Medical Evaluation Time Seen by Provider: 09/08/18 21:52 Medical Evaluation: Allergies Allergy/AdvReac Type Severity Reaction Status Date / Time No Known Allergies Allergy Verified 08/16/17 01:55 09/08/18 21:52 I have performed a brief in-person evaluation of this patient. The patient presents with a chief complaint of: right sided chest pain with palpitations Pertinent physical exam findings: RRR. No m/r/g. No edema present I have ordered the following: cardiac w/u The patient will proceed to the ED for further evaluation. Discharge Disposition - Diagnosis Chest pain - Referrals - Patient Instructions - Post Discharge Activity
[2018-09-08 21:56] VITALS: BMI 24.2
[2018-09-08] MEDS ORDERED: ASPIRIN 81 MG CHEWABLE TABLETS PO ONE (22:19)
[2018-09-08] MEDS ORDERED: morphine CARPU-JECT 4 MG/1 ML DISP.SYRIN IVPUSH ONE (22:20)
[2018-09-08] MEDS ORDERED: LACTATED RINGERS SOLUTION 1000 ML INFUS.BAG IV ONE (22:21)
--- NOTE | 2018-09-08 22:26 | PDOC ---
History of Present Illness - General Chief Complaint: Chest Pain Stated Complaint: CHEST PAIN Time Seen by Provider: 09/08/18 21:52 - History of Present Illness Initial Comments: The pt is a 48F w/ a history of MS, thyroid nodules, and anxiety who presents for evaluation of chest pain, SOB, and palpitations. The patient reports non- exertional palpitations yesterday. Then reports chest pain today that started at rest, is right sided, constant, non-radiating, associated with intermittent shortness of breath, is not worsened or exacerbated by anything she can identify. She reports lifting something heavy yesterday and attributes her pain to that but her pain was not alleviated by Ibuprofen today. She reports that she straight caths herself for urine 2/2 her MS. She denies fevers/chills, NAVA, vision changes, abdominal pain, N/V/C/D, hematuria , or blood in her stool. 09/08/18 22:26 Past History - Past Medical History Allergies/Adverse Reactions: Allergies Allergy/AdvReac Type Severity Reaction Status Date / Time No Known Allergies Allergy Verified 09/08/18 21:56 Home Medications: Ambulatory Orders Bupropion HCl [Wellbutrin Xl -] 300 mg PO DAILY #0 tab 07/28/13 Ropinirole HCl [Requip -] 1 mg PO HS #0 tablet 07/28/13 Sertraline HCl [Zoloft -] 100 mg PO DAILY #0 tablet 07/28/13 Atorvastatin Ca [Lipitor] 40 mg PO HS 09/26/16 Fingolimod HCl [Gilenya] 0.5 mg PO DAILY 09/26/16 Zolpidem Tartrate [Ambien] 10 mg PO HS 09/26/16 Baclofen [Lioresal -] 20 mg PO BID 10/02/16 Docusate Sodium [Colace] 100 mg PO TID #30 capsule 04/12/17 Gabapentin [Neurontin] 300 mg PO DAILY 04/12/17 Propranolol HCl 10 mg PO Q8H 04/12/17 Alprazolam [Xanax] 0.25 mg PO BID tablet MDD .5 04/15/17 Gabapentin [Neurontin] 600 mg PO HS 08/16/17 Ibuprofen [Motrin -] 800 mg PO PRN PRN 08/16/17 Oxycodone HCl/Acetaminophen [Percocet 5-325 mg Tablet] 1 - 2 tab PO DAILY COPD: No GI Disorders: Yes (NEUROGENIC BLADDER. STRAIGHT CATHS.) Hypercholesterolemia: Yes - Suicide/Smoking/Psychosocial Hx Smoking History: Current every day smoker Have you smoked in the past 12 months: Yes Number of Cigarettes Smoked Daily: 5 Information on smoking cessation initiated: No 'Breaking Loose' booklet given: 03/20/13 Hx Alcohol Use: No Drug/Substance Use Hx: No Substance Use Type: None Hx Substance Use Treatment: No Review of Systems - Review of Systems Able to Perform ROS?: Yes Comments:: GENERAL/CONSTITUTIONAL: No fever or chills HEAD, EYES, EARS, NOSE AND THROAT: No change in vision. No ear pain or discharge. No sore throat CARDIOVASCULAR: +CP, palpitations, intermittent SOB RESPIRATORY: Denies cough, hemoptysis GASTROINTESTINAL: No nausea, vomiting, diarrhea or constipation GENITOURINARY: No dysuria, frequency, or change in urination MUSCULOSKELETAL: No joint or muscle swelling or pain. No neck or back pain SKIN: No rash NEUROLOGIC: +MS; +B/l hand and b/l feet tingling ENDOCRINE: No increased thirst. No abnormal weight change HEMATOLOGIC/LYMPHATIC: No anemia, easy bleeding, or history of blood clots ALLERGIC/IMMUNOLOGIC: No hives or skin allergy 09/08/18 22:22 Is the patient limited Tristanian proficient: No *Physical Exam - Vital Signs Last Vital Signs Temp Pulse Resp BP Pulse Ox 99.0 F 88 18 123/84 100 09/08/18 21:53 09/08/18 21:53 09/08/18 21:53 09/08/18 21:53 09/08/18 21:53 - Physical Exam Comments: GENERAL: Awake, alert, and oriented to person/place/time, in no acute distress HEAD: No signs of trauma, normocephalic, atraumatic EYES: PERRLA, EOMI, sclera anicteric, conjunctiva clear ENT: Hearing grossly normal, nares patent, oropharynx clear without exudates. No uvular deviation. Moist mucosa LUNGS: No distress, speaks in full sentences, clear to auscultation bilaterally HEART: Regular rate and rhythm, normal S1 and S2, no murmurs appreciated, peripheral pulses normal and equal bilaterally ABDOMEN: Soft, nontender, normoactive bowel sounds. No guarding, no rebound EXTREMITIES: Normal inspection, Normal range of motion, no edema. No clubbing or cyanosis NEUROLOGICAL: Cranial nerves II through XII grossly intact. Normal speech, normal gait, decreased sensation to light touch in hands and feet (reported baseline 2/2 MS) SKIN: Warm, Dry 09/08/18 22:22 Heart Score/ECG Review - History History: Slightly suspicious - Electrocardiogram EKG: Non specific repolarization disturbance - Age Age: 45-65 - Risk Factors Risk Factors Heart Score: Yes Smoking History, Yes Positive family hx of cardiac disease Based on the list above the patient has:: 1-2 risk factors - Troponin Troponin: </= normal limit - Score Heart Score - Total: 3 ED Treatment Course - LABORATORY CBC & Chemistry Diagram: 09/08/18 22:25 09/08/18 22:25 Medical Decision Making - Medical Decision Making The pt is a 48F w/ a history of Thyroid nodules, MS, anxiety who presents for evaluation of palpitations, chest pain, and SOB FH: Mother and Father w/ CAD < 55y old SH: +tobacco ED Course CMP, CBC, Trop I, TSH ECG CXR 09/08/18 22:24 HEART score 3 with family history of cardiac disease ECG w/ NSR, HR 76; no TIFFANIE 09/08/18 22:38 No anemia No leukocytosis 09/08/18 23:13 Initial trop I neg Lytes wnl LFTs unremarkable No JULIANNE Consider MS exacerbation but pt reports symptoms tend to be more peripheral sensation changes and not previously with chest pain Plan for Tele obs for ACS 09/09/18 00:05 Will give home Ropinirole, Ambien, and Gabapentin as pt has not taken them this evening [employer] sent, awaiting call back 09/09/18 00:47 *DC/Admit/Observation/Transfer Diagnosis at time of Disposition: Palpitations Chest pain Qualifiers: Chest pain type: unspecified Qualified Code(s): R07.9 - Chest pain, unspecified - Discharge Dispostion Condition at time of disposition: Good Decision to Admit order: Yes - Referrals Referrals: Tammy Contreras MD [Primary Care Provider] - - Patient Instructions - Post Discharge Activity
[2018-09-08] MEDS ORDERED: ASPIRIN 81 MG CHEWABLE TABLETS ONE (22:28)
[2018-09-08] MEDS ORDERED: morphine SULFATE 4 MG/ML VIAL ONE (22:29)
[2018-09-08 22:39] LABS: BASO % 0.5 % (0-2.0); EOS % 3.3 % (0-4.5); HEMOGLOBIN 11.6 GM/dL (10.7-15.3); LYMPH % 16.8 % (8-40); MCH 28.9 pg (25.7-33.7); MCHC 34.2 g/dl (32.0-36.0); MEAN CELL VOLUME 84.7 fl (80-96); MEAN PLT VOLUME 8.5 fl (7.5-11.1); MONO % 12.9 % (3.8-10.2); NEUT % 66.5 % (42.8-82.8); PLATELET COUNT 250 K/MM3 (134-434); RBC 4.02 M/mm3 (3.60-5.2); RDW 12.8 % (11.6-15.6); WHITE BLOOD COUNT 5.3 K/mm3 (4.0-10.0)
[2018-09-08 22:51] LABS: INR 0.83 (0.83-1.09); PROTHROMBIN TIME (PATIENT) 9.8 SEC (9.7-13.0)
[2018-09-08 23:22] LABS: ALBUMIN 4.1 g/dl (3.4-5.0); ALK PHOS 74 U/L (45-117); ANION GAP 5 MMOL/L (8-16); BILIRUBIN,TOTAL 0.2 mg/dL (0.2-1); BLOOD UREA NITROGEN 23.6 mg/dL (7-18); CALCIUM 8.8 mg/dL (8.5-10.1); CHLORIDE 106 mmol/L (98-107); CO2 30 mmol/L (21-32); CREATININE 0.9 mg/dL (0.55-1.3); GLUCOSE,RANDOM 99 mg/dL (74-106); MAGNESIUM 1.9 mg/dL (1.8-2.4); POTASSIUM 3.4 mmol/L (3.5-5.1); SGOT/AST 19 U/L (15-37); SGPT/ALT 26 U/L (13-61); SODIUM 141 mmol/L (136-145); TOT PROT 6.6 g/dl (6.4-8.2)
[2018-09-08] MEDS ORDERED: ACETAMINOPHEN 1000 MG/100 ML VIAL (NON FORMULARY) IVPB ONE (23:59)
[2018-09-09] MEDS ORDERED: ACETAMINOPHEN INJECTION 100 ML IVPB ONE (00:07)
--- NOTE | 2018-09-09 00:10 | PDOC ---
Documentation entered by Richard Graham SCRIBE, acting as scribe for Eusebio San MD. Eusebio San MD: This documentation has been prepared by the rogereSantos Elijah, SCRIBE, under my direction and personally reviewed by me in its entirety. I confirm that the documentation accurately reflects all work, treatment, procedures, and medical decision making performed by me. Attending Attestation - Resident Resident Name: Tez López - ED Attending Attestation I have performed the following: I have examined & evaluated the patient, The case was reviewed & discussed with the resident, I agree w/resident's findings & plan - HPI HPI: 09/08/18 22:44 The patient is a 48 year old female, with a significant PMH of MS, thyroid nodules, and anxiety who presents to the emergency department with palpitations beginning yesterday. The patient reports that she has developed right-sided chest pain and palpitations beginning two hours ago described as dull, constant , and non-radiating associated with minimal SOB. The patient took Ibuprofen to alleviate the symptoms, but when she had no relief, it prompted her visit to the ED. pt endorses tingling to her extremities Denies fevers, chills, headache, changes in vision, nausea, vomiting, constipation and diarrhea. Family hx: father/mother with CAD<55 Allergies: NKA - Physicial Exam PE: 09/09/18 00:04 GENERAL: The patient is awake, alert, and fully oriented, Nontoxic - in no acute distress. HEAD: Normocephalic, atraumatic. EYES: extraocular movements intact, sclera anicteric, conjunctiva clear. ENT: Normal voice, Moist mucous membranes. NECK: Normal range of motion, supple LUNGS: Breath sounds equal, clear to auscultation bilaterally. No wheezes, no rhonchi, no rales. HEART: Regular rate and rhythm, normal S1 and S2 without murmur, rub or gallop. ABDOMEN: Soft, nontender, normoactive bowel sounds. No guarding, no rebound. No CVA tenderness EXTREMITIES: Normal range of motion, moving all 4 ext sponatnoeouysly and symmetrically NEUROLOGICAL: No facial assymetry, Normal speech, PSYCH: Normal mood, normal affect. SKIN: Warm, Dry, normal turgor, - Medical Decision Making 09/09/18 00:07 ddx - acs, pna, arrythmia, anemia, metabolic derangement, ms flare labs reviewed - trop neg x 1 ekg is non ischemic due to family hx, anticipate observation for acs ro and workup Heart Score/ECG Review - ECG Impressions Comment:: 09/09/18 00:08 Twelve-lead EKG was performed and reviewed by me. There is normal sinus rhythm with a normal rate. Rate of 76 The axis is normal. The intervals are normal. There is normal R wave progression There are no ST or T wave abnormalities. Impression: Normal twelve-lead EKG
[2018-09-09] MEDS ORDERED: ZOLPIDEM TARTRATE 5 MG TABLET PO ONE (00:46)
[2018-09-09] MEDS ORDERED: GABAPENTIN 300 MG CAPSULE (FP) PO ONE (00:46)
[2018-09-09] MEDS ORDERED: rOPINIRole HCL 1 MG TABLET (FP) PO ONE (00:47)
[2018-09-09] MEDS ORDERED: POTASSIUM CHLORIDE TABS 20 MEQ TABLET.ER (FP) PO ONE (00:58)
[2018-09-09 01:29] LABS: URINE APPEARANCE CLEAR; URINE BILIRUBIN NEGATIVE (NEGATIVE); URINE COLOR YELLOW; URINE GLUCOSE (UA) NEGATIVE (NEGATIVE); URINE KETONE NEGATIVE (NEGATIVE); URINE LEUK ESTERASE NEGATIVE (NEGATIVE); URINE NITRITE NEGATIVE (NEGATIVE); URINE PROTEIN NEGATIVE (NEGATIVE)
[2018-09-09 01:33] LABS: HCG,QUALITATIVE URINE Negative
--- NOTE | 2018-09-09 01:35 | HP ---
Admitting History and Physical - Primary Care Physician PCP: Tammy Contreras - Admission Chief Complaint: Chest Pain, SOB, Palpitations History of Present Illness: This is a 48 y/o woman with a PMHx of MS, Neurogenic Bladder, Anxiety. Who presents to the ED with chest pain, palpitations and SOB. Patient reports having chest pressure, flutters and a "pounding to her chest". She reports that the pain is constant and radiates from the right chest wall to left chest wall. The patient reports having SOB ad an episodes of diaphoresis when it initially started. The patient denies fever, chills, cough, dizziness, AP, N/V/D, constipation, dysuria. Patient reports having Heart Disease in her family History Source: Patient Limitations to Obtaining History: No Limitations - Past Medical History DIRECT CARE COUNSELOR: Yes: Multiple Sclerosis, Other (MS. NEUROGENIC BLADDER--SELF CATHERIZES) Renal/: Yes: Neurogenic Bladder, Renal Calculi, UTI Psych: Yes: Anxiety - Past Surgical History Past Surgical History: Yes: Tonsillectomy Additional Past Surgical History: Ovarian Cyst removal - Smoking History Smoking history: Current every day smoker Have you smoked in the past 12 months: Yes Aproximately how many cigarettes per day: 5 - Alcohol/Substance Use Hx Alcohol Use: No Home Medications - Allergies Allergies/Adverse Reactions: Allergies Allergy/AdvReac Type Severity Reaction Status Date / Time No Known Allergies Allergy Verified 09/08/18 21:56 - Home Medications Home Medications: Ambulatory Orders Bupropion HCl [Wellbutrin Xl -] 300 mg PO DAILY #0 tab 07/28/13 Ropinirole HCl [Requip -] 1 mg PO HS #0 tablet 07/28/13 Sertraline HCl [Zoloft -] 100 mg PO DAILY #0 tablet 07/28/13 Atorvastatin Ca [Lipitor] 40 mg PO HS 09/26/16 Fingolimod HCl [Gilenya] 0.5 mg PO DAILY 09/26/16 Zolpidem Tartrate [Ambien] 10 mg PO HS 09/26/16 Baclofen [Lioresal -] 20 mg PO BID 10/02/16 Propranolol HCl 20 mg PO Q8H 04/12/17 Alprazolam [Xanax] 0.25 mg PO BID tablet MDD .5 04/15/17 Gabapentin [Neurontin] 600 mg PO HS 08/16/17 Ibuprofen [Motrin -] 800 mg PO PRN PRN 08/16/17 Oxycodone HCl/Acetaminophen [Percocet 5-325 mg Tablet] 1.5 tab PO TID PRN Home Medications (free text): Gilenya 0.5mg po QD. Zoloft 100mg po QD. Welbutrin XL 300mg po QD. Lipitor 40mg po QD. Neurontin 600mg PM. Baclofen 20mg po BID. Requip 1mg po PM. Ambien 10mg po HS. Xanax 0.25mg po HS. Percocet 7.5mg po 2-3x prn. Motrin 800mg po prn. (verified per patient) Family Disease History - Family Disease History Family Disease History: Diabetes: Mother (HTN), Heart Disease: Grandparent (ME age 50-), Father (ME age 40), Mother, Other: Brother (Alive and Well), Sister (Fibromyalgia) Review of Systems - Review of Systems Constitutional: reports: No Symptoms Eyes: reports: No Symptoms HENT: reports: No Symptoms Neck: reports: No Symptoms Cardiovascular: reports: Chest Pain, Palpitations, Shortness of Breath Respiratory: reports: No Symptoms Gastrointestinal: reports: No Symptoms Genitourinary: reports: No Symptoms Breasts: reports: No Symptoms Reported Musculoskeletal: reports: No Symptoms Integumentary: reports: No Symptoms Neurological: reports: No Symptoms Endocrine: reports: No Symptoms Hematology/Lymphatic: reports: No Symptoms Psychiatric: reports: No Symptoms Pain Intensity: 7 Physical Examination Vital Signs: Vital Signs Temperature 99.0 F 09/08/18 21:53 Pulse Rate 77 09/08/18 23:45 Respiratory Rate 20 09/08/18 23:45 Blood Pressure 133/78 09/08/18 23:45 O2 Sat by Pulse Oximetry (%) 97 09/08/18 23:45 Constitutional: Yes: Anxious, Thin Eyes: Yes: WNL, Conjunctiva Clear, EOM Intact, PERRL HENT: Yes: WNL, Atraumatic, Normocephalic Neck: Yes: WNL, Supple, Trachea Midline Cardiovascular: Yes: WNL, Regular Rate and Rhythm, S1, S2 Respiratory: Yes: WNL, Regular, CTA Bilaterally Gastrointestinal: Yes: WNL, Normal Bowel Sounds, Soft Breast(s): Yes: WNL Extremities: Yes: WNL Edema: No Peripheral Pulses WNL: Yes Integumentary: Yes: Tattoos Neurological: Yes: WNL, Alert, Oriented, Cran Nerves II-XII Intact ...Motor Strength: WNL Psychiatric: Yes: WNL, Alert, Oriented Labs: CBC, BMP 09/08/18 22:25 09/08/18 22:25 Laboratory Results - last 24 hr 09/08/18 09/08/18 09/08/18 22:25 22:25 22:25 WBC 5.3 RBC 4.02 Hgb 11.6 Hct 34.0 MCV 84.7 MCH 28.9 MCHC 34.2 RDW 12.8 Plt Count 250 D MPV 8.5 Absolute Neuts (auto) 3.5 Neutrophils % 66.5 Lymphocytes % 16.8 D Monocytes % 12.9 H Eosinophils % 3.3 Basophils % 0.5 Nucleated RBC % 0 PT with INR 9.80 INR 0.83 Sodium 141 Potassium 3.4 L Chloride 106 Carbon Dioxide 30 Anion Gap 5 L BUN 23.6 H Creatinine 0.9 Est GFR (CKD-EPI)AfAm 86.41 Est GFR (CKD-EPI)NonAf 74.55 Random Glucose 99 Calcium 8.8 Magnesium 1.9 Total Bilirubin 0.2 AST 19 ALT 26 Alkaline Phosphatase 74 Creatine Kinase 76 Troponin I < 0.02 Total Protein 6.6 Albumin 4.1 TSH 2.44 Urine Color Urine Appearance Urine pH Ur Specific [place] Urine Protein Urine Glucose (UA) Urine Ketones Urine Blood Urine Nitrite Urine Bilirubin Urine Urobilinogen Ur Leukocyte Esterase Urine HCG, Qual 09/09/18 01:00 WBC RBC Hgb Hct MCV MCH MCHC RDW Plt Count MPV Absolute Neuts (auto) Neutrophils % Lymphocytes % Monocytes % Eosinophils % Basophils % Nucleated RBC % PT with INR INR Sodium Potassium Chloride Carbon Dioxide Anion Gap BUN Creatinine Est GFR (CKD-EPI)AfAm Est GFR (CKD-EPI)NonAf Random Glucose Calcium Magnesium Total Bilirubin AST ALT Alkaline Phosphatase Creatine Kinase Troponin I Total Protein Albumin TSH Urine Color Yellow Urine Appearance Clear Urine pH 6.0 Ur Specific [place] 1.021 Urine Protein Negative Urine Glucose (UA) Negative Urine Ketones Negative Urine Blood Negative Urine Nitrite Negative Urine Bilirubin Negative Urine Urobilinogen 1.0 Ur Leukocyte Esterase Negative Urine HCG, Qual Negative Intake & Output 06/09/07/18 09/08/18 09/09/18 23:59 23:59 23:59 23:59 Weight 68.039 kg Current Medications Generic Name Dose Route Start Last Admin Trade Name Gm PRN Reason Stop Dose Admin Acetaminophen 325 mg 09/09/18 08:06 Tylenol - PO Q8H PRN PAIN LEVEL 1-3 Alprazolam 0.25 mg 09/09/18 22:00 Xanax - PO HS ANU Atorvastatin Calcium 40 mg 09/09/18 22:00 Lipitor - PO HS ANU Baclofen 20 mg 09/09/18 10:00 Lioresal - PO BID ANU Bupropion HCl 300 mg 09/09/18 10:00 Wellbutrin Xl - PO DAILY ANU Docusate Sodium 100 mg 09/09/18 10:00 Colace - PO BID ANU Gabapentin 600 mg 09/09/18 22:00 Neurontin - PO HS ANU Non-Formulary Medication 0.5 mg 09/09/18 10:00 Fingolimod Hcl [Gilenya] PO DAILY ANU Oxycodone HCl 7.5 mg 09/09/18 08:04 Roxicodone - PO Q8H PRN PAIN LEVEL 7 - 10 Propranolol HCl 20 mg 09/09/18 22:00 Inderal - PO HS ANU Ropinirole HCl 1 mg 09/09/18 22:00 Requip - PO HS ANU Sertraline HCl 100 mg 09/09/18 10:00 Zoloft - PO DAILY ANU Zolpidem Tartrate 10 mg 09/09/18 22:00 Ambien - PO HS PRN INSOMNIA Prescription Monitoring Program Registry Others' Prescriptions Patient Name: Leyla Banks Date: 1970 Address: [address] [place] [address] Sex: Female Rx Written Rx Dispensed Drug Quantity Days Supply Prescriber Name 09/04/2018 09/04/2018 oxycodone-acetaminophen 7.5-325 mg tablet 90 30 Linda Trinh SENIOR ATTORNEY-C 08/08/2018 08/13/2018 alprazolam 0.25 mg tablet 90 30 Doe Manjarrez 03/20/2018 08/07/2018 zolpidem tartrate 10 mg tablet 30 30 Luis Fernando Vera MD 08/07/2018 08/07/2018 oxycodone-acetaminophen 7.5-325 mg tablet 90 30 Pugni, Linda SENIOR ATTORNEY-C 07/11/2018 07/11/2018 oxycodone-acetaminophen 7.5-325 mg tablet 90 30 Pugni, Linda SENIOR ATTORNEY-C 07/04/2018 07/04/2018 alprazolam 0.25 mg tablet 90 30 Chepuru, Yadagiri 06/13/2018 06/13/2018 oxycodone-acetaminophen 7.5-325 mg tablet 90 30 Posecion , Neo Frank 03/20/2018 05/22/2018 zolpidem tartrate 10 mg tablet 30 30 VeraLuis Fernando MD 05/20/2018 05/22/2018 alprazolam 0.25 mg tablet 90 30 Chepuru, Yadagiri 05/16/2018 05/17/2018 oxycodone-acetaminophen 7.5-325 mg tablet 90 30 Posecion , Neo Frank 04/18/2018 04/20/2018 oxycodone-acetaminophen 7.5-325 mg tablet 90 30 Pugni, Linda SENIOR ATTORNEY-C 03/31/2018 03/31/2018 alprazolam 0.25 mg tablet 90 30 Chepuru, Yadagiri 03/20/2018 03/24/2018 zolpidem tartrate 10 mg tablet 30 30 VeraLuis Fernando MD 03/24/2018 03/24/2018 oxycodone-acetaminophen 7.5-325 mg tablet 90 30 Pugni, Linda SENIOR ATTORNEY-C 02/21/2018 02/24/2018 alprazolam 0.25 mg tablet 30 30 Tammy Contreras MD 02/24/2018 02/24/2018 oxycodone-acetaminophen 7.5-325 mg tablet 90 30 Pugni, Linda SENIOR ATTORNEY-C Imaging - Results Chest X-ray: Image Reviewed EKG: Image Reviewed Problem List - Problems (1) Chest pain Code(s): R07.9 - CHEST PAIN, UNSPECIFIED Qualifiers: Chest pain type: unspecified Qualified Code(s): R07.9 - Chest pain, unspecified (2) Palpitations Code(s): R00.2 - PALPITATIONS (3) Neurogenic bladder Code(s): N31.9 - NEUROMUSCULAR DYSFUNCTION OF BLADDER, UNSPECIFIED (4) Multiple sclerosis Code(s): G35 - MULTIPLE SCLEROSIS Assessment/Plan This is a 48 y/o woman with a PMHx of MS, Neurogrnic Bladder, Anxiety. Placed in Telemetry Observation for Chest Pain r/o ACS for further evaluation of their emergent condition. Plan: Admit r/o ACS HEART Score 3 Continue cardiac monitoring Serial Enzymes EKG- reviewed Chest Xray image- no acute pathology Asa, Morphine given in ED Continue Asa Appreciate Cardiology consult Echo in am Monitor CBC, BMP Continue home meds Fall Precautions FEN- PO fluids as tolerated, Repleted K, monitor, Regular Diet DVT ppx, OOB, SCDs Dispo: Observation Visit type - Emergency Visit Emergency Visit: Yes ED Registration Date: 09/08/18 Care time: The patient presented to the Emergency Department on the above date and was hospitalized for further evaluation of their emergent condition. - New Patient This patient is new to me today: Yes Date on this admission: 09/09/18 - Critical Care Critical Care patient: No
[2018-09-09] MEDS ORDERED: POTASSIUM CHLORIDE TABS 10 MEQ TABLET.ER (FP) ONE (01:41)
[2018-09-09] MEDS ORDERED: ZOLPIDEM TARTRATE 5 MG TABLET ONE (01:41)
[2018-09-09] MEDS ORDERED: GABAPENTIN 100 MG CAPSULE (FP) ONE (01:42)
[2018-09-09 08:03] LABS: ANION GAP 7 MMOL/L (8-16); BLOOD UREA NITROGEN 17.7 mg/dL (7-18); CALCIUM 8.4 mg/dL (8.5-10.1); CHLORIDE 112 mmol/L (98-107); CO2 25 mmol/L (21-32); CREATININE 0.8 mg/dL (0.55-1.3); GLUCOSE,RANDOM 85 mg/dL (74-106); PHOSPHOROUS 4.1 mg/dL (2.5-4.9); SODIUM 144 mmol/L (136-145)
[2018-09-09] MEDS ORDERED: oxyCODONE HCL 5 MG TABLET PO PRN (08:04)
[2018-09-09] MEDS ORDERED: ACETAMINOPHEN 325 MG TABLET (FP) PO PRN (08:06)
[2018-09-09] MEDS ORDERED: oxyCODONE HCL 5 MG TABLET ONE (09:25)
[2018-09-09] MEDS ORDERED: SERTRALINE HCL 50 MG TABLET (FP) PO SCH (10:00)
[2018-09-09] MEDS ORDERED: BACLOFEN 10 MG TABLET (FP) PO SCH (10:00)
[2018-09-09] MEDS ORDERED: DOCUSATE SODIUM 100 MG CAPSULE (FP) PO SCH (10:00)
[2018-09-09] MEDS ORDERED: FINGOLIMOD HCL 0.5 MG PO SCH (10:00)
--- NOTE | 2018-09-09 10:13 | ECHO ---
Version: 1 Name: KETURAH PEREZ Exam: Adult Echocardiogram Study Date: 09/09/2018, 8:08 AM Age: 48 Years MMode/2D Measurements & Calculations IVSd: 0.89 cm LVIDs: 2.29 cm LVIDd: 3.6 cm LVPWd: 1.02 cm ACS: 2.04 cm LVOT diam: 1.96 cm Doppler Measurements & Calculations MV E max eric: 101.5 cm/sec Med E/e': 13.4 MV A max eric: 102.8 cm/sec Med Peak E' Eric: 7.6 cm/sec MV E/A: 0.99 Lat E/e': 7.5 Lat Peak E' Eric: 13.6 cm/sec Ao max P.9 mmHg BELLA(I,D): 2.24 cm Ao mean P.1 mmHg LV V1 mean: 62.7 cm/sec Ao V2 max: 121.6 cm/sec LV V1 mean P.68 mmHg Left Ventricle The left ventricular size, thickness and function are normal. Right Ventricle The right ventricle is normal in size and function. Atria Normal left and right atrial size and function. Mitral Valve The mitral valve is grossly normal. There is trace mitral regurgitation. Tricuspid Valve The tricuspid valve is not well visualized, but is grossly normal. There is trace tricuspid regurgit ation. Aortic Valve The aortic valve is normal in structure and function. Pulmonic Valve The pulmonic valve is not well seen, but is grossly normal. Great Vessels The aortic root is normal size. Pericardium/Pleura There is no pericardial effusion. Summary Statements The left ventricular size, thickness and function are normal The right ventricle is normal in size and function. Normal left and right atrial size and function. The mitral valve is grossly normal. There is trace mitral regurgitation. The tricuspid valve is not well visualized, but is grossly normal. There is trace tricuspid regurgitation. The aortic valve is normal in structure and function. EF 67% MD Howard Jurado 09/09/2018, 9:13 AM Ordering Physician: Rahel Feldman Performed By: Clare Galvez
--- NOTE | 2018-09-09 10:34 | EKG ---
Test Reason : Blood Pressure : / mmHG Vent. Rate : 076 BPM Atrial Rate : 076 BPM P-R Int : 144 ms QRS Dur : 084 ms QT Int : 380 ms P-R-T Axes : 045 063 046 degrees QTc Int : 427 ms NORMAL SINUS RHYTHM NORMAL ECG WHEN COMPARED WITH ECG OF 14-APR-2017 15:45, NO SIGNIFICANT CHANGE WAS FOUND Confirmed by Kwadwo Ramires MD ([id number]) on 09/09/2018 10:34:36 AM Referred By: Confirmed By:Kwadwo Ramires MD
--- NOTE | 2018-09-09 10:34 | EKG ---
Test Reason : Blood Pressure : / mmHG Vent. Rate : 065 BPM Atrial Rate : 065 BPM P-R Int : 138 ms QRS Dur : 084 ms QT Int : 400 ms P-R-T Axes : 055 080 074 degrees QTc Int : 416 ms NORMAL SINUS RHYTHM NORMAL ECG WHEN COMPARED WITH ECG OF 14-APR-2017 15:45, NO SIGNIFICANT CHANGE WAS FOUND Confirmed by Kwadwo Ramires MD ([id number]) on 09/09/2018 10:34:25 AM Referred By: Confirmed By:Kwadwo Ramires MD
--- NOTE | 2018-09-09 10:40 | CON.CARD ---
Consult Consult Specialty:: Cardiology Referred by:: Medicine Reason for Consultation:: chest pain - History of Present Illness Chief Complaint: chest pain, palpitations History of Present Illness: 48F h/o MS, anxiety, neurogenic bladder p/w one day of chest pain, palps, dyspnea. [place] pounding in her chest and a pain starting in her right chest that has lasted all day since yesterday, moved to the left chest now. Constant pain, better than yesterday but not resolved. Worse when changing position in bed. Not reproducible. Initially had dyspnea as well which has improved. Still with intermittent palps lasting a few minutes. Sees a photographic press screwmaker as outpatient, doesn't remember name. No recent cardiac testing. 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 NEUROGENIC BLADDER--SELF CATHERIZES) Renal/: Yes: Neurogenic Bladder, Renal Calculi, UTI Psych: Yes: Anxiety - Past Surgical History Past Surgical History: Yes: Tonsillectomy - Alcohol/Substance Use Hx Alcohol Use: No - Smoking History Smoking history: Current every day smoker Have you smoked in the past 12 months: Yes Aproximately how many cigarettes per day: 5 Home Medications - Allergies Allergies/Adverse Reactions: Allergies Allergy/AdvReac Type Severity Reaction Status Date / Time No Known Allergies Allergy Verified 09/08/18 21:56 - Home Medications Home Medications: Ambulatory Orders Bupropion HCl [Wellbutrin Xl -] 300 mg PO DAILY #0 tab 07/28/13 Ropinirole HCl [Requip -] 1 mg PO HS #0 tablet 07/28/13 Sertraline HCl [Zoloft -] 100 mg PO DAILY #0 tablet 07/28/13 Atorvastatin Ca [Lipitor] 40 mg PO HS 09/26/16 Fingolimod HCl [Gilenya] 0.5 mg PO DAILY 09/26/16 Zolpidem Tartrate [Ambien] 10 mg PO HS 09/26/16 Baclofen [Lioresal -] 20 mg PO BID 10/02/16 Propranolol HCl 20 mg PO Q8H 04/12/17 Alprazolam [Xanax] 0.25 mg PO BID tablet MDD .5 04/15/17 Gabapentin [Neurontin] 600 mg PO HS 08/16/17 Ibuprofen [Motrin -] 800 mg PO PRN PRN 08/16/17 Oxycodone HCl/Acetaminophen [Percocet 5-325 mg Tablet] 1.5 tab PO TID PRN Family Disease History - Family Disease History Family Disease History: Diabetes: Mother (HTN), Heart Disease: Grandparent ([place] age 50-), Father ([place] age 40), Mother, Other: Brother (Alive and Well), Sister (Fibromyalgia) Review of Systems - Review of Systems Constitutional: reports: No Symptoms Eyes: reports: No Symptoms HENT: reports: No Symptoms Neck: reports: No Symptoms Cardiovascular: reports: No Symptoms Respiratory: reports: No Symptoms Gastrointestinal: reports: No Symptoms Genitourinary: reports: No Symptoms Musculoskeletal: reports: No Symptoms Integumentary: reports: No Symptoms Neurological: reports: No Symptoms Endocrine: reports: No Symptoms Hematology/Lymphatic: reports: No Symptoms Psychiatric: reports: No Symptoms Vital Signs: Vital Signs Temperature 99.0 F 09/08/18 21:53 Pulse Rate 65 09/09/18 06:10 Respiratory Rate 17 09/09/18 06:10 Blood Pressure 101/67 09/09/18 06:10 O2 Sat by Pulse Oximetry (%) 99 09/09/18 07:00 Constitutional: Yes: Well Nourished, No Distress, Calm Eyes: Yes: Conjunctiva Clear, EOM Intact HENT: Yes: Atraumatic, Normocephalic Neck: Yes: Supple, Trachea Midline Respiratory: Yes: Regular, CTA Bilaterally Gastrointestinal: Yes: Normal Bowel Sounds, Soft Cardiovascular: Yes: Regular Rate and Rhythm JVD: No Carotid Bruit: No PMI: Non-Displaced Heart Sounds: Yes: S1, S2 Murmur: No: Systolic Murmur Musculoskeletal: No: Back Pain Extremities: No: Cold Edema: No Peripheral Pulses WNL: Yes Peripheral Pulses: 2+ Left Doralis Pedis, 2+ Right Dorsalis Pedis Integumentary: No: Jaundice Neurological: Yes: Alert, Oriented Psychiatric: No: Agitated - Other Data Labs, Other Data: CBC, BMP 09/09/18 06:35 09/09/18 06:35 INR, PTT INR 0.83 (0.83-1.09) 09/08/18 22:25 Troponin, BNP 09/08/18 09/09/18 22:25 06:35 Troponin I < 0.02 < 0.02 Troponin, BNP 09/08/18 09/09/18 22:25 06:35 Troponin I < 0.02 < 0.02 Assessment/Plan EKG: sinus, nl intervals, no ischemic changes echo: nl LV/RV function, tr MR CXR: no acute process tele: sinus chest pain - trop neg x2, EKG no ischemic changes - echo unremarkable - less likely ACS - history suggests musculoskeletal chest pain - no further inpatient cardiac workup, advised to follow up with outpatient photographic press screwmaker HLD - cont statin MS - manage per neurologist
[2018-09-09 10:43] VITALS: TEMP 98.2
--- NOTE | 2018-09-09 11:35 | DS ---
Physical Examination Vital Signs: Vital Signs Temperature 98.2 F 09/09/18 10:42 Pulse Rate 76 09/09/18 10:42 Respiratory Rate 22 H 09/09/18 10:42 Blood Pressure 112/77 09/09/18 10:42 O2 Sat by Pulse Oximetry (%) 99 09/09/18 10:42 Constitutional: Yes: No Distress, Calm Cardiovascular: Yes: Regular Rate and Rhythm Respiratory: Yes: CTA Bilaterally, Other (chest wall tenderness) Gastrointestinal: Yes: Normal Bowel Sounds, Soft. No: Tenderness Edema: No Labs: CBC, BMP 09/09/18 06:35 09/09/18 06:35 Discharge Summary Reason For Visit: PALPITATIONS,MULTIPLE SCLEROSIS, CHEST PAIN Current Active Problems Chest pain (Acute) Palpitations (Acute) Hospital Course: admitted for palpitations chest pain seen by cardiology cardiac enzymes negative echo done pt cleared by cardiology to dc home will need to follow up with own special effects makeup artist chest pain likely costochondritis-- advised naproxen prn, warm compresses, incentive spirometry follow up with cardiology to complete work up Condition: Good - Instructions Disposition: HOME - Home Medications Comprehensive Discharge Medication List: Ambulatory Orders Bupropion HCl [Wellbutrin Xl -] 300 mg PO DAILY #0 tab 07/28/13 Ropinirole HCl [Requip -] 1 mg PO HS #0 tablet 07/28/13 Sertraline HCl [Zoloft -] 100 mg PO DAILY #0 tablet 07/28/13 Atorvastatin Ca [Lipitor] 40 mg PO HS 09/26/16 Fingolimod HCl [Gilenya] 0.5 mg PO DAILY 09/26/16 Zolpidem Tartrate [Ambien] 10 mg PO HS 09/26/16 Baclofen [Lioresal -] 20 mg PO BID 10/02/16 Propranolol HCl 20 mg PO Q8H 04/12/17 Alprazolam [Xanax] 0.25 mg PO BID tablet MDD .5 04/15/17 Gabapentin [Neurontin] 600 mg PO HS 08/16/17 Ibuprofen [Motrin -] 800 mg PO PRN PRN 08/16/17 Oxycodone HCl/Acetaminophen [Percocet 5-325 mg Tablet] 1.5 tab PO TID PRN
[2018-09-09 11:58] VITALS: BP 107/62; PULSE 71
[2018-09-09] MEDS ORDERED: ZOLPIDEM TARTRATE 5 MG TABLET PO PRN (22:00)
[2018-09-09] MEDS ORDERED: rOPINIRole HCL 1 MG TABLET (FP) PO SCH (22:00)
[2018-09-09] MEDS ORDERED: ATORVASTATIN CA 40 MG TABLET (FP) PO SCH (22:00)
[2018-09-09] MEDS ORDERED: GABAPENTIN 300 MG CAPSULE (FP) PO SCH (22:00)
[2018-09-09] MEDS ORDERED: ALPRAZolam 0.25 MG TABLET PO SCH (22:00)
== END 2018-09-09 13:27 | disposition home or self-care (01) ==
LOC: JER 21:51 → JERBED 09-09 00:47
PROVIDERS: ADMIT Internal Medicine; ATTEND Internal Medicine
PROC: 3E033NZ Introduction of Analgesics, Hypnotics, Sedatives into Peripheral Vein, Percutaneous Approach (ICD-10-PCS; principal; 2018-09-09)
PROC: 3E0337Z Introduction of Electrolytic and Water Balance Substance into Peripheral Vein, Percutaneous Approach (ICD-10-PCS; 2018-09-09)
DX: R07.9 Chest pain, unspecified (principal); R00.2 Palpitations; N31.9 Neuromuscular dysfunction of bladder, unspecified; G35 Multiple sclerosis; E04.1 Nontoxic single thyroid nodule; F41.9 Anxiety disorder, unspecified; F17.210 Nicotine dependence, cigarettes, uncomplicated; E78.5 Hyperlipidemia, unspecified
CPT/HCPCS: 36415; 71046-TC-FY; 80048; 80053; 81003; 82550; 83735; 84100; 84443; 84484; 84703; 85025; 85610; 93005; 93010; 93306-TC; 99285-25; G0378; J0131; J0475

== ENCOUNTER 2019-04-02 18:53 | Inpatient (IN) | payer OTHER ==
[2019-04-02] MEDS ORDERED: SODIUM CHLORIDE 0.9% 1000 ML INFUS.BAG IV ONE ×2 (19:04→20:53)
[2019-04-02] MEDS ORDERED: KETOROLAC TROMETHAMINE 15 MG/ML VIAL IVPUSH ONE ×2 (19:04→20:53)
[2019-04-02] MEDS ORDERED: ONDANSETRON 4 MG/2 ML VIAL IVPUSH ONE ×2 (19:44→21:05)
[2019-04-02 19:55] LABS: BASO % 0.2 % (0-2.0); EOS % 2.4 % (0-4.5); HEMATOCRIT 36.8 % (32.4-45.2); HEMOGLOBIN 12.4 GM/dL (10.7-15.3); LYMPH % 11.3 % (8-40); MCH 28.8 pg (25.7-33.7); MCHC 33.8 g/dl (32.0-36.0); MEAN CELL VOLUME 85.1 fl (80-96); MEAN PLT VOLUME 8.8 fl (7.5-11.1); MONO % 13.1 % (3.8-10.2); PLATELET COUNT 210 K/MM3 (134-434); RBC 4.32 M/mm3 (3.60-5.2); WHITE BLOOD COUNT 4.6 K/mm3 (4.0-10.0)
[2019-04-02 19:56] LABS: URINE APPEARANCE CLEAR; URINE BILIRUBIN NEGATIVE (NEGATIVE); URINE COLOR DK YELLOW; URINE GLUCOSE (UA) NEGATIVE (NEGATIVE); URINE KETONE 1+ (NEGATIVE); URINE LEUK ESTERASE NEGATIVE (NEGATIVE); URINE NITRITE NEGATIVE (NEGATIVE); URINE PROTEIN NEGATIVE (NEGATIVE)
[2019-04-02] MEDS ORDERED: KETOROLAC TROMETHAMINE 15 MG/ML VIAL ONE ×2 (19:58→21:56)
[2019-04-02] MEDS ORDERED: ONDANSETRON 4 MG/2 ML VIAL ONE ×2 (19:59→21:14)
--- NOTE | 2019-04-02 19:59 | PDOC ---
Documentation entered by Howard Spence SCRIBE, acting as scribe for Nelida Oconnor DO. Nelida Oconnor DO: This documentation has been prepared by the Jordy beth Daniel, SCRIBE, under my direction and personally reviewed by me in its entirety. I confirm that the documentation accurately reflects all work, treatment, procedures, and medical decision making performed by me. History of Present Illness - General Chief Complaint: Pain, Acute Stated Complaint: FEVER History Source: Patient Exam Limitations: No Limitations - History of Present Illness Initial Comments: 04/02/19 19:13 The patient is a 49 year old female with a past medical history of MS, (last flare up 1 year ago, requiring hospitalization), urinary catheterization due to her MS, chronic back pain, kidney stones, and frequent UTIs here today for evaluation of fever and nausea. The patient reports that she has had 2 days of fever with a maximum temperature of 102 yesterday and a temp 99.5 today. She also notes nausea, headache, general body aches, right sided abdominal pain, and suprapubic pain worse with urination especially when she caths herself. She reports taking tylenol 1.5 hours prior to arrival. Patient denies headache, lightheadedness. Denies chills. Denies chest pain, shortness of breath. Denies vomiting, diarrhea. Allergies: NKA Surgical history: ovarian cyst removal, tonsillectomy PCP: Tammy Contreras Neurologist: Luis Fernando Vera Past History - Past Medical History Allergies/Adverse Reactions: Allergies Allergy/AdvReac Type Severity Reaction Status Date / Time No Known Allergies Allergy Verified 04/02/19 19:01 Home Medications: Ambulatory Orders Bupropion HCl [Wellbutrin Xl -] 300 mg PO DAILY #0 tab 07/28/13 Ropinirole HCl [Requip -] 1 mg PO HS #0 tablet 07/28/13 Sertraline HCl [Zoloft -] 100 mg PO DAILY #0 tablet 07/28/13 Atorvastatin Ca [Lipitor] 40 mg PO HS 09/26/16 Fingolimod HCl [Gilenya] 0.5 mg PO DAILY 09/26/16 Zolpidem Tartrate [Ambien] 10 mg PO HS 09/26/16 Baclofen [Lioresal -] 20 mg PO BID 10/02/16 Propranolol HCl 20 mg PO Q8H 04/12/17 Alprazolam [Xanax] 0.25 mg PO BID tablet MDD .5 04/15/17 Gabapentin [Neurontin] 600 mg PO HS 08/16/17 Ibuprofen [Motrin -] 800 mg PO PRN PRN 08/16/17 Oxycodone HCl/Acetaminophen [Percocet 5-325 mg Tablet] 1.5 tab PO TID PRN COPD: No GI Disorders: Yes (NEUROGENIC BLADDER. STRAIGHT CATHS.) Hypercholesterolemia: Yes Other medical history: MULTIPLE SCLEROSIS - Psycho Social/Smoking Cessation Hx Smoking History: Former smoker Have you smoked in the past 12 months: No Number of Cigarettes Smoked Daily: 5 Information on smoking cessation initiated: No 'Breaking Loose' booklet given: 03/20/13 Hx Alcohol Use: No Drug/Substance Use Hx: No Substance Use Type: None Hx Substance Use Treatment: No Review of Systems - Review of Systems Able to Perform ROS?: Yes Comments:: 04/02/19 19:14 GENERAL/CONSTITUTIONAL: +fever. No chills. No weakness. HEAD, EYES, EARS, NOSE AND THROAT: No change in vision. No ear pain or discharge. No sore throat. GASTROINTESTINAL: +nausea. +right abdominal pain. No vomiting, diarrhea or constipation. GENITOURINARY: No dysuria, frequency, or change in urination. CARDIOVASCULAR: No chest pain or shortness of breath. RESPIRATORY: No cough, wheezing, or hemoptysis. MUSCULOSKELETAL: No joint or muscle swelling or pain. No neck or back pain. SKIN: No rash NEUROLOGIC: No headache, vertigo, loss of consciousness, or change in strength/ sensation. ENDOCRINE: No increased thirst. No abnormal weight change. HEMATOLOGIC/LYMPHATIC: No anemia, easy bleeding, or history of blood clots. ALLERGIC/IMMUNOLOGIC: No hives or skin allergy. *Physical Exam - Vital Signs Last Vital Signs Temp Pulse Resp BP Pulse Ox 99.2 F 84 18 127/71 100 04/02/19 18:59 04/02/19 18:59 04/02/19 18:59 04/02/19 18:59 04/02/19 18:59 - Physical Exam 04/02/19 19:14 Constitutional: Awake, alert, oriented. No acute distress. Head: Normocephalic. Atraumatic Eyes: PERRL. EOMI. Conjunctivae are not pale. ENT: Mucous membranes are moist and intact. Posterior pharynx without exudates or erythema. Uvula midline. Neck: Supple. Full ROM. No lymphadenopathy. Cardiovascular: Regular rate. Regular rhythm. S1, S2 regular. Distal pulses are 2+ and symmetric. Pulmonary/Chest: No evidence of respiratory distress. Clear to auscultation bilaterally No wheezing, rales or rhonchi. Abdominal: +right upper quadrant abdominal tenderness. +suprapubic tenderness. Soft and non-distended. No rebound, guarding or rigidity. No organomegaly. No palpable masses. Good bowel sounds. Back: No CVA tenderness. Musculoskeletal: No edema. No cyanosis. No clubbing. Full range of motion in all extremities. Nocalf tenderness. Radial/pedal pulses are intact and 2+ bilaterally Skin: Skin is warm and dry. No petechiae. No purpura. Neurological: Alert and oriented to person, place, and time. Cranial nerves II -XII are grossly intact. Normal speech. Strength is grossly symmetric. No sensory deficits. Psychiatric: Good eye contact. Normal interaction, affect and behavior. Heart Score/ECG Review - ECG Intrepretation Comment:: 04/02/19 20:08 sinus at 70, nl axis, nl interval, no acute st/t wave findings ED Treatment Course - LABORATORY CBC & Chemistry Diagram: 04/02/19 19:31 04/02/19 19:31 - RADIOLOGY Radiology Studies Ordered: Category Date Time Status CHEST X-RAY PORTABLE* [RAD] Stat Radiology 04/02/19 19:03 Completed KIDNEY / RENAL US [US] Stat Ultrasound 04/02/19 19:05 Ordered Medical Decision Making - Medical Decision Making 04/02/19 19:53 a/p: 49yo female with hx of MS and recurrent kidney infections who follows with Dr. Tammy martinez and a neurologist at [facility] presents for eval of fever/rigors since saturday and R flank pain -suspect uti and poss pyelo -pt has a neurogenic bladder -pt took tylenol just sea captain -pt c/o nausea -took tylenol sea captain -will send labs, cultures, ekg, cxr -pt straight caths for ua -will send ua and culture -will monitor and reassess 04/02/19 20:08 ua neg no elevated wbc 04/02/19 20:45 cxr clear labs reviewed pending ultrasound 04/02/19 21:11 pt had a flu swab yesterday that was negative at urgent care 04/02/19 22:12 mild hydro on R kidney on ultrasound will send for ct 04/03/19 00:01 pt with persistent nausea persistent abd pain cultures pending microblog sent to [facility] for admission 04/03/19 00:13 pt with dysuria and pain with cathing- hx of uti ecoli pt with bladder pain, will start abx for suspected uti 04/03/19 00:36 case discussed with Serene IRENE from [facility] who accepts pt under dr. mariano Discharge - Discharge Information Problems reviewed: Yes Clinical Impression/Diagnosis: UTI (urinary tract infection), Intractable abdominal pain, Intractable nausea and vomiting Condition: Fair - Admission Yes - Follow up/Referral Referrals: Tammy Contreras MD [Primary Care Provider] - - Patient Discharge Instructions - Post Discharge Activity
[2019-04-02 20:27] LABS: ALBUMIN 3.8 g/dl (3.4-5.0); BILIRUBIN,TOTAL 0.3 mg/dL (0.2-1); BLOOD UREA NITROGEN 22.9 mg/dL (7-18); CALCIUM 9.1 mg/dL (8.5-10.1); CREATININE 0.9 mg/dL (0.55-1.3); POTASSIUM 4.4 mmol/L (3.5-5.1); TOT PROT 6.6 g/dl (6.4-8.2)
[2019-04-02] MEDS ORDERED: ACETAMINOPHEN 1000 MG/100 ML VIAL (NON FORMULARY) IVPB ONE (22:11)
[2019-04-02] MEDS ORDERED: ACETAMINOPHEN INJECTION 100 ML IVPB ONE (22:19)
[2019-04-02] MEDS ORDERED: morphine CARPU-JECT 4 MG/1 ML DISP.SYRIN IVPUSH ONE (23:19)
[2019-04-02] MEDS ORDERED: morphine SULFATE 4 MG/ML VIAL ONE (23:20)
[2019-04-03] MEDS ORDERED: METOCLOPRAMIDE HCL INJECTION 10 MG/2 ML VIAL IVPUSH ONE (00:02)
[2019-04-03] MEDS ORDERED: CEFTRIAXONE 1 GM in DEXTROSE 5%-WATER - 100 ML IVPB ONE (00:12)
[2019-04-03] MEDS ORDERED: METOCLOPRAMIDE HCL INJECTION 10 MG/2 ML VIAL ONE (00:13)
[2019-04-03] MEDS ORDERED: CEFTRIAXONE 1 GM/50 ML BAG ONE (00:19)
--- NOTE | 2019-04-03 01:09 | HP ---
CHIEF COMPLAINT:fever of 102 since Saturday, nausea, lower abdominal pain and lower back pain and suprapubic pain PCP:Dr. Tammy Iglesias Neurologist: Dr. Luis Fernando Vera at [facility] HISTORY OF PRESENT ILLNESS: 49 year old female with a past medical history of multiple sclerosis (last flare up 1 year ago, requiring hospitalization at [facility]), self urinary catheterizations due to neurogenic bladder, chronic back pain, kidney stones, and frequent UTIs who presents today for an evaluation as she has symptoms of fever, nausea, lower abdominal pain and back pain. She reported she has had fever on Saturday with a maximum temperature of 102 and a low grade temperature of 99.5 today. She also reported headache, general body aches, bilateral leg pain and weakness , right sided abdominal pain with radiation to her back and suprapubic pain which is worse especially when she self catherizes herself. She denies chest pain or shortness of breath. as reporetd she had a negative flu swab done at Urgent Care. ER course was notable for: (1) normal WBC, CXR unremarkable, UA negative, elevated lactic acid of 2.5 (2) Renal US with mild dilatation of right renal pelvis, no hydronephrosis (3) CT scan of abdomen and pelvis with no acute findings . (4) Received one dose of IV Rocephin and IV toradol and morphine for pain and IV zofran for nausea Patient is being admitted to Medicine Service for further medical evaluation and management. Recent Travel: denies PAST MEDICAL HISTORY: multiple sclerosis chronic back pain kidney stones frequent UTI PAST SURGICAL HISTORY: ovarian cyst removal tonsillectomy Social History: Smoking:former smoker Alcohol:no Drugs: no Allergies No Known Allergies Allergy (Verified 04/02/19 19:01) HOME MEDICATIONS: Home Medications Medication Instructions Recorded Bupropion HCl [Wellbutrin Xl -] 300 mg PO DAILY #0 tab 07/28/13 Ropinirole HCl [Requip -] 1 mg PO HS #0 tablet 07/28/13 Sertraline HCl [Zoloft -] 100 mg PO DAILY #0 tablet 07/28/13 Atorvastatin Ca [Lipitor] 40 mg PO HS 09/26/16 Fingolimod HCl [Gilenya] 0.5 mg PO DAILY 09/26/16 Zolpidem Tartrate [Ambien] 10 mg PO HS 09/26/16 Baclofen [Lioresal -] 20 mg PO BID 10/02/16 Propranolol HCl 20 mg PO Q8H 04/12/17 Alprazolam [Xanax] 0.25 mg PO BID tablet MDD .5 04/15/17 Gabapentin [Neurontin] 600 mg PO HS 08/16/17 Ibuprofen [Motrin -] 800 mg PO PRN PRN 08/16/17 Oxycodone HCl/Acetaminophen 1.5 tab PO TID PRN 09/09/18 [Percocet 5-325 mg Tablet] REVIEW OF SYSTEMS CONSTITUTIONAL: Absent: fever, chills, diaphoresis, generalized weakness, malaise, loss of appetite, weight change HEENT: Absent: rhinorrhea, nasal congestion, throat pain, throat swelling, difficulty swallowing, mouth swelling, ear pain, eye pain, visual changes CARDIOVASCULAR: Absent: chest pain, syncope, palpitations, irregular heart rate, lightheadedness , peripheral edema RESPIRATORY: Absent: cough, shortness of breath, dyspnea with exertion, orthopnea, wheezing, stridor, hemoptysis GASTROINTESTINAL: Absent: abdominal pain, abdominal distension, nausea, vomiting, diarrhea, constipation, melena, hematochezia GENITOURINARY: Absent: dysuria, frequency, urgency, hesitancy, hematuria, flank pain, genital pain MUSCULOSKELETAL: Absent: myalgia, arthralgia, joint swelling, back pain, neck pain, BLE weakness SKIN: Absent: rash, itching, pallor HEMATOLOGIC/IMMUNOLOGIC: Absent: easy bleeding, easy bruising, lymphadenopathy, frequent infections ENDOCRINE: Absent: unexplained weight gain, unexplained weight loss, heat intolerance, cold intolerance NEUROLOGIC: Absent: headache, focal weakness or paresthesias, dizziness, unsteady gait, seizure, mental status changes, bladder or bowel incontinence PSYCHIATRIC: Absent: anxiety, depression, suicidal or homicidal ideation, hallucinations. PHYSICAL EXAMINATION Vital Signs - 24 hr 04/02/19 04/03/19 18:59 00:59 Temperature 99.2 F Pulse Rate 84 Pulse Rate [ 77 Right Radial] Respiratory 18 18 Rate Blood Pressure 127/71 Blood Pressure 117/70 [Left Arm] O2 Sat by Pulse 100 98 Oximetry (%) GENERAL: awake alert and fully oriented no acute distress HEAD: normal with no signs of trauma EYES: pupils equal round and reactive to light EARS, NOSE, THROAT: ears normal nares patent oropharynx clear without exudates NECK: normal range of motion LUNGS: breath sounds clear to auscultation bilaterally no wheezes no crackles no accessory muscle use HEART: regular rate and rhythm normal S1 and S2 ABDOMEN: tender on light palpation to RLQ not distended, normoactive bowel sounds MUSCULOSKELETAL: normal range of motion at all joints no bony deformities or tenderness no CVA tenderness UPPER EXTREMITIES: 2+ pulses warm well-perfused no cyanosis LOWER EXTREMITIES: 2+ pulses warm well-perfused no calf tenderness no pitting edema NEUROLOGICAL: normal speech no facial droop speech clear PSYCHIATRIC: cooperative good eye contact appropriate mood and affect SKIN: warm dry normal turgor no rashes or lesions noted normal capillary refill. Laboratory Results - last 24 hr 04/02/19 04/02/19 04/02/19 19:31 19:31 19:31 WBC 4.6 RBC 4.32 Hgb 12.4 Hct 36.8 MCV 85.1 MCH 28.8 MCHC 33.8 RDW 13.0 Plt Count 210 MPV 8.8 Absolute Neuts (auto) 3.4 Neutrophils % 73.0 Lymphocytes % 11.3 D Monocytes % 13.1 H Eosinophils % 2.4 Basophils % 0.2 Nucleated RBC % 0 Sodium 140 Potassium 4.4 Chloride 108 H Carbon Dioxide 28 Anion Gap 5 L BUN 22.9 H Creatinine 0.9 Est GFR (CKD-EPI)AfAm 85.80 Est GFR (CKD-EPI)NonAf 74.03 Random Glucose 100 Lactic Acid 2.5 H* Calcium 9.1 Total Bilirubin 0.3 AST 40 H ALT 37 Alkaline Phosphatase 86 Total Protein 6.6 Albumin 3.8 Urine Color Urine Appearance Urine pH Ur Specific [place] Urine Protein Urine Glucose (UA) Urine Ketones Urine Blood Urine Nitrite Urine Bilirubin Urine Urobilinogen Ur Leukocyte Esterase 04/02/19 19:31 WBC RBC Hgb Hct MCV MCH MCHC RDW Plt Count MPV Absolute Neuts (auto) Neutrophils % Lymphocytes % Monocytes % Eosinophils % Basophils % Nucleated RBC % Sodium Potassium Chloride Carbon Dioxide Anion Gap BUN Creatinine Est GFR (CKD-EPI)AfAm Est GFR (CKD-EPI)NonAf Random Glucose Lactic Acid Calcium Total Bilirubin AST ALT Alkaline Phosphatase Total Protein Albumin Urine Color Dk yellow Urine Appearance Clear Urine pH 5.0 Ur Specific [place] 1.035 Urine Protein Negative Urine Glucose (UA) Negative Urine Ketones 1+ H Urine Blood Negative Urine Nitrite Negative Urine Bilirubin Negative Urine Urobilinogen 1.0 Ur Leukocyte Esterase Negative ASSESSMENT/PLAN: Mrs. Flores is a 49 year old female with a past medical history significant for multiple sclerosis (in remission) with self urinary catheterizations for neurogenic bladder, chronic back pain, kidney stones, and frequent UTIs who presented with symptoms of fever, nausea, lower right sided abdominal pain with radiation to her lower back ,suprapubic pain, headache and bilateral lower extremity pain and weakness. Patient was admitted to Medicine Service for further medical evaluation and management. #1 Fever of Unknown Etiology /Possible UTI (hx of recurrent UTI with E. Coli) Workup w/ normal WBC, UA negative, elevated lactic acid of 2.5, received [address] scan of abdomen negative. Renal US with mild dilatation of right renal pelvis Received one dose of IV Rocephin 1gm. Currently afebrile and bp normotensive --Continue with IV Rocephin 1 gm daily --Urine and blood cultures pending --Repeat lactic acid --ID consulted- Dr. Rosas --Continue with zofran prn, monitor QTC on EKG for prolongation --Continue with home dosage of percocet #2 Multiple Sclerosis Remission Continue with baclofen, percocet, requip, and gabapentin Patient may self catherize herself for neurogenic bladder #3 Hyperlipidemia LFT's normal Continue with statin therapy #4 Anxiety/Depression Continue with zoloft DVT Lovenox 30mg BID TEDS/SCD's FEN IVF NS at 60cc/hr low sodium diet Visit type - Emergency Visit Emergency Visit: Yes ED Registration Date: 04/03/19 Care time: The patient presented to the Emergency Department on the above date and was hospitalized for further evaluation of their emergent condition. - New Patient This patient is new to me today: Yes Date on this admission: 04/03/19 - Critical Care Critical Care patient: No
[2019-04-03] MEDS ORDERED: SODIUM CHLORIDE 1,000 ML IV SCH (01:45)
[2019-04-03] MEDS ORDERED: ZOLPIDEM TARTRATE 5 MG TABLET PO PRN (01:46)
[2019-04-03] MEDS ORDERED: ZOLPIDEM TARTRATE 5 MG TABLET PO ONE (02:18)
[2019-04-03] MEDS: ONDANSETRON 4 MG/2 ML VIAL IVPUSH PRN ×4 (02:31→23:27)
[2019-04-03] MEDS: ACETAMINOPHEN 500 MG TABLET (FP) PO PRN ×4 (02:32→20:31)
[2019-04-03] MEDS: oxyCODONE HCL 5 MG TABLET PO PRN ×4 (02:32→20:39)
[2019-04-03 04:39] VITALS: BMI 25.0
[2019-04-03] MEDS ORDERED: ACETAMINOPHEN 325 MG TABLET (FP) PO ONE (07:29)
[2019-04-03 07:45] LABS: BASO % 0.1 % (0-2.0); EOS % 2.3 % (0-4.5); HEMATOCRIT 29.6 % (32.4-45.2); HEMOGLOBIN 10.2 GM/dL (10.7-15.3); LYMPH % 7.3 % (8-40); MCH 29.2 pg (25.7-33.7); MCHC 34.6 g/dl (32.0-36.0); MEAN CELL VOLUME 84.4 fl (80-96); MEAN PLT VOLUME 8.6 fl (7.5-11.1); MONO % 15.6 % (3.8-10.2); NEUT % 74.7 % (42.8-82.8); PLATELET COUNT 158 K/MM3 (134-434); RBC 3.51 M/mm3 (3.60-5.2); RDW 12.9 % (11.6-15.6); WHITE BLOOD COUNT 5.9 K/mm3 (4.0-10.0)
[2019-04-03 08:11] LABS: BLOOD UREA NITROGEN 16.9 mg/dL (7-18); CALCIUM 7.9 mg/dL (8.5-10.1); CREATININE 0.8 mg/dL (0.55-1.3); POTASSIUM 3.6 mmol/L (3.5-5.1)
[2019-04-03] MEDS ORDERED: DEXTROSE 5%-WATER - 50 ML IVPB ONE (09:02)
[2019-04-03] MEDS ORDERED: cefTRIAXone SODIUM 1 GM VIAL ONE (09:02)
[2019-04-03] MEDS: ENOXAPARIN NA (PORCINE) 40 MG/0.4 ML DISP.SYRIN SQ SCH (09:15)
[2019-04-03] MEDS: BACLOFEN 10 MG TABLET (FP) PO SCH ×2 (09:15→21:53)
[2019-04-03] MEDS: CEFTRIAXONE 1 GM in DEXTROSE 5%-WATER - 50 ML IVPB SCH (09:15)
[2019-04-03] MEDS ORDERED: ALPRAZolam 0.25 MG TABLET PO SCH (10:00)
[2019-04-03] MEDS ORDERED: SERTRALINE HCL 50 MG TABLET (FP) PO SCH ×3 (10:00→13:15)
[2019-04-03] MEDS ORDERED: ENOXAPARIN NA (PORCINE) 30 MG/0.3 ML DISP.SYRIN SQ SCH (10:00)
[2019-04-03] MEDS ORDERED: FINGOLIMOD HCL 0.5 MG PO SCH (10:00)
[2019-04-03] MEDS ORDERED: ONDANSETRON 4 MG/2 ML VIAL IVPUSH ONE (11:15)
[2019-04-03] MEDS ORDERED: ALPRAZolam 0.25 MG TABLET PO PRN ×2 (11:33→13:17)
--- NOTE | 2019-04-03 11:39 | PN ---
Progress Note, Physician History of Present Illness: pt seen/ examined. Chart is reviewed awake/ comfortable but still complains of discomfort no distress afebrile - Current Medication List Current Medications: Active Medications Acetaminophen (Tylenol -) 500 mg PO Q8H PRN PRN Reason: PAIN LEVEL 7 - 10 Last Admin: 04/03/19 10:31 Dose: 500 mg Alprazolam (Xanax -) 0.25 mg PO DAILY PRN PRN Reason: ANXIETY Atorvastatin Calcium (Lipitor -) 40 mg PO HS [facility] Baclofen (Lioresal -) 20 mg PO BID [facility] Last Admin: 04/03/19 09:15 Dose: 20 mg Bupropion HCl (Wellbutrin Xl -) 300 mg PO DAILY [facility] Enoxaparin Sodium (Lovenox -) 40 mg SQ DAILY [facility] Last Admin: 04/03/19 09:15 Dose: 40 mg Gabapentin (Neurontin -) 600 mg PO HS [facility] Gabapentin (Neurontin -) 300 mg PO DAILY [facility] Sodium Chloride (Normal Saline -) 1,000 mls @ 50 mls/hr IV ASDIR [facility] Stop: 04/04/19 01:42 Last Admin: 04/03/19 02:33 Dose: 50 mls/hr Ceftriaxone Sodium 1 gm/ (Dextrose) 50 mls @ 100 mls/hr IVPB DAILY [facility]; Protocol Last Admin: 04/03/19 09:15 Dose: 100 mls/hr Non-Formulary Medication (Fingolimod Hcl [Gilenya]) 0.5 mg PO DAILY [facility] Ondansetron HCl (Zofran Injection) 4 mg IVPUSH Q6H PRN PRN Reason: NAUSEA AND/OR VOMITING Last Admin: 04/03/19 08:00 Dose: 4 mg Oxycodone HCl (Roxicodone -) 5 mg PO Q8H PRN PRN Reason: PAIN LEVEL 7 - 10 Last Admin: 04/03/19 10:32 Dose: 5 mg Propranolol HCl (Inderal -) 20 mg PO TID [facility] Stop: 04/03/19 22:00 Last Admin: 04/03/19 05:03 Dose: Not Given Propranolol HCl (Inderal -) 20 mg PO DAILY [facility] Ropinirole HCl (Requip -) 1 mg PO HS [facility] Sertraline HCl (Zoloft -) 100 mg PO DAILY [facility] Last Admin: 01/17/20 09:15 Dose: 100 mg - Objective Vital Signs: Vital Signs Temperature 98.5 F 04/03/19 06:12 Pulse Rate 73 04/03/19 06:12 Respiratory Rate 18 04/03/19 06:12 Blood Pressure 99/61 04/03/19 06:12 O2 Sat by Pulse Oximetry (%) 97 04/03/19 02:00 Constitutional: Yes: No Distress, Calm Eyes: Yes: Conjunctiva Clear Neck: Yes: Supple Cardiovascular: Yes: Regular Rate and Rhythm Respiratory: Yes: CTA Bilaterally Gastrointestinal: Yes: Normal Bowel Sounds, Soft Edema: No Neurological: Yes: Alert Labs: CBC, BMP 04/03/19 07:13 04/03/19 07:13 Problem List - Problems (1) Intractable nausea and vomiting Code(s): R11.2 - NAUSEA WITH VOMITING, UNSPECIFIED (2) Abdominal pain Code(s): R10.9 - UNSPECIFIED ABDOMINAL PAIN (3) Neurogenic bladder Code(s): N31.9 - NEUROMUSCULAR DYSFUNCTION OF BLADDER, UNSPECIFIED Assessment/Plan In Summary 49 year old female with a past medical history of multiple sclerosis (last flare up 1 year ago, requiring hospitalization at [facility]), self urinary catheterizations due to neurogenic bladder, chronic back pain, kidney stones, and frequent UTIs who presents today for an evaluation as she has symptoms of fever, nausea, lower abdominal pain and back pain. She reported she has had fever on Saturday with a maximum temperature of 102 and a low grade temperature of 99.5 today. She also reported headache, general body aches, bilateral leg pain and weakness , right sided abdominal pain with radiation to her back and suprapubic pain which is worse especially when she self catherizes herself. She denies chest pain or shortness of breath. as reporetd she had a negative flu swab done at Urgent Care. ER course was notable for: (1) normal WBC, CXR unremarkable, UA negative, elevated lactic acid of 2.5 (2) Renal US with mild dilatation of right renal pelvis, no hydronephrosis (3) CT scan of abdomen and pelvis with no acute findings . (4) Received one dose of IV Rocephin and IV toradol and morphine for pain and IV zofran for nausea PAST MEDICAL HISTORY: multiple sclerosis chronic back pain kidney stones frequent UTI PAST SURGICAL HISTORY: ovarian cyst removal tonsillectomy Agree with current management abx pt gave list of meds- she is on Updated but percocet held for now f/u cultures abx f/u labs will follow D/W RN also
--- NOTE | 2019-04-03 12:27 | CON.ID ---
Consult Consult Specialty:: infectious diseases Referred by:: fransico Reason for Consultation:: weakness,nausea,r/o uti - History of Present Illness Chief Complaint: weakness,nausea History of Present Illness: 49 year old female with a past medical history of multiple sclerosis (last flare up 1 year ago, requiring hospitalization at [facility]), self urinary catheterizations due to neurogenic bladder, chronic back pain, kidney stones, and frequent UTIs coming to the hospital for fever nausea and abd pain according to the patient she was also spiking fever which was associated with fever and chills She also reported headache, general body aches, bilateral leg pain and weakness , right sided abdominal pain with radiation to her back and suprapubic pain which is worse especially when she self catherizes herself. patient had gone to the urgent care mentions that she has not taken the flu vaccine and she is flu negative still continues to have abd pain - History Source History Provided By: Patient Limitations to Obtaining History: No Limitations - Past Medical History DIRECTOR OF CAREER SERVICES: Yes: Multiple Sclerosis, Other (MS. NEUROGENIC BLADDER--SELF CATHERIZES) Renal/: Yes: Neurogenic Bladder, Renal Calculi, UTI Psych: Yes: Anxiety - Past Surgical History Past Surgical History: Yes: Tonsillectomy - Alcohol/Substance Use Hx Alcohol Use: No - Smoking History Smoking history: Former smoker Have you smoked in the past 12 months: No Aproximately how many cigarettes per day: 5 If you are a former smoker, when did you quit?: 1 year ago Home Medications - Allergies Allergies/Adverse Reactions: Allergies Allergy/AdvReac Type Severity Reaction Status Date / Time No Known Allergies Allergy Verified 04/02/19 19:01 - Home Medications Home Medications: Ambulatory Orders Bupropion HCl [Wellbutrin Xl -] 300 mg PO DAILY #0 tab 07/28/13 Ropinirole HCl [Requip -] 1 mg PO HS #0 tablet 07/28/13 Sertraline HCl [Zoloft -] 100 mg PO DAILY #0 tablet 07/28/13 Atorvastatin Ca [Lipitor] 40 mg PO HS 09/26/16 Fingolimod HCl [Gilenya] 0.5 mg PO DAILY 09/26/16 Zolpidem Tartrate [Ambien] 10 mg PO HS 09/26/16 Baclofen [Lioresal -] 20 mg PO BID 10/02/16 Propranolol HCl 20 mg PO HS 04/12/17 Alprazolam [Xanax] 0.25 mg PO BID tablet MDD .5 04/15/17 Gabapentin [Neurontin] 600 mg PO HS 08/16/17 Ibuprofen [Motrin -] 800 mg PO PRN PRN 08/16/17 Oxycodone HCl/Acetaminophen [Percocet 5-325 mg Tablet] 1.5 tab PO TID PRN Review of Systems - Review of Systems Constitutional: reports: Fever, Other (sweating,chills) HENT: reports: No Symptoms Neck: reports: No Symptoms Cardiovascular: reports: No Symptoms Respiratory: reports: No Symptoms Gastrointestinal: reports: No Symptoms Genitourinary: reports: No Symptoms Musculoskeletal: reports: No Symptoms Integumentary: reports: No Symptoms Neurological: reports: No Symptoms Endocrine: reports: No Symptoms Hematology/Lymphatic: reports: No Symptoms Psychiatric: reports: No Symptoms Physical Exam Vital Signs: Vital Signs Temperature 98.6 F 04/03/19 09:00 Pulse Rate 71 04/03/19 09:00 Respiratory Rate 18 04/03/19 09:00 Blood Pressure 98/55 L 04/03/19 09:00 O2 Sat by Pulse Oximetry (%) 98 04/03/19 09:00 Constitutional: Yes: Well Nourished, No Distress, Calm HENT: Yes: Atraumatic Cardiovascular: Yes: Regular Rate and Rhythm Respiratory: Yes: Regular, CTA Bilaterally Gastrointestinal: Yes: Normal Bowel Sounds, Soft Musculoskeletal: Yes: WNL Extremities: Yes: WNL Neurological: Yes: Alert, Oriented Psychiatric: Yes: Alert, Oriented Labs: CBC, BMP 04/03/19 07:13 04/03/19 07:13 Imaging - Results Chest X-ray: Report Reviewed, Image Reviewed Cat Scan: Report Reviewed, Image Reviewed Ultrasound: Report Reviewed, Image Reviewed Assessment/Plan Problem List - Problems (1) Intractable nausea and vomiting Code(s): R11.2 - NAUSEA WITH VOMITING, UNSPECIFIED (2) Abdominal pain Code(s): R10.9 - UNSPECIFIED ABDOMINAL PAIN (3) Neurogenic bladder Code(s): N31.9 - NEUROMUSCULAR DYSFUNCTION OF BLADDER, UNSPECIFIED fever chills Assessment/Plan await for all the cx continue ceftriaxone hydration rest as per the team
--- NOTE | 2019-04-03 13:26 | EKG ---
Test Reason : Blood Pressure : / mmHG Vent. Rate : 070 BPM Atrial Rate : 070 BPM P-R Int : 144 ms QRS Dur : 086 ms QT Int : 412 ms P-R-T Axes : 044 073 049 degrees QTc Int : 444 ms NORMAL SINUS RHYTHM NONSPECIFIC T WAVE ABNORMALITY WHEN COMPARED WITH ECG OF 09-SEP-2018 00:28, NO SIGNIFICANT CHANGE WAS FOUND Confirmed by ASHLEIGH KIRAN MD ([id number]) on 04/03/2019 1:26:23 PM Referred By: Confirmed By:ASHLEIGH KIRAN MD
[2019-04-03] MEDS ORDERED: PT OWN MED DRAWER 7, Y5N ONE ×2 (16:18→23:32)
[2019-04-03] MEDS ORDERED: BISACODYL 5 MG TABLET.DR (FP) PO PRN (18:32)
[2019-04-03] MEDS: ALPRAZolam 0.25 MG TABLET PO PRN (21:52)
[2019-04-03] MEDS: rOPINIRole HCL 1 MG TABLET (FP) PO SCH (21:53)
[2019-04-03] MEDS: GABAPENTIN 300 MG CAPSULE PO SCH (21:53)
[2019-04-03] MEDS: ATORVASTATIN CA 40 MG TABLET (FP) PO SCH (21:53)
[2019-04-03] MEDS: SENNOSIDES 8.6MG TABLET (FP) PO SCH (21:54)
[2019-04-03] MEDS: DOCUSATE SODIUM 100 MG CAPSULE (FP) PO SCH (21:54)
[2019-04-03] MEDS ORDERED: PATIENT'S OWN MEDICATION (NON-FORMULARY) (Zolpidem Tartrate [Ambien] 10 MG) PO SCH (22:00)
[2019-04-03] MEDS ORDERED: PATIENT'S OWN MEDICATION (NON-FORMULARY) (Gabapentin [Neurontin] 600 MG) PO SCH (22:00)
[2019-04-04] MEDS ORDERED: ZOLPIDEM TARTRATE 5 MG TABLET PO ONE (00:15)
[2019-04-04] MEDS ORDERED: cefTRIAXone SODIUM 1 GM VIAL ONE (08:22)
[2019-04-04] MEDS ORDERED: DEXTROSE 5%-WATER - 50 ML IVPB ONE (08:22)
[2019-04-04] MEDS: oxyCODONE HCL 5 MG TABLET PO PRN ×3 (08:24→20:35)
[2019-04-04] MEDS: ACETAMINOPHEN 500 MG TABLET (FP) PO PRN ×3 (08:25→20:34)
[2019-04-04 08:41] LABS: BASO % 0.3 % (0-2.0); EOS % 1.6 % (0-4.5); HEMATOCRIT 32.2 % (32.4-45.2); HEMOGLOBIN 10.9 GM/dL (10.7-15.3); LYMPH % 14.4 % (8-40); MCH 28.5 pg (25.7-33.7); MEAN CELL VOLUME 83.9 fl (80-96); MEAN PLT VOLUME 8.8 fl (7.5-11.1); MONO % 14.4 % (3.8-10.2); NEUT % 69.3 % (42.8-82.8); PLATELET COUNT 208 K/MM3 (134-434); RBC 3.83 M/mm3 (3.60-5.2); WHITE BLOOD COUNT 4.5 K/mm3 (4.0-10.0)
[2019-04-04] MEDS: CEFTRIAXONE 1 GM in DEXTROSE 5%-WATER - 50 ML IVPB SCH (09:12)
[2019-04-04] MEDS: ENOXAPARIN NA (PORCINE) 40 MG/0.4 ML DISP.SYRIN SQ SCH (09:12)
[2019-04-04 09:17] LABS: ALBUMIN 3.1 g/dl (3.4-5.0); BILIRUBIN,TOTAL 0.3 mg/dL (0.2-1); BLOOD UREA NITROGEN 7.5 mg/dL (7-18); CALCIUM 8.9 mg/dL (8.5-10.1); CREATININE 0.7 mg/dL (0.55-1.3); POTASSIUM 3.6 mmol/L (3.5-5.1); TOT PROT 5.6 g/dl (6.4-8.2)
[2019-04-04] MEDS: BACLOFEN 10 MG TABLET (FP) PO SCH ×2 (09:20→22:56)
[2019-04-04] MEDS: GABAPENTIN 300 MG CAPSULE PO SCH ×2 (09:20→22:54)
--- NOTE | 2019-04-04 10:42 | PN ---
Progress Note (short form) - Note Progress Note: History of Present Illness: pt seen/ examined. Chart is reviewed awake/ comfortable but still complains of discomfort in abdomen decreased appetite no distress afebrile Vital Signs - 24 hr 04/03/19 04/03/19 04/03/19 13:54 18:35 20:42 Temperature 99.1 F 99.3 F 99.1 F Pulse Rate 73 66 79 Respiratory 20 18 17 Rate Blood Pressure 107/71 109/75 116/73 O2 Sat by Pulse Oximetry (%) 04/03/19 04/04/19 20:44 06:00 Temperature 98.6 F Pulse Rate 73 Respiratory 17 16 Rate Blood Pressure 95/55 L O2 Sat by Pulse 99 Oximetry (%) Current Medications Generic Name Dose Route Start Last Admin Trade Name Freq PRN Reason Stop Dose Admin Acetaminophen 500 mg 04/03/19 13:18 04/04/19 08:25 Tylenol - PO 500 mg Q6H PRN Administration PAIN LEVEL 7 - 10 Alprazolam 0.5 mg 04/03/19 13:20 04/03/19 21:52 Xanax - PO 0.5 mg Q24H PRN Administration ANXIETY Atorvastatin Calcium 40 mg 04/03/19 22:00 04/03/19 21:53 Lipitor - PO 40 mg HS ANU Administration Baclofen 20 mg 04/03/19 10:00 04/04/19 09:20 Lioresal - PO 20 mg BID ANU Administration Bisacodyl 5 mg 04/03/19 18:32 Dulcolax - PO DAILY PRN CONSTIPATION Bupropion HCl 300 mg 04/04/19 10:00 04/04/19 09:14 Wellbutrin Xl - PO 300 mg DAILY NAU Administration Docusate Sodium 300 mg 04/03/19 22:00 04/03/19 21:54 Colace - PO 300 mg HS ANU Administration Enoxaparin Sodium 40 mg 04/03/19 10:00 04/04/19 09:12 Lovenox - SQ 40 mg DAILY ANU Administration Gabapentin 600 mg 04/03/19 22:00 04/03/19 21:53 Neurontin - PO 600 mg HS ANU Administration Gabapentin 300 mg 04/04/19 10:00 04/04/19 09:20 Neurontin - PO 300 mg DAILY ANU Administration Ceftriaxone Sodium 1 gm/ 50 mls @ 100 mls/hr 04/03/19 10:00 04/04/19 09:12 Dextrose IVPB 100 mls/hr DAILY ANU Administration Protocol Non-Formulary Medication 0.5 mg 04/03/19 10:00 Fingolimod Hcl [Gilenya] PO DAILY ANU Ondansetron HCl 4 mg 04/03/19 01:42 04/03/19 23:27 Zofran Injection IVPUSH 4 mg Q6H PRN Administration NAUSEA AND/OR VOMITING Oxycodone HCl 5 mg 04/03/19 13:17 04/04/19 08:24 Roxicodone - PO 5 mg Q6H PRN Administration PAIN LEVEL 7 - 10 Propranolol HCl 20 mg 04/03/19 22:00 04/03/19 21:52 Inderal - PO 20 mg HS ANU Administration Ropinirole HCl 1 mg 04/03/19 22:00 04/03/19 21:53 Requip - PO 1 mg HS ANU Administration Senna 1 tab 04/03/19 22:00 04/03/19 21:54 Senna - PO 1 tab HS ANU Administration Sertraline HCl 100 mg 04/04/19 22:00 Zoloft - PO HS ANU Laboratory Results - last 24 hr 04/04/19 04/04/19 07:00 07:00 WBC 4.5 RBC 3.83 Hgb 10.9 Hct 32.2 L MCV 83.9 MCH 28.5 MCHC 34.0 RDW 13.0 Plt Count 208 D MPV 8.8 Absolute Neuts (auto) 3.1 Neutrophils % 69.3 Lymphocytes % 14.4 D Monocytes % 14.4 H Eosinophils % 1.6 Basophils % 0.3 Nucleated RBC % 0 Sodium 144 Potassium 3.6 Chloride 110 H Carbon Dioxide 29 Anion Gap 4 L BUN 7.5 Creatinine 0.7 Est GFR (CKD-EPI)AfAm 116.27 Est GFR (CKD-EPI)NonAf 100.32 Random Glucose 93 Calcium 8.9 Total Bilirubin 0.3 AST 30 ALT 33 Alkaline Phosphatase 107 Total Protein 5.6 L Albumin 3.1 L Problem List - Problems (1) Intractable nausea and vomiting Code(s): R11.2 - NAUSEA WITH VOMITING, UNSPECIFIED (2) Abdominal pain Code(s): R10.9 - UNSPECIFIED ABDOMINAL PAIN (3) Neurogenic bladder Code(s): N31.9 - NEUROMUSCULAR DYSFUNCTION OF BLADDER, UNSPECIFIED Renal US with mild dilatation of right renal pelvis, no hydronephrosis CT scan of abdomen and pelvis with no acute findings . Received one dose of IV Rocephin and IV toradol and morphine for pain and IV zofran for nausea in ER O/E S1 S2 RRR No pallor Lungs clear Abd- soft, tender lower abdomen B/L Not distended No edema PLAN blood cultures negative on iv Ceftriaxone Urine cultures pending Add Ensure pain control if urine cultures negative, I will be consulting GI Problem List - Problems (1) Intractable abdominal pain Code(s): R10.9 - UNSPECIFIED ABDOMINAL PAIN (2) Intractable nausea and vomiting Code(s): R11.2 - NAUSEA WITH VOMITING, UNSPECIFIED (3) UTI (urinary tract infection) Code(s): N39.0 - URINARY TRACT INFECTION, SITE NOT SPECIFIED (4) Neurogenic bladder Code(s): N31.9 - NEUROMUSCULAR DYSFUNCTION OF BLADDER, UNSPECIFIED
--- NOTE | 2019-04-04 16:51 | PN ---
Progress Note, Physician History of Present Illness: Pt c/o abdominal discomfort. Tmax 99.5. Lab/imaging results reviewed. - Current Medication List Current Medications: Active Medications Acetaminophen (Tylenol -) 500 mg PO Q6H PRN PRN Reason: PAIN LEVEL 7 - 10 Last Admin: 04/04/19 14:22 Dose: 500 mg Alprazolam (Xanax -) 0.5 mg PO Q24H PRN PRN Reason: ANXIETY Last Admin: 04/03/19 21:52 Dose: 0.5 mg Atorvastatin Calcium (Lipitor -) 40 mg PO HS [facility] Last Admin: 04/03/19 21:53 Dose: 40 mg Baclofen (Lioresal -) 20 mg PO BID [facility] Last Admin: 04/04/19 09:20 Dose: 20 mg Bisacodyl (Dulcolax -) 5 mg PO DAILY PRN PRN Reason: CONSTIPATION Bupropion HCl (Wellbutrin Xl -) 300 mg PO DAILY [facility] Last Admin: 04/04/19 09:14 Dose: 300 mg Docusate Sodium (Colace -) 300 mg PO HS [facility] Last Admin: 04/03/19 21:54 Dose: 300 mg Enoxaparin Sodium (Lovenox -) 40 mg SQ DAILY [facility] Last Admin: 04/04/19 09:12 Dose: 40 mg Gabapentin (Neurontin -) 600 mg PO HS [facility] Last Admin: 04/03/19 21:53 Dose: 600 mg Gabapentin (Neurontin -) 300 mg PO DAILY [facility] Last Admin: 04/04/19 09:20 Dose: 300 mg Ceftriaxone Sodium 1 gm/ (Dextrose) 50 mls @ 100 mls/hr IVPB DAILY [facility]; Protocol Last Admin: 04/04/19 09:12 Dose: 100 mls/hr Non-Formulary Medication (Fingolimod Hcl [Gilenya]) 0.5 mg PO DAILY [facility] Ondansetron HCl (Zofran Injection) 4 mg IVPUSH Q6H PRN PRN Reason: NAUSEA AND/OR VOMITING Last Admin: 04/03/19 23:27 Dose: 4 mg Oxycodone HCl (Roxicodone -) 5 mg PO Q6H PRN PRN Reason: PAIN LEVEL 7 - 10 Last Admin: 04/04/19 14:22 Dose: 5 mg Propranolol HCl (Inderal -) 20 mg PO HS [facility] Last Admin: 04/03/19 21:52 Dose: 20 mg Ropinirole HCl (Requip -) 1 mg PO [facility] Last Admin: 04/03/19 21:53 Dose: 1 mg Senna (Senna -) 1 tab PO [facility] Last Admin: 04/03/19 21:54 Dose: 1 tab Sertraline HCl (Zoloft -) 100 mg PO [facility] - Objective Vital Signs: Vital Signs Temperature 98.8 F 04/04/19 14:10 Pulse Rate 75 04/04/19 14:10 Respiratory Rate 18 04/04/19 14:10 Blood Pressure 100/64 04/04/19 14:10 O2 Sat by Pulse Oximetry (%) 97 04/04/19 09:00 Constitutional: Yes: No Distress Cardiovascular: Yes: Regular Rate and Rhythm Respiratory: Yes: Regular Gastrointestinal: Yes: Normal Bowel Sounds, Soft, Tenderness Genitourinary: Yes: WNL Extremities: Yes: WNL Integumentary: Yes: WNL Neurological: Yes: Alert Labs: CBC, BMP 04/04/19 07:00 04/04/19 07:00 Microbiology 04/02/19 19:31 Urine - Urine Clean Catch Urine Culture - Final NO GROWTH OBTAINED 04/02/19 20:32 Blood - Peripheral Venous Blood Culture - Preliminary NO GROWTH OBTAINED AFTER 24 HOURS, INCUBATION TO CONTINUE FOR 4 DAYS. 04/02/19 20:32 Blood - Peripheral Venous Blood Culture - Preliminary NO GROWTH OBTAINED AFTER 24 HOURS, INCUBATION TO CONTINUE FOR 4 DAYS. - ....Imaging Chest X-ray: Report Reviewed Cat Scan: Report Reviewed Problem List - Problems (1) Intractable abdominal pain Code(s): R10.9 - UNSPECIFIED ABDOMINAL PAIN (2) Intractable nausea and vomiting Code(s): R11.2 - NAUSEA WITH VOMITING, UNSPECIFIED Assessment/Plan Urine culture neg Blood cultures neg so far CT A/P without any specific findings -- etiology of abdominal pain is unclear -- will hold antibiotics for now -- continue monitor temperature trends/vitals
[2019-04-04] MEDS: SENNOSIDES 8.6MG TABLET (FP) PO SCH (22:54)
[2019-04-04] MEDS: DOCUSATE SODIUM 100 MG CAPSULE (FP) PO SCH (22:55)
[2019-04-04] MEDS: SERTRALINE HCL 50 MG TABLET (FP) PO SCH (22:55)
[2019-04-04] MEDS: ATORVASTATIN CA 40 MG TABLET (FP) PO SCH (22:56)
[2019-04-04] MEDS: rOPINIRole HCL 1 MG TABLET (FP) PO SCH (22:58)
[2019-04-05] MEDS: ALPRAZolam 0.25 MG TABLET PO PRN ×2 (00:04→23:04)
[2019-04-05] MEDS: ZOLPIDEM TARTRATE 5 MG TABLET PO PRN ×2 (00:04→23:05)
[2019-04-05] MEDS: ACETAMINOPHEN 500 MG TABLET (FP) PO PRN ×3 (06:11→20:08)
[2019-04-05] MEDS: oxyCODONE HCL 5 MG TABLET PO PRN ×3 (06:15→20:08)
[2019-04-05] MEDS ORDERED: MORPHINE SULFATE 2 MG/ML VIAL IVPUSH ONE (06:57)
[2019-04-05] MEDS: ONDANSETRON 4 MG/2 ML VIAL IVPUSH PRN ×2 (06:59→15:41)
--- NOTE | 2019-04-05 07:01 | HOSP ---
Subjective - Review of Symptoms Events since last encounter: hospitalist encounter Notified by the RN that the patient reports r- flank and RUQ pain with nausea, no relief with Oxycodone. PE performed see EMR Plan: ANIVAL FROST in am Morphine 1mg IV x1 now Gastrointestinal: Yes: Nausea Musculoskeletal: Yes: Back Pain Physical Examination Vital Signs: Vital Signs Temperature 98.2 F 04/05/19 06:00 Pulse Rate 78 04/05/19 06:00 Respiratory Rate 18 04/05/19 06:00 Blood Pressure 110/62 04/05/19 06:00 O2 Sat by Pulse Oximetry (%) 99 04/04/19 21:00 Constitutional: Yes: Mild Distress, Thin Eyes: Yes: WNL, Conjunctiva Clear, EOM Intact, PERRL HENT: Yes: WNL, Atraumatic, Normocephalic Neck: Yes: WNL, Supple, Trachea Midline Cardiovascular: Yes: Regular Rate and Rhythm, S1, S2 Respiratory: Yes: WNL, Regular, CTA Bilaterally Gastrointestinal: Yes: Normal Bowel Sounds, Soft, Tenderness (RUQ) ...Rectal Exam: Yes: Deferred Renal/: Yes: CVA Tenderness - Right Breast(s): Yes: WNL Musculoskeletal: Yes: WNL Edema: No Peripheral Pulses WNL: Yes Neurological: Yes: WNL, Alert, Oriented, Cran Nerves II-XII Intact ...Motor Strength: WNL Psychiatric: Yes: WNL Labs: CBC, BMP 04/04/19 07:00 04/04/19 07:00 Hospitalist Encounter Recommendations/Interventions: Consider Urology consult if condition worsens
--- NOTE | 2019-04-05 08:48 | PN ---
Progress Note (short form) - Note Progress Note: History of Present Illness: pt seen/ examined. Chart is reviewed awake/ comfortable but still complains of discomfort in abdomen she had right flank pain this AM, low grade fever decreased appetite Vital Signs - 24 hr 04/04/19 04/05/19 04/05/19 21:00 06:00 08:40 Temperature 98.2 F 100.4 F H Pulse Rate 78 76 Respiratory 18 18 Rate Blood Pressure 110/62 106/71 O2 Sat by Pulse 99 Oximetry (%) 04/05/19 04/05/19 09:00 14:18 Temperature 99 F Pulse Rate 71 Respiratory 18 18 Rate Blood Pressure 122/72 O2 Sat by Pulse 96 Oximetry (%) Current Medications Generic Name Dose Route Start Last Admin Trade Name Freq PRN Reason Stop Dose Admin Acetaminophen 500 mg 04/03/19 13:18 04/05/19 20:08 Tylenol - PO 500 mg Q6H PRN Administration PAIN LEVEL 7 - 10 Alprazolam 0.5 mg 04/03/19 13:20 04/05/19 00:04 Xanax - PO 0.5 mg Q24H PRN Administration ANXIETY Atorvastatin Calcium 40 mg 04/03/19 22:00 04/04/19 22:56 Lipitor - PO 40 mg HS ANU Administration Baclofen 20 mg 04/03/19 10:00 04/05/19 10:33 Lioresal - PO 20 mg BID ANU Administration Bisacodyl 5 mg 04/03/19 18:32 04/05/19 16:55 Dulcolax - PO 5 mg DAILY PRN Administration CONSTIPATION Bupropion HCl 300 mg 04/04/19 10:00 04/05/19 10:31 Wellbutrin Xl - PO 300 mg DAILY ANU Administration Docusate Sodium 300 mg 04/03/19 22:00 04/04/19 22:55 Colace - PO 300 mg HS ANU Administration Enoxaparin Sodium 40 mg 04/03/19 10:00 04/05/19 10:33 Lovenox - SQ 40 mg DAILY ANU Administration Gabapentin 600 mg 04/03/19 22:00 04/04/19 22:54 Neurontin - PO 600 mg HS ANU Administration Gabapentin 300 mg 04/04/19 10:00 04/05/19 10:33 Neurontin - PO 300 mg DAILY ANU Administration Ceftriaxone Sodium 1 gm/ 50 mls @ 100 mls/hr 04/05/19 13:00 04/05/19 13:10 Dextrose IVPB 100 mls/hr DAILY ANU Administration Morphine Sulfate 1 mg 04/05/19 08:59 04/05/19 16:55 Morphine Sulfate IVPUSH 1 mg Q6H PRN Administration PAIN LEVEL 7 - 10 Non-Formulary Medication 0.5 mg 04/03/19 10:00 Fingolimod Hcl [Gilenya] PO DAILY ANU Ondansetron HCl 4 mg 04/03/19 01:42 04/05/19 15:41 Zofran Injection IVPUSH 4 mg Q6H PRN Administration NAUSEA AND/OR VOMITING Oxycodone HCl 5 mg 04/03/19 13:17 04/05/19 20:08 Roxicodone - PO 5 mg Q6H PRN Administration PAIN LEVEL 7 - 10 Propranolol HCl 20 mg 04/03/19 22:00 04/04/19 22:58 Inderal - PO 20 mg HS ANU Administration Ropinirole HCl 1 mg 04/03/19 22:00 04/04/19 22:58 Requip - PO 1 mg HS ANU Administration Senna 1 tab 04/03/19 22:00 04/04/19 22:54 Senna - PO 1 tab HS ANU Administration Sertraline HCl 100 mg 04/04/19 22:00 04/04/19 22:55 Zoloft - PO 100 mg HS ANU Administration Zolpidem Tartrate 5 mg 04/04/19 23:33 04/05/19 00:04 Ambien - PO 5 mg HS PRN Administration INSOMNIA Laboratory Results - last 24 hr 04/05/19 04/05/19 07:45 07:45 WBC 3.8 L RBC 3.80 Hgb 10.9 Hct 31.8 L MCV 83.8 MCH 28.6 MCHC 34.2 RDW 13.1 Plt Count 223 MPV 8.8 Absolute Neuts (auto) 2.4 Neutrophils % 61.2 Lymphocytes % 20.6 D Monocytes % 15.3 H Eosinophils % 2.5 Basophils % 0.4 Nucleated RBC % 0 Sodium 143 Potassium 3.9 Chloride 109 H Carbon Dioxide 29 Anion Gap 6 L BUN 10.9 Creatinine 0.6 Est GFR (CKD-EPI)AfAm 122.32 Est GFR (CKD-EPI)NonAf 105.54 Random Glucose 107 H Calcium 8.9 Problem List - Problems (1) Intractable nausea and vomiting Code(s): R11.2 - NAUSEA WITH VOMITING, UNSPECIFIED (2) Abdominal pain Code(s): R10.9 - UNSPECIFIED ABDOMINAL PAIN (3) Neurogenic bladder Code(s): N31.9 - NEUROMUSCULAR DYSFUNCTION OF BLADDER, UNSPECIFIED Renal US with mild dilatation of right renal pelvis, no hydronephrosis CT scan of abdomen and pelvis with no acute findings . O/E S1 S2 RRR No pallor Lungs clear Abd- soft, tender right flank and right side of back Not distended No edema PLAN blood cultures negative on iv Ceftriaxone restarted as she has fever reculture Urine cultures negative Add Ensure pain control eval Problem List - Problems (1) Intractable abdominal pain Code(s): R10.9 - UNSPECIFIED ABDOMINAL PAIN (2) Intractable nausea and vomiting Code(s): R11.2 - NAUSEA WITH VOMITING, UNSPECIFIED (3) UTI (urinary tract infection) Code(s): N39.0 - URINARY TRACT INFECTION, SITE NOT SPECIFIED (4) Neurogenic bladder Code(s): N31.9 - NEUROMUSCULAR DYSFUNCTION OF BLADDER, UNSPECIFIED
[2019-04-05 09:40] LABS: BASO % 0.4 % (0-2.0); EOS % 2.5 % (0-4.5); HEMATOCRIT 31.8 % (32.4-45.2); HEMOGLOBIN 10.9 GM/dL (10.7-15.3); LYMPH % 20.6 % (8-40); MCH 28.6 pg (25.7-33.7); MCHC 34.2 g/dl (32.0-36.0); MEAN CELL VOLUME 83.8 fl (80-96); MEAN PLT VOLUME 8.8 fl (7.5-11.1); MONO % 15.3 % (3.8-10.2); NEUT % 61.2 % (42.8-82.8); PLATELET COUNT 223 K/MM3 (134-434); RDW 13.1 % (11.6-15.6); WHITE BLOOD COUNT 3.8 K/mm3 (4.0-10.0)
[2019-04-05 10:15] LABS: BLOOD UREA NITROGEN 10.9 mg/dL (7-18); CALCIUM 8.9 mg/dL (8.5-10.1); CREATININE 0.6 mg/dL (0.55-1.3); POTASSIUM 3.9 mmol/L (3.5-5.1)
[2019-04-05] MEDS: ENOXAPARIN NA (PORCINE) 40 MG/0.4 ML DISP.SYRIN SQ SCH (10:33)
[2019-04-05] MEDS: GABAPENTIN 300 MG CAPSULE PO SCH ×2 (10:33→23:05)
[2019-04-05] MEDS: BACLOFEN 10 MG TABLET (FP) PO SCH ×2 (10:33→23:04)
[2019-04-05] MEDS ORDERED: cefTRIAXone SODIUM 1 GM VIAL ONE (13:07)
[2019-04-05] MEDS ORDERED: DEXTROSE 5%-WATER - 50 ML IVPB ONE (13:07)
[2019-04-05] MEDS: CEFTRIAXONE 1 GM in DEXTROSE 5%-WATER - 50 ML IVPB SCH (13:10)
[2019-04-05] MEDS: MORPHINE SULFATE 2 MG/ML VIAL IVPUSH PRN ×2 (16:55→23:05)
--- NOTE | 2019-04-05 19:47 | PN ---
Progress Note, Physician History of Present Illness: Pt c/o RUQ/flank tenderness and nausea earlier today. States that she has chronic Lower back pain but has been having this intermittent pain. Also noted to have temp of 100.4F this a.m. Otherwise, pt denies having any other specific complaints. Is having normal BMs and eating and ambulating. No dysuria. She self -catheterizes. - Current Medication List Current Medications: Active Medications Acetaminophen (Tylenol -) 500 mg PO Q6H PRN PRN Reason: PAIN LEVEL 7 - 10 Last Admin: 04/05/19 12:16 Dose: 500 mg Alprazolam (Xanax -) 0.5 mg PO Q24H PRN PRN Reason: ANXIETY Last Admin: 04/05/19 00:04 Dose: 0.5 mg Atorvastatin Calcium (Lipitor -) 40 mg PO HS [facility] Last Admin: 04/04/19 22:56 Dose: 40 mg Baclofen (Lioresal -) 20 mg PO BID [facility] Last Admin: 04/05/19 10:33 Dose: 20 mg Bisacodyl (Dulcolax -) 5 mg PO DAILY PRN PRN Reason: CONSTIPATION Last Admin: 04/05/19 16:55 Dose: 5 mg Bupropion HCl (Wellbutrin Xl -) 300 mg PO DAILY [facility] Last Admin: 04/05/19 10:31 Dose: 300 mg Docusate Sodium (Colace -) 300 mg PO HS [facility] Last Admin: 04/04/19 22:55 Dose: 300 mg Enoxaparin Sodium (Lovenox -) 40 mg SQ DAILY [facility] Last Admin: 04/05/19 10:33 Dose: 40 mg Gabapentin (Neurontin -) 600 mg PO HS [facility] Last Admin: 04/04/19 22:54 Dose: 600 mg Gabapentin (Neurontin -) 300 mg PO DAILY [facility] Last Admin: 04/05/19 10:33 Dose: 300 mg Ceftriaxone Sodium 1 gm/ (Dextrose) 50 mls @ 100 mls/hr IVPB DAILY [facility] Last Admin: 04/05/19 13:10 Dose: 100 mls/hr Morphine Sulfate (Morphine Sulfate) 1 mg IVPUSH Q6H PRN PRN Reason: PAIN LEVEL 7 - 10 Last Admin: 04/05/19 16:55 Dose: 1 mg Non-Formulary Medication (Fingolimod Hcl [Gilenya]) 0.5 mg PO DAILY [facility] Ondansetron HCl (Zofran Injection) 4 mg IVPUSH Q6H PRN PRN Reason: NAUSEA AND/OR VOMITING Last Admin: 04/05/19 15:41 Dose: 4 mg Oxycodone HCl (Roxicodone -) 5 mg PO Q6H PRN PRN Reason: PAIN LEVEL 7 - 10 Last Admin: 04/05/19 12:15 Dose: 5 mg Propranolol HCl (Inderal -) 20 mg PO [facility] Last Admin: 04/04/19 22:58 Dose: 20 mg Ropinirole HCl (Requip -) 1 mg PO HS [facility] Last Admin: 04/04/19 22:58 Dose: 1 mg Senna (Senna -) 1 tab PO [facility] Last Admin: 04/04/19 22:54 Dose: 1 tab Sertraline HCl (Zoloft -) 100 mg PO [facility] Last Admin: 04/04/19 22:55 Dose: 100 mg Zolpidem Tartrate (Ambien -) 5 mg PO HS PRN PRN Reason: INSOMNIA Last Admin: 04/05/19 00:04 Dose: 5 mg - Objective Vital Signs: Vital Signs Temperature 99 F 04/05/19 14:18 Pulse Rate 71 04/05/19 14:18 Respiratory Rate 18 04/05/19 14:18 Blood Pressure 122/72 04/05/19 14:18 O2 Sat by Pulse Oximetry (%) 96 04/05/19 09:00 Constitutional: Yes: No Distress, Calm Eyes: Yes: Conjunctiva Clear, EOM Intact HENT: Yes: Atraumatic Neck: Yes: Supple, Trachea Midline Cardiovascular: Yes: Regular Rate and Rhythm Respiratory: Yes: CTA Bilaterally Gastrointestinal: Yes: Normal Bowel Sounds, Soft, Tenderness (RUQ with deep palpation) Genitourinary: Yes: WNL Musculoskeletal: Yes: WNL Extremities: Yes: WNL Edema: No Peripheral Pulses WNL: Yes Integumentary: Yes: WNL Neurological: Yes: Alert, Oriented Psychiatric: Yes: Alert, Oriented Labs: CBC, BMP 04/05/19 07:45 04/05/19 07:45 Microbiology 04/02/19 20:32 Blood - Peripheral Venous Blood Culture - Preliminary NO GROWTH OBTAINED AFTER 48 HOURS, INCUBATION TO CONTINUE FOR 3 DAYS. 04/02/19 20:32 Blood - Peripheral Venous Blood Culture - Preliminary NO GROWTH OBTAINED AFTER 48 HOURS, INCUBATION TO CONTINUE FOR 3 DAYS. 04/02/19 19:31 Urine - Urine Clean Catch Urine Culture - Final NO GROWTH OBTAINED Problem List - Problems (1) Intractable abdominal pain Code(s): R10.9 - UNSPECIFIED ABDOMINAL PAIN (2) Intractable nausea and vomiting Code(s): R11.2 - NAUSEA WITH VOMITING, UNSPECIFIED Assessment/Plan Abdominal pain Low grade fever MS Urine culture neg Blood cultures neg so far CT A/P and renal US without any specific findings -- restarted Ceftriaxone -- will order blood cultures -- consider /GI evaluation if symptoms persist
[2019-04-05] MEDS ORDERED: PT OWN MED DRAWER 7, Y5N ONE (23:02)
[2019-04-05] MEDS: SERTRALINE HCL 50 MG TABLET (FP) PO SCH (23:03)
[2019-04-05] MEDS: DOCUSATE SODIUM 100 MG CAPSULE (FP) PO SCH (23:04)
[2019-04-05] MEDS: rOPINIRole HCL 1 MG TABLET (FP) PO SCH (23:05)
[2019-04-05] MEDS: ATORVASTATIN CA 40 MG TABLET (FP) PO SCH (23:05)
[2019-04-05] MEDS: SENNOSIDES 8.6MG TABLET (FP) PO SCH (23:05)
[2019-04-06] MEDS: oxyCODONE HCL 5 MG TABLET PO PRN ×3 (07:09→20:03)
[2019-04-06] MEDS: ACETAMINOPHEN 500 MG TABLET (FP) PO PRN ×3 (07:09→20:04)
[2019-04-06] MEDS ORDERED: cefTRIAXone SODIUM 1 GM VIAL ONE (08:48)
[2019-04-06] MEDS ORDERED: DEXTROSE 5%-WATER - 50 ML IVPB ONE (08:48)
[2019-04-06] MEDS: MORPHINE SULFATE 2 MG/ML VIAL IVPUSH PRN ×3 (09:06→21:56)
[2019-04-06] MEDS: ONDANSETRON 4 MG/2 ML VIAL IVPUSH PRN (09:07)
[2019-04-06] MEDS: ENOXAPARIN NA (PORCINE) 40 MG/0.4 ML DISP.SYRIN SQ SCH (09:09)
[2019-04-06] MEDS: BACLOFEN 10 MG TABLET (FP) PO SCH ×2 (09:10→21:46)
[2019-04-06] MEDS: CEFTRIAXONE 1 GM in DEXTROSE 5%-WATER - 50 ML IVPB SCH (09:10)
[2019-04-06] MEDS: GABAPENTIN 300 MG CAPSULE PO SCH ×2 (09:10→21:46)
--- NOTE | 2019-04-06 10:33 | PN ---
Progress Note, Physician History of Present Illness: Pt seen/ examined chart is reviewed awake/ comfortable feels better afebrile - Current Medication List Current Medications: Active Medications Acetaminophen (Tylenol -) 500 mg PO Q6H PRN PRN Reason: PAIN LEVEL 7 - 10 Last Admin: 04/06/19 07:09 Dose: 500 mg Alprazolam (Xanax -) 0.5 mg PO Q24H PRN PRN Reason: ANXIETY Last Admin: 04/05/19 23:04 Dose: 0.5 mg Atorvastatin Calcium (Lipitor -) 40 mg PO HS [facility] Last Admin: 04/05/19 23:05 Dose: 40 mg Baclofen (Lioresal -) 20 mg PO BID [facility] Last Admin: 04/06/19 09:10 Dose: 20 mg Bisacodyl (Dulcolax -) 5 mg PO DAILY PRN PRN Reason: CONSTIPATION Last Admin: 04/05/19 16:55 Dose: 5 mg Bupropion HCl (Wellbutrin Xl -) 300 mg PO DAILY [facility] Last Admin: 04/06/19 09:09 Dose: 300 mg Docusate Sodium (Colace -) 300 mg PO HS [facility] Last Admin: 04/05/19 23:04 Dose: 300 mg Enoxaparin Sodium (Lovenox -) 40 mg SQ DAILY [facility] Last Admin: 04/06/19 09:09 Dose: 40 mg Gabapentin (Neurontin -) 600 mg PO HS [facility] Last Admin: 04/05/19 23:05 Dose: 600 mg Gabapentin (Neurontin -) 300 mg PO DAILY [facility] Last Admin: 04/06/19 09:10 Dose: 300 mg Ceftriaxone Sodium 1 gm/ (Dextrose) 50 mls @ 100 mls/hr IVPB DAILY [facility] Last Admin: 04/06/19 09:10 Dose: 100 mls/hr Morphine Sulfate (Morphine Sulfate) 1 mg IVPUSH Q6H PRN PRN Reason: PAIN LEVEL 7 - 10 Last Admin: 04/06/19 09:06 Dose: 1 mg Non-Formulary Medication (Fingolimod Hcl [Gilenya]) 0.5 mg PO DAILY [facility] Ondansetron HCl (Zofran Injection) 4 mg IVPUSH Q6H PRN PRN Reason: NAUSEA AND/OR VOMITING Last Admin: 04/06/19 09:07 Dose: 4 mg Oxycodone HCl (Roxicodone -) 5 mg PO Q6H PRN PRN Reason: PAIN LEVEL 7 - 10 Last Admin: 04/06/19 07:09 Dose: 5 mg Propranolol HCl (Inderal -) 20 mg PO [facility] Last Admin: 04/05/19 23:05 Dose: 20 mg Ropinirole HCl (Requip -) 1 mg PO [facility] Last Admin: 04/05/19 23:05 Dose: 1 mg Senna (Senna -) 1 tab PO [facility] Last Admin: 04/05/19 23:05 Dose: 1 tab Sertraline HCl (Zoloft -) 100 mg PO [facility] Last Admin: 04/05/19 23:03 Dose: 100 mg Zolpidem Tartrate (Ambien -) 5 mg PO HS PRN PRN Reason: INSOMNIA Last Admin: 04/05/19 23:05 Dose: 5 mg - Objective Vital Signs: Vital Signs Temperature 98.4 F 04/06/19 09:01 Pulse Rate 73 04/06/19 09:01 Respiratory Rate 16 04/06/19 09:01 Blood Pressure 98/62 04/06/19 09:01 O2 Sat by Pulse Oximetry (%) 97 04/05/19 21:00 Constitutional: Yes: No Distress, Calm Eyes: Yes: Conjunctiva Clear Neck: Yes: Supple Cardiovascular: Yes: Regular Rate and Rhythm Respiratory: Yes: CTA Bilaterally Gastrointestinal: Yes: Soft Edema: No Neurological: Yes: Alert Psychiatric: Yes: Alert Labs: CBC, BMP 04/05/19 07:45 04/05/19 07:45 Problem List - Problems (1) Intractable nausea and vomiting Code(s): R11.2 - NAUSEA WITH VOMITING, UNSPECIFIED (2) Abdominal pain Code(s): R10.9 - UNSPECIFIED ABDOMINAL PAIN (3) Neurogenic bladder Code(s): N31.9 - NEUROMUSCULAR DYSFUNCTION OF BLADDER, UNSPECIFIED Assessment/Plan Overall better Discussed daily oob - chair PT f/u cultures abx If better --and cultures are -ve- Consider d/c in Am D/w Pt also
--- NOTE | 2019-04-06 12:23 | PN ---
Progress Note, Physician History of Present Illness: stable no new issues - Current Medication List Current Medications: Active Medications Acetaminophen (Tylenol -) 500 mg PO Q6H PRN PRN Reason: PAIN LEVEL 7 - 10 Last Admin: 04/06/19 07:09 Dose: 500 mg Alprazolam (Xanax -) 0.5 mg PO Q24H PRN PRN Reason: ANXIETY Last Admin: 04/05/19 23:04 Dose: 0.5 mg Atorvastatin Calcium (Lipitor -) 40 mg PO HS [facility] Last Admin: 04/05/19 23:05 Dose: 40 mg Baclofen (Lioresal -) 20 mg PO BID [facility] Last Admin: 04/06/19 09:10 Dose: 20 mg Bisacodyl (Dulcolax -) 5 mg PO DAILY PRN PRN Reason: CONSTIPATION Last Admin: 04/05/19 16:55 Dose: 5 mg Bupropion HCl (Wellbutrin Xl -) 300 mg PO DAILY [facility] Last Admin: 04/06/19 09:09 Dose: 300 mg Docusate Sodium (Colace -) 300 mg PO HS [facility] Last Admin: 04/05/19 23:04 Dose: 300 mg Enoxaparin Sodium (Lovenox -) 40 mg SQ DAILY [facility] Last Admin: 04/06/19 09:09 Dose: 40 mg Gabapentin (Neurontin -) 600 mg PO HS [facility] Last Admin: 04/05/19 23:05 Dose: 600 mg Gabapentin (Neurontin -) 300 mg PO DAILY [facility] Last Admin: 04/06/19 09:10 Dose: 300 mg Ceftriaxone Sodium 1 gm/ (Dextrose) 50 mls @ 100 mls/hr IVPB DAILY [facility] Last Admin: 04/06/19 09:10 Dose: 100 mls/hr Morphine Sulfate (Morphine Sulfate) 1 mg IVPUSH Q6H PRN PRN Reason: PAIN LEVEL 7 - 10 Last Admin: 04/06/19 09:06 Dose: 1 mg Non-Formulary Medication (Fingolimod Hcl [Gilenya]) 0.5 mg PO DAILY [facility] Ondansetron HCl (Zofran Injection) 4 mg IVPUSH Q6H PRN PRN Reason: NAUSEA AND/OR VOMITING Last Admin: 04/06/19 09:07 Dose: 4 mg Oxycodone HCl (Roxicodone -) 5 mg PO Q6H PRN PRN Reason: PAIN LEVEL 7 - 10 Last Admin: 04/06/19 07:09 Dose: 5 mg Propranolol HCl (Inderal -) 20 mg PO [facility] Last Admin: 04/05/19 23:05 Dose: 20 mg Ropinirole HCl (Requip -) 1 mg PO [facility] Last Admin: 04/05/19 23:05 Dose: 1 mg Senna (Senna -) 1 tab PO [facility] Last Admin: 04/05/19 23:05 Dose: 1 tab Sertraline HCl (Zoloft -) 100 mg PO [facility] Last Admin: 04/05/19 23:03 Dose: 100 mg Zolpidem Tartrate (Ambien -) 5 mg PO HS PRN PRN Reason: INSOMNIA Last Admin: 04/05/19 23:05 Dose: 5 mg - Objective Vital Signs: Vital Signs Temperature 98.4 F 04/06/19 09:01 Pulse Rate 73 04/06/19 09:01 Respiratory Rate 16 04/06/19 09:01 Blood Pressure 98/62 04/06/19 09:01 O2 Sat by Pulse Oximetry (%) 97 04/05/19 21:00 Constitutional: Yes: No Distress, Calm Cardiovascular: Yes: Regular Rate and Rhythm, S1, S2 Respiratory: Yes: Regular, CTA Bilaterally Gastrointestinal: Yes: Normal Bowel Sounds, Soft Musculoskeletal: Yes: WNL Extremities: Yes: WNL Neurological: Yes: Alert, Oriented Psychiatric: Yes: Alert, Oriented Labs: CBC, BMP 04/05/19 07:45 04/05/19 07:45 Assessment/Plan Problem List - Problems (1) Intractable nausea and vomiting Code(s): R11.2 - NAUSEA WITH VOMITING, UNSPECIFIED (2) Abdominal pain Code(s): R10.9 - UNSPECIFIED ABDOMINAL PAIN (3) Neurogenic bladder Code(s): N31.9 - NEUROMUSCULAR DYSFUNCTION OF BLADDER, UNSPECIFIED fever chills Assessment/Plan afebrile if remians afebrile stop all abx tomorrow
--- NOTE | 2019-04-06 13:01 | CON.GU ---
Consult Consult Specialty:: Referred by:: Medicine Reason for Consultation:: UTI. neurogenic bladder - History of Present Illness Chief Complaint: UTI, neurogenic bladder History of Present Illness: 49 yo female with MS and neurogenic bladder x 20 years. She self caths intermittently but has reported multiple UTIs and pain. No bowel symptoms. She is able to void on her own partially. - History Source History Provided By: Patient Limitations to Obtaining History: No Limitations - Past Medical History [employer] SEMIAUTOMATIC: Yes: Multiple Sclerosis, Other (MS. NEUROGENIC BLADDER--SELF CATHERIZES) Renal/: Yes: Neurogenic Bladder, Renal Calculi, UTI Psych: Yes: Anxiety - Past Surgical History Past Surgical History: Yes: Tonsillectomy - Alcohol/Substance Use Hx Alcohol Use: No - Smoking History Smoking history: Former smoker Have you smoked in the past 12 months: No Aproximately how many cigarettes per day: 5 If you are a former smoker, when did you quit?: 1 year ago Home Medications - Allergies Allergies/Adverse Reactions: Allergies Allergy/AdvReac Type Severity Reaction Status Date / Time No Known Allergies Allergy Verified 04/02/19 19:01 - Home Medications Home Medications: Ambulatory Orders Bupropion HCl [Wellbutrin Xl -] 300 mg PO DAILY #0 tab 07/28/13 Ropinirole HCl [Requip -] 1 mg PO HS #0 tablet 07/28/13 Sertraline HCl [Zoloft -] 100 mg PO DAILY #0 tablet 07/28/13 Atorvastatin Ca [Lipitor] 40 mg PO HS 09/26/16 Fingolimod HCl [Gilenya] 0.5 mg PO DAILY 09/26/16 Zolpidem Tartrate [Ambien] 10 mg PO HS 09/26/16 Baclofen [Lioresal -] 20 mg PO BID 10/02/16 Propranolol HCl 20 mg PO HS 04/12/17 Alprazolam [Xanax] 0.25 mg PO BID tablet [facility]D .5 04/15/17 Gabapentin [Neurontin] 600 mg PO HS 08/16/17 Ibuprofen [Motrin -] 800 mg PO PRN PRN 08/16/17 Oxycodone HCl/Acetaminophen [Percocet 5-325 mg Tablet] 1.5 tab PO TID PRN Review of Systems - Review of Systems Constitutional: reports: Fever Genitourinary: reports: Dysuria, Pain Physical Exam- Vital Signs: Vital Signs Temperature 98.4 F 04/06/19 09:01 Pulse Rate 73 04/06/19 09:01 Respiratory Rate 16 04/06/19 09:01 Blood Pressure 98/62 04/06/19 09:01 O2 Sat by Pulse Oximetry (%) 97 04/05/19 21:00 Gastrointestinal: Yes: Soft Renal/: No: Bladder Distention, CVA Tenderness - Left, CVA Tenderness - Right , Charles Present Labs: CBC, BMP 04/05/19 07:45 04/05/19 07:45 Imaging - Results Cat Scan: Report Reviewed Ultrasound: Report Reviewed Problem List - Problems (1) Neurogenic bladder Assessment/Plan: recommend outpatient follow up for Urodynamics and evaluation of her bladder function. Code(s): N31.9 - NEUROMUSCULAR DYSFUNCTION OF BLADDER, UNSPECIFIED
[2019-04-06] MEDS: ATORVASTATIN CA 40 MG TABLET (FP) PO SCH (21:45)
[2019-04-06] MEDS: SENNOSIDES 8.6MG TABLET (FP) PO SCH (21:45)
[2019-04-06] MEDS: DOCUSATE SODIUM 100 MG CAPSULE (FP) PO SCH (21:45)
[2019-04-06] MEDS: SERTRALINE HCL 50 MG TABLET (FP) PO SCH (21:46)
[2019-04-06] MEDS: rOPINIRole HCL 1 MG TABLET (FP) PO SCH (21:46)
[2019-04-06] MEDS: ALPRAZolam 0.25 MG TABLET PO PRN (23:52)
[2019-04-06] MEDS: ZOLPIDEM TARTRATE 5 MG TABLET PO PRN (23:52)
[2019-04-07] MEDS: oxyCODONE HCL 5 MG TABLET PO PRN ×2 (06:04→12:20)
[2019-04-07] MEDS: ACETAMINOPHEN 500 MG TABLET (FP) PO PRN ×2 (06:04→12:22)
[2019-04-07] MEDS: MORPHINE SULFATE 2 MG/ML VIAL IVPUSH PRN (08:39)
[2019-04-07 08:56] VITALS: BP 140/75; PULSE 71; TEMP 97.7
[2019-04-07] MEDS ORDERED: DEXTROSE 5%-WATER - 50 ML IVPB ONE (09:27)
[2019-04-07] MEDS ORDERED: cefTRIAXone SODIUM 1 GM VIAL ONE (09:27)
[2019-04-07] MEDS: CEFTRIAXONE 1 GM in DEXTROSE 5%-WATER - 50 ML IVPB SCH (09:41)
[2019-04-07] MEDS: BACLOFEN 10 MG TABLET (FP) PO SCH (09:42)
[2019-04-07] MEDS: ENOXAPARIN NA (PORCINE) 40 MG/0.4 ML DISP.SYRIN SQ SCH (09:44)
[2019-04-07] MEDS: GABAPENTIN 300 MG CAPSULE PO SCH (09:45)
--- NOTE | 2019-04-07 11:21 | PN ---
Progress Note, Physician History of Present Illness: says woke up drenched in sweat now stable - Current Medication List Current Medications: Active Medications Acetaminophen (Tylenol -) 500 mg PO Q6H PRN PRN Reason: PAIN LEVEL 7 - 10 Last Admin: 04/07/19 06:04 Dose: 500 mg Alprazolam (Xanax -) 0.5 mg PO Q24H PRN PRN Reason: ANXIETY Last Admin: 04/06/19 23:52 Dose: 0.5 mg Atorvastatin Calcium (Lipitor -) 40 mg PO HS [facility] Last Admin: 04/06/19 21:45 Dose: 40 mg Baclofen (Lioresal -) 20 mg PO BID [facility] Last Admin: 04/07/19 09:42 Dose: 20 mg Bisacodyl (Dulcolax -) 5 mg PO DAILY PRN PRN Reason: CONSTIPATION Last Admin: 04/05/19 16:55 Dose: 5 mg Bupropion HCl (Wellbutrin Xl -) 300 mg PO DAILY [facility] Last Admin: 04/07/19 09:43 Dose: 300 mg Docusate Sodium (Colace -) 300 mg PO HS [facility] Last Admin: 04/06/19 21:45 Dose: 300 mg Enoxaparin Sodium (Lovenox -) 40 mg SQ DAILY [facility] Last Admin: 04/07/19 09:44 Dose: 40 mg Gabapentin (Neurontin -) 600 mg PO [facility] Last Admin: 04/06/19 21:46 Dose: 600 mg Gabapentin (Neurontin -) 300 mg PO DAILY [facility] Last Admin: 04/07/19 09:45 Dose: 300 mg Morphine Sulfate (Morphine Sulfate) 1 mg IVPUSH Q6H PRN PRN Reason: PAIN LEVEL 7 - 10 Last Admin: 04/07/19 08:39 Dose: 1 mg Non-Formulary Medication (Fingolimod Hcl [Gilenya]) 0.5 mg PO DAILY [facility] Ondansetron HCl (Zofran Injection) 4 mg IVPUSH Q6H PRN PRN Reason: NAUSEA AND/OR VOMITING Last Admin: 04/06/19 09:07 Dose: 4 mg Oxycodone HCl (Roxicodone -) 5 mg PO Q6H PRN PRN Reason: PAIN LEVEL 7 - 10 Last Admin: 04/07/19 06:04 Dose: 5 mg Propranolol HCl (Inderal -) 20 mg PO [facility] Last Admin: 04/06/19 21:45 Dose: 20 mg Ropinirole HCl (Requip -) 1 mg PO [facility] Last Admin: 04/06/19 21:46 Dose: 1 mg Senna (Senna -) 1 tab PO [facility] Last Admin: 04/06/19 21:45 Dose: 1 tab Sertraline HCl (Zoloft -) 100 mg PO [facility] Last Admin: 04/06/19 21:46 Dose: 100 mg Zolpidem Tartrate (Ambien -) 5 mg PO PRN PRN Reason: INSOMNIA Last Admin: 04/06/19 23:52 Dose: 5 mg - Objective Vital Signs: Vital Signs Temperature 97.7 F 04/07/19 08:55 Pulse Rate 71 04/07/19 08:55 Respiratory Rate 18 04/07/19 08:55 Blood Pressure 140/75 04/07/19 08:55 O2 Sat by Pulse Oximetry (%) 97 04/06/19 21:00 Constitutional: Yes: No Distress, Calm Cardiovascular: Yes: S1, S2 Respiratory: Yes: Regular, CTA Bilaterally Gastrointestinal: Yes: Normal Bowel Sounds, Soft Musculoskeletal: Yes: WNL Extremities: Yes: WNL Neurological: Yes: Alert, Oriented Labs: CBC, BMP 04/05/19 07:45 04/05/19 07:45 Assessment/Plan Problem List - Problems (1) Intractable nausea and vomiting Code(s): R11.2 - NAUSEA WITH VOMITING, UNSPECIFIED (2) Abdominal pain Code(s): R10.9 - UNSPECIFIED ABDOMINAL PAIN (3) Neurogenic bladder Code(s): N31.9 - NEUROMUSCULAR DYSFUNCTION OF BLADDER, UNSPECIFIED fever chills Assessment/Plan continue current mgmt stopped abx
--- NOTE | 2019-04-07 11:42 | DS ---
Physical Examination Vital Signs: Vital Signs Temperature 97.7 F 04/07/19 08:55 Pulse Rate 71 04/07/19 08:55 Respiratory Rate 18 04/07/19 08:55 Blood Pressure 140/75 04/07/19 08:55 O2 Sat by Pulse Oximetry (%) 97 04/06/19 21:00 Constitutional: Yes: No Distress, Calm Cardiovascular: Yes: Regular Rate and Rhythm Respiratory: Yes: CTA Bilaterally Gastrointestinal: Yes: Normal Bowel Sounds, Soft, Tenderness (right flank) Edema: No Labs: CBC, BMP 04/05/19 07:45 04/05/19 07:45 Discharge Summary Problems reviewed: Yes Reason For Visit: INTRACTABLE ABDOMINAL PAIN,INTRACTABLE VOMITING Current Active Problems Intractable abdominal pain (Acute) Intractable nausea and vomiting (Acute) UTI (urinary tract infection) (Acute) Hospital Course: CHIEF COMPLAINT:fever of 102 since Saturday, nausea, lower abdominal pain and lower back pain and suprapubic pain PCP:Dr. Tammy Iglesias Neurologist: Dr. Luis Fernando Vera at [facility] HISTORY OF PRESENT ILLNESS: 49 year old female with a past medical history of multiple sclerosis (last flare up 1 year ago, requiring hospitalization at [facility]), self urinary catheterizations due to neurogenic bladder, chronic back pain, kidney stones, and frequent UTIs who presents today for an evaluation as she has symptoms of fever, nausea, lower abdominal pain and back pain. She reported she has had fever on Saturday with a maximum temperature of 102 and a low grade temperature of 99.5 today. She also reported headache, general body aches, bilateral leg pain and weakness , right sided abdominal pain with radiation to her back and suprapubic pain which is worse especially when she self catherizes herself. She denies chest pain or shortness of breath. as reporetd she had a negative flu swab done at Urgent Care. ER course was notable for: (1) normal WBC, CXR unremarkable, UA negative, elevated lactic acid of 2.5 (2) Renal US with mild dilatation of right renal pelvis, no hydronephrosis (3) CT scan of abdomen and pelvis with no acute findings . (4) Received one dose of IV Rocephin and IV toradol and morphine for pain and IV zofran for nausea Patient is being admitted to Medicine Service for further medical evaluation and management. HOSPITAL COURSE Pt admitted to medsurg-- on iv ceftriaxone and fluids Seen by ID Blood cultures negative urine cultures negative Pain slightly better Seen by Urology-- recommends Urodynamics and bladder testing as outpt Afebrile possible viral etiology for the fever stable for dc home advised to follow up with Neurology and Urology Condition: Fair - Instructions Referrals: Tammy Contreras MD [Primary Care Provider] - Murray Lindquist MD [Staff Physician] - Disposition: HOME - Home Medications Comprehensive Discharge Medication List: Ambulatory Orders Bupropion HCl [Wellbutrin Xl -] 300 mg PO DAILY #0 tab 07/28/13 Ropinirole HCl [Requip -] 1 mg PO HS #0 tablet 07/28/13 Sertraline HCl [Zoloft -] 100 mg PO DAILY #0 tablet 07/28/13 Atorvastatin Ca [Lipitor] 40 mg PO HS 09/26/16 Fingolimod HCl [Gilenya] 0.5 mg PO DAILY 09/26/16 Zolpidem Tartrate [Ambien] 10 mg PO HS 09/26/16 Baclofen [Lioresal -] 20 mg PO BID 10/02/16 Propranolol HCl 20 mg PO HS 04/12/17 Alprazolam [Xanax] 0.25 mg PO BID tablet [facility]D .5 04/15/17 Gabapentin [Neurontin] 600 mg PO HS 08/16/17 Ibuprofen [Motrin -] 800 mg PO PRN PRN 08/16/17 Oxycodone HCl/Acetaminophen [Percocet 5-325 mg Tablet] 1.5 tab PO TID PRN Ondansetron HCl [Zofran] 4 mg PO Q6H #30 tablet 04/07/19 Tramadol HCl 50 mg PO Q12H #14 tablet [facility]D 2 04/07/19
== END 2019-04-07 13:48 | disposition home or self-care (01) | DRG 864 ==
LOC: JER 18:53 → JERBED 04-03 00:39 → J7W 04-03 01:32
PROVIDERS: ADMIT Internal Medicine; ATTEND Internal Medicine
DX: R50.9 Fever, unspecified (principal); G35 Multiple sclerosis; E78.5 Hyperlipidemia, unspecified; F41.8 Other specified anxiety disorders; R11.2 Nausea with vomiting, unspecified; N31.9 Neuromuscular dysfunction of bladder, unspecified
CPT/HCPCS: 36415; 71045-TC-FY; 74176-TC; 76775-TC; 80048; 80053; 81003; 83605; 85025; 87040; 87086; 93005; 93010; 99283-25; J0131; J0475; J7030

== ENCOUNTER 2020-08-18 12:29 | Inpatient (IN) | payer OTHER ==
[2020-08-18] MEDS ORDERED: LACTATED RINGERS SOLUTION 1000 ML INFUS.BAG IV ONE (13:37)
[2020-08-18] MEDS ORDERED: ACETAMINOPHEN 1000 MG/100 ML VIAL (NON FORMULARY) IVPB ONE (13:37)
[2020-08-18] MEDS ORDERED: ACETAMINOPHEN INJECTION 100 ML IVPB ONE (13:38)
[2020-08-18 13:51] LABS: BASO % 0.5 % (0-2.0); EOS % 1.4 % (0-4.5); HEMATOCRIT 35.7 % (32.4-45.2); HEMOGLOBIN 12.1 GM/dL (10.7-15.3); LYMPH % 14.2 % (8-40); MCH 29.3 pg (25.7-33.7); MCHC 33.8 g/dl (32.0-36.0); MEAN CELL VOLUME 86.6 fl (80-96); MEAN PLT VOLUME 8.3 fl (7.5-11.1); MONO % 10.1 % (3.8-10.2); NEUT % 73.8 % (42.8-82.8); PLATELET COUNT 299 K/MM3 (134-434); RBC 4.13 M/mm3 (3.60-5.2); RDW 13.1 % (11.6-15.6); WHITE BLOOD COUNT 4.8 K/mm3 (4.0-10.0)
[2020-08-18 14:03] LABS: PH,URINE 5.5 (5.0-8.0); URINE APPEARANCE CLEAR; URINE BILIRUBIN NEGATIVE (NEGATIVE); URINE COLOR DK YELLOW; URINE GLUCOSE (UA) NEGATIVE (NEGATIVE); URINE KETONE TRACE (NEGATIVE); URINE LEUK ESTERASE NEGATIVE (NEGATIVE); URINE NITRITE NEGATIVE (NEGATIVE); URINE PROTEIN NEGATIVE (NEGATIVE)
[2020-08-18 14:15] LABS: CHLORIDE 107 mmol/L (98-107); SODIUM 142 mmol/L (136-145)
[2020-08-18 14:17] LABS: ALBUMIN 3.9 g/dl (3.4-5.0); ANION GAP 4 MMOL/L (8-16); BLOOD UREA NITROGEN 17.2 mg/dL (7-18); CALCIUM 9.7 mg/dL (8.5-10.1); CO2 31 mmol/L (21-32); GLUCOSE,RANDOM 102 mg/dL (74-106)
[2020-08-18 14:20] LABS: CREATININE 0.7 mg/dL (0.55-1.3); SGOT/AST 27 U/L (15-37); SGPT/ALT 47 U/L (13-61)
[2020-08-18 14:22] LABS: ALK PHOS 79 U/L (45-117); BILIRUBIN,TOTAL 0.4 mg/dL (0.2-1); TOT PROT 6.6 g/dl (6.4-8.2)
[2020-08-18] MEDS ORDERED: morphine CARPU-JECT 4 MG/1 ML DISP.SYRIN IVPUSH ONE (14:40)
[2020-08-18] MEDS ORDERED: morphine SULFATE 4 MG/ML VIAL ONE (14:42)
[2020-08-18] MEDS ORDERED: CEFTRIAXONE 1,000 MG in DEXTROSE 5%-WATER - 50 ML IVPB ONE (14:58)
[2020-08-18] MEDS ORDERED: CEFTRIAXONE 1 GM/50 ML BAG ONE (16:18)
[2020-08-18] MEDS ORDERED: KETOROLAC TROMETHAMINE 15 MG/ML VIAL IVPUSH ONE (16:42)
[2020-08-18] MEDS ORDERED: KETOROLAC TROMETHAMINE 15 MG/ML VIAL ONE (16:56)
[2020-08-18] MEDS ORDERED: oxyCODONE HCL 10 MG SUSTAINED ACTING TABLET ONE (17:33)
[2020-08-18] MEDS: oxyCODONE HCL 10 MG SUSTAINED ACTING TABLET PO SCH (17:37)
[2020-08-18] MEDS ORDERED: ACETAMINOPHEN 325 MG TABLET (FP) ONE (19:47)
[2020-08-18] MEDS ORDERED: oxyCODONE HCL 5 MG TABLET ONE (19:48)
[2020-08-18] MEDS: oxyCODONE HCL 5 MG TABLET PO PRN (19:52)
[2020-08-18] MEDS: ACETAMINOPHEN 325 MG TABLET (FP) PO PRN (19:53)
[2020-08-18] MEDS ORDERED: rOPINIRole HCL 1 MG TABLET (FP) PO SCH (22:00)
[2020-08-18] MEDS ORDERED: PATIENT'S OWN MEDICATION (NON-FORMULARY) (Gabapentin [Neurontin] 600 MG Tablet) PO SCH (22:00)
[2020-08-18] MEDS ORDERED: PATIENT'S OWN MEDICATION (NON-FORMULARY) (Zolpidem Tartrate [Ambien] 10 MG Tablet) PO SCH (22:00)
[2020-08-18] MEDS: BACLOFEN 10 MG TABLET (FP) PO SCH (22:02)
[2020-08-18] MEDS: ATORVASTATIN CA 40 MG TABLET (FP) PO SCH (22:03)
[2020-08-18] MEDS: HEPARIN NA (PORCINE) 5,000 UNITS/ML 1ML VIAL SQ SCH (22:03)
[2020-08-18] MEDS: GABAPENTIN 300 MG CAPSULE PO SCH (22:03)
[2020-08-18 22:43] VITALS: BMI 25.7
[2020-08-18] MEDS: ZOLPIDEM TARTRATE 5 MG TABLET PO SCH (23:58)
[2020-08-19] MEDS: oxyCODONE HCL 10 MG SUSTAINED ACTING TABLET PO SCH ×2 (04:15→16:46)
[2020-08-19] MEDS: GABAPENTIN 300 MG CAPSULE PO SCH ×2 (06:01→22:46)
[2020-08-19 07:19] LABS: BASO % 0.6 % (0-2.0); EOS % 1.8 % (0-4.5); HEMATOCRIT 33.7 % (32.4-45.2); HEMOGLOBIN 11.4 GM/dL (10.7-15.3); LYMPH % 20.4 % (8-40); MCH 29.5 pg (25.7-33.7); MCHC 33.9 g/dl (32.0-36.0); MEAN CELL VOLUME 87.2 fl (80-96); MEAN PLT VOLUME 8.5 fl (7.5-11.1); NEUT % 66.2 % (42.8-82.8); PLATELET COUNT 268 K/MM3 (134-434); RBC 3.86 M/mm3 (3.60-5.2); RDW 13.3 % (11.6-15.6); WHITE BLOOD COUNT 4.2 K/mm3 (4.0-10.0)
[2020-08-19 07:43] LABS: CALCIUM 9.3 mg/dL (8.5-10.1)
[2020-08-19 07:44] LABS: ALBUMIN 3.6 g/dl (3.4-5.0); BLOOD UREA NITROGEN 16.6 mg/dL (7-18); MAGNESIUM 1.9 mg/dL (1.8-2.4)
[2020-08-19 07:47] LABS: BILIRUBIN,TOTAL 0.4 mg/dL (0.2-1); CREATININE 0.7 mg/dL (0.55-1.3)
[2020-08-19 07:48] LABS: TOT PROT 5.8 g/dl (6.4-8.2)
[2020-08-19] MEDS: HEPARIN NA (PORCINE) 5,000 UNITS/ML 1ML VIAL SQ SCH ×2 (09:12→22:46)
[2020-08-19] MEDS: SERTRALINE HCL 50 MG TABLET (FP) PO SCH (09:13)
[2020-08-19] MEDS: BACLOFEN 10 MG TABLET (FP) PO SCH ×2 (09:13→22:46)
[2020-08-19] MEDS: ACETAMINOPHEN 325 MG TABLET (FP) PO PRN (10:55)
[2020-08-19] MEDS: oxyCODONE HCL 5 MG TABLET PO PRN ×2 (10:55→22:48)
[2020-08-19] MEDS: FINGOLIMOD HCL 0.5 MG PO SCH (10:56)
[2020-08-19] MEDS: D5-1/2NS+20 MEQ KCL - 20 MEQ/1,000 ML INFUS.BAG IV SCH (12:59)
[2020-08-19] MEDS: ATORVASTATIN CA 40 MG TABLET (FP) PO SCH (22:46)
[2020-08-19] MEDS: PRAMIPEXOLE DIHYDROCHLORIDE 0.5 MG TABLET PO SCH (22:46)
[2020-08-19] MEDS: ALPRAZolam 0.25 MG TABLET PO PRN (23:08)
[2020-08-19] MEDS: ZOLPIDEM TARTRATE 5 MG TABLET PO SCH (23:08)
[2020-08-20] MEDS: oxyCODONE HCL 10 MG SUSTAINED ACTING TABLET PO SCH ×2 (06:03→18:08)
[2020-08-20] MEDS: GABAPENTIN 300 MG CAPSULE PO SCH ×2 (06:03→21:11)
[2020-08-20] MEDS ORDERED: PRAMIPEXOLE DIHYDROCHLORIDE 0.25 MG TABLET PO SCH (08:00)
[2020-08-20 08:04] LABS: IRON SERUM 95 ug/dL (50-175)
[2020-08-20 08:05] LABS: TOTAL IRON BINDING CAPACITY 348 ug/dL (250-450)
[2020-08-20] MEDS: HEPARIN NA (PORCINE) 5,000 UNITS/ML 1ML VIAL SQ SCH ×2 (10:20→21:10)
[2020-08-20] MEDS: PRAMIPEXOLE DIHYDROCHLORIDE 0.25 MG TABLET PO SCH ×2 (10:20→15:52)
[2020-08-20] MEDS: BACLOFEN 10 MG TABLET (FP) PO SCH ×2 (10:24→21:08)
[2020-08-20] MEDS: SERTRALINE HCL 50 MG TABLET (FP) PO SCH (10:24)
[2020-08-20] MEDS: oxyCODONE HCL 5 MG TABLET PO PRN (13:52)
[2020-08-20] MEDS: ACETAMINOPHEN 325 MG TABLET (FP) PO PRN (14:21)
[2020-08-20] MEDS: D5-1/2NS+20 MEQ KCL - 20 MEQ/1,000 ML INFUS.BAG IV SCH (14:23)
[2020-08-20] MEDS: FINGOLIMOD HCL 0.5 MG PO SCH (15:49)
[2020-08-20] MEDS ORDERED: PT OWN MED DRAWER 7, Y5N ONE (16:01)
[2020-08-20] MEDS: PRAMIPEXOLE DIHYDROCHLORIDE 0.5 MG TABLET PO SCH (21:09)
[2020-08-20] MEDS: ATORVASTATIN CA 40 MG TABLET (FP) PO SCH (21:10)
[2020-08-20] MEDS: ZOLPIDEM TARTRATE 5 MG TABLET PO SCH (22:54)
[2020-08-20] MEDS: ALPRAZolam 0.25 MG TABLET PO PRN (22:54)
[2020-08-21] MEDS: ACETAMINOPHEN 325 MG TABLET (FP) PO PRN ×3 (00:38→18:05)
[2020-08-21] MEDS: oxyCODONE HCL 5 MG TABLET PO PRN ×3 (00:39→18:04)
[2020-08-21] MEDS: GABAPENTIN 300 MG CAPSULE PO SCH ×2 (06:42→21:52)
[2020-08-21] MEDS: oxyCODONE HCL 10 MG SUSTAINED ACTING TABLET PO SCH ×2 (06:42→16:14)
[2020-08-21] MEDS: BACLOFEN 10 MG TABLET (FP) PO SCH ×2 (09:06→21:51)
[2020-08-21] MEDS: FINGOLIMOD HCL 0.5 MG PO SCH (09:06)
[2020-08-21] MEDS: HEPARIN NA (PORCINE) 5,000 UNITS/ML 1ML VIAL SQ SCH ×2 (09:07→21:51)
[2020-08-21] MEDS: SERTRALINE HCL 50 MG TABLET (FP) PO SCH (09:08)
[2020-08-21] MEDS: PRAMIPEXOLE DIHYDROCHLORIDE 0.25 MG TABLET PO SCH ×2 (09:09→16:12)
[2020-08-21 11:26] LABS: BASO % 0.6 % (0-2.0); EOS % 2.8 % (0-4.5); HEMATOCRIT 34.2 % (32.4-45.2); HEMOGLOBIN 11.8 GM/dL (10.7-15.3); LYMPH % 20.4 % (8-40); MCH 29.8 pg (25.7-33.7); MCHC 34.6 g/dl (32.0-36.0); MEAN CELL VOLUME 86.3 fl (80-96); MEAN PLT VOLUME 8.5 fl (7.5-11.1); NEUT % 60.2 % (42.8-82.8); PLATELET COUNT 271 K/MM3 (134-434); RBC 3.96 M/mm3 (3.60-5.2); RDW 13.4 % (11.6-15.6); WHITE BLOOD COUNT 3.5 K/mm3 (4.0-10.0)
[2020-08-21 12:03] LABS: CHLORIDE 107 mmol/L (98-107); ERYTHROCYTE SEDIMENTATION RATE 10 mm/hr (0-30); SODIUM 143 mmol/L (136-145)
[2020-08-21 12:07] LABS: ALBUMIN 3.7 g/dl (3.4-5.0); CALCIUM 9.2 mg/dL (8.5-10.1)
[2020-08-21 12:09] LABS: ANION GAP 5 MMOL/L (8-16); BLOOD UREA NITROGEN 11.7 mg/dL (7-18); CO2 31 mmol/L (21-32); GLUCOSE,RANDOM 69 mg/dL (74-106)
[2020-08-21 12:10] LABS: URIC ACID 2.1 mg/dL (2.6-7.2)
[2020-08-21 12:11] LABS: CREATININE 0.7 mg/dL (0.55-1.3); SGOT/AST 44 U/L (15-37); SGPT/ALT 52 U/L (13-61)
[2020-08-21 12:12] LABS: BILIRUBIN,TOTAL 0.3 mg/dL (0.2-1); TOT PROT 6.3 g/dl (6.4-8.2)
[2020-08-21 12:14] LABS: ALK PHOS 80 U/L (45-117)
[2020-08-21] MEDS ORDERED: IBUPROFEN 800 MG/8 ML IJ IVPB ONE (12:15)
[2020-08-21] MEDS: POLYETHYLENE GLYCOL 3350 119 GM BTL PO SCH (12:30)
[2020-08-21] MEDS: D5-1/2NS+20 MEQ KCL - 20 MEQ/1,000 ML INFUS.BAG IV SCH (12:33)
[2020-08-21] MEDS: IBUPROFEN 800 MG/8 ML IJ IVPB PRN (21:20)
[2020-08-21] MEDS: PRAMIPEXOLE DIHYDROCHLORIDE 0.5 MG TABLET PO SCH (21:51)
[2020-08-21] MEDS: ATORVASTATIN CA 40 MG TABLET (FP) PO SCH (21:52)
[2020-08-21] MEDS: ZOLPIDEM TARTRATE 5 MG TABLET PO SCH (23:00)
[2020-08-21] MEDS: ALPRAZolam 0.25 MG TABLET PO PRN (23:00)
[2020-08-22] MEDS: oxyCODONE HCL 10 MG SUSTAINED ACTING TABLET PO SCH (05:36)
[2020-08-22] MEDS: ACETAMINOPHEN 325 MG TABLET (FP) PO PRN ×2 (05:37→12:22)
[2020-08-22] MEDS: oxyCODONE HCL 5 MG TABLET PO PRN ×2 (05:37→12:22)
[2020-08-22] MEDS: D5-1/2NS+20 MEQ KCL - 20 MEQ/1,000 ML INFUS.BAG IV SCH (05:38)
[2020-08-22] MEDS: GABAPENTIN 300 MG CAPSULE PO SCH (06:10)
[2020-08-22 08:22] VITALS: TEMP 98.4
[2020-08-22] MEDS: IBUPROFEN 800 MG/8 ML IJ IVPB PRN (09:04)
[2020-08-22] MEDS: BACLOFEN 10 MG TABLET (FP) PO SCH (09:11)
[2020-08-22] MEDS: PRAMIPEXOLE DIHYDROCHLORIDE 0.25 MG TABLET PO SCH ×2 (09:11→16:41)
[2020-08-22] MEDS: FINGOLIMOD HCL 0.5 MG PO SCH (09:11)
[2020-08-22] MEDS: SERTRALINE HCL 50 MG TABLET (FP) PO SCH (09:12)
[2020-08-22] MEDS: HEPARIN NA (PORCINE) 5,000 UNITS/ML 1ML VIAL SQ SCH (09:13)
[2020-08-22] MEDS: POLYETHYLENE GLYCOL 3350 119 GM BTL PO SCH (09:17)
[2020-08-22 14:31] VITALS: BP 122/65; PULSE 77
[2020-08-24 00:08] LABS: CYCLIC CITRULLINE PEPTIDE AB <1 units (0-19)
== END 2020-08-22 17:49 | disposition home or self-care (01) | DRG 392 ==
LOC: JER 12:29 → JERBED 15:11 → J7W 21:52
PROVIDERS: ADMIT Internal Medicine; ATTEND Internal Medicine
DX: R10.31 Right lower quadrant pain (principal); R30.0 Dysuria; K82.4 Cholesterolosis of gallbladder; G35 Multiple sclerosis; N31.9 Neuromuscular dysfunction of bladder, unspecified; G25.81 Restless legs syndrome; R53.1 Weakness
CPT/HCPCS: 36415; 71046-TC-FY; 74177-TC; 76705-TC; 76775-TC; 80053; 81003; 83540; 83550; 83735; 84443; 84550; 85025; 85651; 86038; 86140; 86200; 86225; 86431; 87040; 87086; 99285-25; C9803; J0131; J0475; J1644; Q9967; U0003; U0005

== ENCOUNTER 2020-11-09 15:49 | Inpatient (IN) | payer OTHER ==
[2020-11-09 17:01] LABS: URINE APPEARANCE CLEAR; URINE BILIRUBIN NEGATIVE (NEGATIVE); URINE COLOR YELLOW; URINE GLUCOSE (UA) NEGATIVE (NEGATIVE); URINE KETONE NEGATIVE (NEGATIVE); URINE LEUK ESTERASE NEGATIVE (NEGATIVE); URINE NITRITE NEGATIVE (NEGATIVE); URINE PROTEIN NEGATIVE (NEGATIVE); URINE UROBILINOGEN 0.2 mg/dL (0.2-1.0)
[2020-11-09] MEDS ORDERED: morphine SULFATE 4 MG/ML VIAL IVPUSH ONE (17:30)
[2020-11-09] MEDS ORDERED: SODIUM CHLORIDE 0.9% 500 ML INFUS.BAG IV ONE (17:30)
[2020-11-09] MEDS ORDERED: FAMOTIDINE 20 MG/50 ML IVPB 20 MG/50 ML MG IVPB ONE ×2 (17:31→18:25)
[2020-11-09] MEDS ORDERED: ONDANSETRON 4 MG/2 ML VIAL IVPUSH ONE (17:31)
[2020-11-09] MEDS ORDERED: morphine SULFATE 4 MG/ML VIAL ONE ×2 (18:25→21:16)
[2020-11-09] MEDS ORDERED: ONDANSETRON 4 MG/2 ML VIAL ONE (18:25)
[2020-11-09 19:12] LABS: BASO % 0.3 % (0-2.0); EOS % 3.4 % (0-4.5); HEMATOCRIT 39.1 % (32.4-45.2); HEMOGLOBIN 13.5 GM/dL (10.7-15.3); LYMPH % 7.6 % (8-40); MCHC 34.6 g/dl (32.0-36.0); MEAN CELL VOLUME 83.7 fl (80-96); MEAN PLT VOLUME 8.7 fl (7.5-11.1); MONO % 12.6 % (3.8-10.2); NEUT % 76.1 % (42.8-82.8); PLATELET COUNT 264 10^3/uL (134-434); RBC 4.67 M/mm3 (3.60-5.2); RDW 13.4 % (11.6-15.6); WHITE BLOOD COUNT 4.4 K/mm3 (4.0-10.0)
[2020-11-09 19:35] LABS: ALBUMIN 4.6 g/dl (3.4-5.0); CALCIUM 9.9 mg/dL (8.5-10.1)
[2020-11-09 19:39] LABS: CREATININE 0.9 mg/dL (0.55-1.3)
[2020-11-09 19:40] LABS: BILIRUBIN,TOTAL 0.6 mg/dL (0.2-1); TOT PROT 7.8 g/dl (6.4-8.2)
[2020-11-09 19:41] LABS: BLOOD UREA NITROGEN 11.8 mg/dL (7-18)
[2020-11-09] MEDS ORDERED: morphine CARPU-JECT 4 MG/1 ML DISP.SYRIN IVPUSH ONE (21:13)
[2020-11-09] MEDS ORDERED: LACTATED RINGERS SOLUTION 1000 ML INFUS.BAG IV ONE (22:45)
[2020-11-10] MEDS ORDERED: ZOLPIDEM TARTRATE 5 MG TABLET PO ONE (01:13)
[2020-11-10] MEDS ORDERED: ALPRAZolam 0.25 MG TABLET PO ONE (01:13)
[2020-11-10] MEDS ORDERED: PRAMIPEXOLE DIHYDROCHLORIDE 0.25 MG TABLET PO ONE (01:14)
[2020-11-10] MEDS ORDERED: BACLOFEN 10 MG TABLET (FP) PO ONE (01:15)
[2020-11-10] MEDS ORDERED: GABAPENTIN 300 MG CAPSULE PO ONE (01:15)
[2020-11-10] MEDS ORDERED: POLYETHYLENE GLYCOL 3350 119 GM BTL PO PRN (01:18)
[2020-11-10] MEDS ORDERED: BACLOFEN 10 MG TABLET (FP) ONE (01:24)
[2020-11-10] MEDS ORDERED: ZOLPIDEM TARTRATE 5 MG TABLET ONE (01:24)
[2020-11-10] MEDS ORDERED: GABAPENTIN 100 MG CAPSULE ONE (01:25)
[2020-11-10] MEDS ORDERED: propRANOLol HCL 10 MG TABLET ONE (01:25)
[2020-11-10] MEDS: BACLOFEN 10 MG TABLET (FP) PO SCH ×3 (02:12→21:28)
[2020-11-10] MEDS ORDERED: oxyCODONE HCL 10 MG SUSTAINED ACTING TABLET ONE (02:14)
[2020-11-10] MEDS: oxyCODONE HCL 10 MG SUSTAINED ACTING TABLET PO SCH ×2 (02:17→14:10)
[2020-11-10] MEDS: DEXTROSE 5%-NORMAL SALINE 1,000 ML IV SCH (02:26)
[2020-11-10] MEDS: GABAPENTIN 300 MG CAPSULE PO SCH ×2 (06:31→21:28)
[2020-11-10] MEDS: oxyCODONE HCL 5 MG TABLET PO PRN ×2 (06:59→21:29)
[2020-11-10] MEDS ORDERED: PT OWN MED DRAWER 7, Y5N ONE ×4 (07:52→15:38)
[2020-11-10 08:45] LABS: HEMATOCRIT 31.5 % (32.4-45.2); HEMOGLOBIN 10.9 GM/dL (10.7-15.3); MCH 29.1 pg (25.7-33.7); MCHC 34.6 g/dl (32.0-36.0); MEAN PLT VOLUME 8.6 fl (7.5-11.1); PLATELET COUNT 228 10^3/uL (134-434); RBC 3.75 M/mm3 (3.60-5.2); RDW 12.9 % (11.6-15.6); WHITE BLOOD COUNT 3.6 K/mm3 (4.0-10.0)
[2020-11-10 08:52] LABS: INR 0.95 (0.83-1.09); PROTHROMBIN TIME (PATIENT) 11.5 SEC (9.7-13.0)
[2020-11-10 08:55] LABS: ACTIVATED PTT 30.2 SECONDS (25.2-36.5)
[2020-11-10] MEDS: ENOXAPARIN NA (PORCINE) 40 MG/0.4 ML DISP.SYRIN SQ SCH (09:03)
[2020-11-10] MEDS: SERTRALINE HCL 50 MG TABLET (FP) PO SCH (09:03)
[2020-11-10 09:11] LABS: BLOOD UREA NITROGEN 9.5 mg/dL (7-18); CALCIUM 8.8 mg/dL (8.5-10.1)
[2020-11-10 09:16] LABS: BILIRUBIN,TOTAL 0.5 mg/dL (0.2-1)
[2020-11-10 09:30] LABS: ALBUMIN 3.2 g/dl (3.4-5.0); TOT PROT 5.6 g/dl (6.4-8.2)
[2020-11-10] MEDS: ACETAMINOPHEN 325 MG TABLET (FP) PO PRN ×2 (09:47→21:40)
[2020-11-10 09:48] LABS: ANISOCYTOSIS 0; HELMET CELLS 0; HOWELL-JOLLY BODIES 0; MACROCYTOSIS 0; OVALOCYTE 0; PLATELET ESTIMATE NORMAL; ROULEAU 0; SICKELED CELLS 0; TARGET CELLS 0; TEAR DROP CELLS 0; TOXIC GRANULATION 0
[2020-11-10] MEDS ORDERED: PANTOPRAZOLE 40 MG TABLET PO SCH (10:00)
[2020-11-10] MEDS: PRAMIPEXOLE DIHYDROCHLORIDE 0.25 MG TABLET PO SCH ×2 (10:44→15:39)
[2020-11-10] MEDS: ATORVASTATIN CA 40 MG TABLET (FP) PO SCH (21:28)
[2020-11-10] MEDS: ALPRAZolam 0.25 MG TABLET PO SCH (21:28)
[2020-11-10] MEDS: propRANOLol HCL 10 MG TABLET PO SCH (21:31)
[2020-11-10] MEDS: PRAMIPEXOLE DIHYDROCHLORIDE 0.5 MG TABLET PO SCH (21:32)
[2020-11-10] MEDS ORDERED: propRANOLol HCL 10 MG TABLET PO SCH (22:00)
[2020-11-10] MEDS ORDERED: PRAMIPEXOLE DIHYDROCHLORIDE 0.5 MG TABLET PO SCH (22:00)
[2020-11-10] MEDS ORDERED: PATIENT'S OWN MEDICATION (NON-FORMULARY) (Gabapentin [Neurontin] 600 MG Tablet) PO SCH (22:00)
[2020-11-11] MEDS: oxyCODONE HCL 10 MG SUSTAINED ACTING TABLET PO SCH ×2 (01:19→13:29)
[2020-11-11] MEDS: oxyCODONE HCL 5 MG TABLET PO PRN ×3 (06:37→22:14)
[2020-11-11] MEDS: GABAPENTIN 300 MG CAPSULE PO SCH ×2 (06:38→22:13)
[2020-11-11] MEDS: PRAMIPEXOLE DIHYDROCHLORIDE 0.25 MG TABLET PO SCH ×2 (09:25→16:35)
[2020-11-11] MEDS ORDERED: PT OWN MED DRAWER 7, Y5N ONE ×3 (11:11→16:32)
[2020-11-11] MEDS: BACLOFEN 10 MG TABLET (FP) PO SCH ×2 (11:14→22:13)
[2020-11-11] MEDS: ENOXAPARIN NA (PORCINE) 40 MG/0.4 ML DISP.SYRIN SQ SCH (11:15)
[2020-11-11] MEDS: SERTRALINE HCL 50 MG TABLET (FP) PO SCH (11:15)
[2020-11-11] MEDS: ACETAMINOPHEN 325 MG TABLET (FP) PO PRN (16:36)
[2020-11-11 20:34] LABS: BASO % 0.3 % (0-2.0); EOS % 3.3 % (0-4.5); HEMATOCRIT 32.8 % (32.4-45.2); HEMOGLOBIN 11.2 GM/dL (10.7-15.3); LYMPH % 11.1 % (8-40); MCH 28.6 pg (25.7-33.7); MCHC 34.3 g/dl (32.0-36.0); MEAN CELL VOLUME 83.5 fl (80-96); MEAN PLT VOLUME 8.7 fl (7.5-11.1); MONO % 13.5 % (3.8-10.2); NEUT % 71.8 % (42.8-82.8); PLATELET COUNT 243 10^3/uL (134-434); RBC 3.93 M/mm3 (3.60-5.2); RDW 13.5 % (11.6-15.6); WHITE BLOOD COUNT 4.2 K/mm3 (4.0-10.0)
[2020-11-11 20:47] LABS: CALCIUM 8.8 mg/dL (8.5-10.1)
[2020-11-11 20:48] LABS: ALBUMIN 3.6 g/dl (3.4-5.0); BLOOD UREA NITROGEN 6.4 mg/dL (7-18)
[2020-11-11 20:53] LABS: BILIRUBIN,TOTAL 0.5 mg/dL (0.2-1); TOT PROT 5.6 g/dl (6.4-8.2)
[2020-11-11] MEDS: ALPRAZolam 0.25 MG TABLET PO SCH (22:14)
[2020-11-11] MEDS: ATORVASTATIN CA 40 MG TABLET (FP) PO SCH (22:14)
[2020-11-11] MEDS: propRANOLol HCL 10 MG TABLET PO SCH (22:21)
[2020-11-11] MEDS: PRAMIPEXOLE DIHYDROCHLORIDE 0.5 MG TABLET PO SCH (22:22)
[2020-11-11] MEDS: ZOLPIDEM TARTRATE 5 MG TABLET PO PRN (23:24)
[2020-11-12] MEDS: oxyCODONE HCL 10 MG SUSTAINED ACTING TABLET PO SCH ×2 (02:24→13:04)
[2020-11-12] MEDS: GABAPENTIN 300 MG CAPSULE PO SCH ×2 (06:51→21:30)
[2020-11-12] MEDS ORDERED: PT OWN MED DRAWER 7, Y5N ONE ×4 (08:51→21:22)
[2020-11-12] MEDS: PRAMIPEXOLE DIHYDROCHLORIDE 0.25 MG TABLET PO SCH ×2 (08:54→17:12)
[2020-11-12] MEDS: SERTRALINE HCL 50 MG TABLET (FP) PO SCH (09:09)
[2020-11-12] MEDS: oxyCODONE HCL 5 MG TABLET PO PRN ×3 (09:10→23:22)
[2020-11-12] MEDS: BACLOFEN 10 MG TABLET (FP) PO SCH ×2 (09:10→21:31)
[2020-11-12] MEDS: ACETAMINOPHEN 325 MG TABLET (FP) PO PRN (09:10)
[2020-11-12] MEDS: ENOXAPARIN NA (PORCINE) 40 MG/0.4 ML DISP.SYRIN SQ SCH (09:11)
[2020-11-12] MEDS: ALPRAZolam 0.25 MG TABLET PO SCH (21:30)
[2020-11-12] MEDS: propRANOLol HCL 10 MG TABLET PO SCH (21:31)
[2020-11-12] MEDS: ATORVASTATIN CA 40 MG TABLET (FP) PO SCH (21:31)
[2020-11-12] MEDS: ZOLPIDEM TARTRATE 5 MG TABLET PO PRN (21:32)
[2020-11-12] MEDS: DEXTROSE 5%-NORMAL SALINE 1,000 ML IV SCH (21:32)
[2020-11-12] MEDS ORDERED: SENNOSIDES 8.6MG TABLET (FP) PO PRN (21:32)
[2020-11-12] MEDS: PRAMIPEXOLE DIHYDROCHLORIDE 0.5 MG TABLET PO SCH (21:32)
[2020-11-12] MEDS ORDERED: DOCUSATE SODIUM 100 MG CAPSULE (FP) PO PRN (21:33)
[2020-11-13] MEDS: DEXTROSE 5%-NORMAL SALINE 1,000 ML IV SCH ×2 (02:06→22:05)
[2020-11-13] MEDS: oxyCODONE HCL 10 MG SUSTAINED ACTING TABLET PO SCH ×2 (02:09→14:55)
[2020-11-13] MEDS: GABAPENTIN 300 MG CAPSULE PO SCH ×2 (06:24→22:04)
[2020-11-13] MEDS: ACETAMINOPHEN 325 MG TABLET (FP) PO PRN (06:34)
[2020-11-13] MEDS ORDERED: PT OWN MED DRAWER 7, Y5N ONE (08:57)
[2020-11-13] MEDS: PRAMIPEXOLE DIHYDROCHLORIDE 0.25 MG TABLET PO SCH ×2 (09:00→15:10)
[2020-11-13] MEDS: SERTRALINE HCL 50 MG TABLET (FP) PO SCH (10:15)
[2020-11-13] MEDS: MORPHINE SULFATE 2 MG/ML VIAL IVPUSH PRN ×2 (10:16→20:48)
[2020-11-13] MEDS: ENOXAPARIN NA (PORCINE) 40 MG/0.4 ML DISP.SYRIN SQ SCH (10:16)
[2020-11-13] MEDS: BACLOFEN 10 MG TABLET (FP) PO SCH ×2 (10:16→22:04)
[2020-11-13] MEDS ORDERED: BISACODYL 5 MG TABLET.DR (FP) PO ONE (16:00)
[2020-11-13] MEDS: PEG 3350/NA SULF BICARB CL/KCL 4000 ML SOLN.RECON PO ONE (16:38)
[2020-11-13] MEDS: ONDANSETRON 4 MG/2 ML VIAL IVPB PRN (16:44)
[2020-11-13] MEDS: ZOLPIDEM TARTRATE 5 MG TABLET PO PRN (22:04)
[2020-11-13] MEDS: propRANOLol HCL 10 MG TABLET PO SCH (22:04)
[2020-11-13] MEDS: ATORVASTATIN CA 40 MG TABLET (FP) PO SCH (22:04)
[2020-11-13] MEDS: ALPRAZolam 0.25 MG TABLET PO SCH (22:04)
[2020-11-13] MEDS: PRAMIPEXOLE DIHYDROCHLORIDE 0.5 MG TABLET PO SCH (22:05)
[2020-11-14] MEDS: oxyCODONE HCL 10 MG SUSTAINED ACTING TABLET PO SCH ×2 (01:37→15:19)
[2020-11-14] MEDS: DEXTROSE 5%-NORMAL SALINE 1,000 ML IV SCH ×2 (06:45→15:51)
[2020-11-14] MEDS: GABAPENTIN 300 MG CAPSULE PO SCH ×2 (06:45→21:13)
[2020-11-14 09:12] LABS: BASO % 0.3 % (0-2.0); EOS % 2.1 % (0-4.5); HEMATOCRIT 36.8 % (32.4-45.2); HEMOGLOBIN 12.6 GM/dL (10.7-15.3); LYMPH % 12.6 % (8-40); MCH 28.8 pg (25.7-33.7); MCHC 34.3 g/dl (32.0-36.0); MEAN CELL VOLUME 83.9 fl (80-96); MEAN PLT VOLUME 9.2 fl (7.5-11.1); MONO % 11.3 % (3.8-10.2); NEUT % 73.7 % (42.8-82.8); PLATELET COUNT 321 10^3/uL (134-434); RBC 4.39 M/mm3 (3.60-5.2); RDW 13.3 % (11.6-15.6); WHITE BLOOD COUNT 4.4 K/mm3 (4.0-10.0)
[2020-11-14 09:30] LABS: BLOOD UREA NITROGEN 6.4 mg/dL (7-18); CALCIUM 9.4 mg/dL (8.5-10.1)
[2020-11-14 09:33] LABS: CREATININE 0.8 mg/dL (0.55-1.3)
[2020-11-14 09:35] LABS: BILIRUBIN,TOTAL 0.6 mg/dL (0.2-1)
[2020-11-14] MEDS: BACLOFEN 10 MG TABLET (FP) PO SCH ×2 (09:49→21:12)
[2020-11-14] MEDS: SERTRALINE HCL 50 MG TABLET (FP) PO SCH (09:50)
[2020-11-14] MEDS: PRAMIPEXOLE DIHYDROCHLORIDE 0.25 MG TABLET PO SCH ×2 (09:51→15:22)
[2020-11-14] MEDS: MORPHINE SULFATE 2 MG/ML VIAL IVPUSH PRN ×2 (10:02→18:04)
[2020-11-14] MEDS: ENOXAPARIN NA (PORCINE) 40 MG/0.4 ML DISP.SYRIN SQ SCH (10:04)
[2020-11-14] MEDS ORDERED: PT OWN MED DRAWER 7, Y5N ONE ×2 (15:21→21:00)
[2020-11-14] MEDS: ATORVASTATIN CA 40 MG TABLET (FP) PO SCH (21:12)
[2020-11-14] MEDS: ALPRAZolam 0.25 MG TABLET PO SCH (21:13)
[2020-11-14] MEDS: oxyCODONE HCL 5 MG TABLET PO PRN (22:33)
[2020-11-14] MEDS: PRAMIPEXOLE DIHYDROCHLORIDE 0.5 MG TABLET PO SCH (22:34)
[2020-11-14] MEDS: ACETAMINOPHEN 325 MG TABLET (FP) PO PRN (23:27)
[2020-11-15] MEDS: DEXTROSE 5%-NORMAL SALINE 1,000 ML IV SCH ×2 (00:01→11:25)
[2020-11-15] MEDS: oxyCODONE HCL 10 MG SUSTAINED ACTING TABLET PO SCH ×2 (01:39→13:51)
[2020-11-15] MEDS: MORPHINE SULFATE 2 MG/ML VIAL IVPUSH PRN ×3 (03:24→21:04)
[2020-11-15] MEDS: GABAPENTIN 300 MG CAPSULE PO SCH ×2 (06:37→21:06)
[2020-11-15] MEDS: oxyCODONE HCL 5 MG TABLET PO PRN (09:01)
[2020-11-15] MEDS: ACETAMINOPHEN 325 MG TABLET (FP) PO PRN ×2 (09:02→22:21)
[2020-11-15] MEDS: ENOXAPARIN NA (PORCINE) 40 MG/0.4 ML DISP.SYRIN SQ SCH (09:03)
[2020-11-15] MEDS: SERTRALINE HCL 50 MG TABLET (FP) PO SCH (09:03)
[2020-11-15] MEDS: BACLOFEN 10 MG TABLET (FP) PO SCH ×2 (09:03→21:06)
[2020-11-15] MEDS: PRAMIPEXOLE DIHYDROCHLORIDE 0.25 MG TABLET PO SCH ×2 (09:04→14:28)
[2020-11-15] MEDS ORDERED: PT OWN MED DRAWER 7, Y5N ONE (20:50)
[2020-11-15] MEDS: PRAMIPEXOLE DIHYDROCHLORIDE 0.5 MG TABLET PO SCH (21:05)
[2020-11-15] MEDS: ALPRAZolam 0.25 MG TABLET PO SCH (21:05)
[2020-11-15] MEDS: ATORVASTATIN CA 40 MG TABLET (FP) PO SCH (21:06)
[2020-11-16] MEDS: oxyCODONE HCL 10 MG SUSTAINED ACTING TABLET PO SCH ×2 (00:54→14:28)
[2020-11-16] MEDS: DEXTROSE 5%-NORMAL SALINE 1,000 ML IV SCH ×2 (00:55→06:50)
[2020-11-16] MEDS: ONDANSETRON 4 MG/2 ML VIAL IVPB PRN (03:25)
[2020-11-16] MEDS: oxyCODONE HCL 5 MG TABLET PO PRN (03:25)
[2020-11-16] MEDS: MORPHINE SULFATE 2 MG/ML VIAL IVPUSH PRN (06:07)
[2020-11-16] MEDS: GABAPENTIN 300 MG CAPSULE PO SCH ×2 (06:47→23:00)
[2020-11-16] MEDS ORDERED: oxyCODONE HCL 5 MG TABLET PO PRN (11:29)
[2020-11-16] MEDS ORDERED: PT OWN MED DRAWER 7, Y5N ONE ×3 (11:31→22:12)
[2020-11-16] MEDS: BACLOFEN 10 MG TABLET (FP) PO SCH ×2 (11:51→22:59)
[2020-11-16] MEDS: SERTRALINE HCL 50 MG TABLET (FP) PO SCH (11:51)
[2020-11-16] MEDS: ENOXAPARIN NA (PORCINE) 40 MG/0.4 ML DISP.SYRIN SQ SCH (11:51)
[2020-11-16] MEDS: PRAMIPEXOLE DIHYDROCHLORIDE 0.25 MG TABLET PO SCH ×2 (11:52→16:58)
[2020-11-16] MEDS ORDERED: POLYETHYLENE GLYCOL (HEALTHYLAX) 3350 17 GM PACKET PO PRN (16:46)
[2020-11-16 17:12] VITALS: BMI 26.3
[2020-11-16] MEDS: morphine SULFATE 4 MG/ML VIAL IVPUSH PRN (18:50)
[2020-11-16] MEDS ORDERED: ZOLPIDEM TARTRATE 5 MG TABLET PO ONE ×2 (22:22→23:08)
[2020-11-16] MEDS: ALPRAZolam 0.25 MG TABLET PO SCH (23:00)
[2020-11-16] MEDS: ATORVASTATIN CA 40 MG TABLET (FP) PO SCH (23:00)
[2020-11-16] MEDS: PRAMIPEXOLE DIHYDROCHLORIDE 0.5 MG TABLET PO SCH (23:00)
[2020-11-17] MEDS: oxyCODONE HCL 10 MG SUSTAINED ACTING TABLET PO SCH ×2 (01:02→14:32)
[2020-11-17] MEDS: DEXTROSE 5%-NORMAL SALINE 1,000 ML IV SCH (05:37)
[2020-11-17] MEDS: morphine SULFATE 4 MG/ML VIAL IVPUSH PRN (05:38)
[2020-11-17] MEDS: GABAPENTIN 300 MG CAPSULE PO SCH (06:03)
[2020-11-17 08:59] LABS: BASO % 0.4 % (0-2.0); EOS % 1.8 % (0-4.5); HEMOGLOBIN 12.8 GM/dL (10.7-15.3); MCH 29.1 pg (25.7-33.7); MCHC 34.4 g/dl (32.0-36.0); MEAN CELL VOLUME 84.4 fl (80-96); MEAN PLT VOLUME 8.9 fl (7.5-11.1); MONO % 10.3 % (3.8-10.2); NEUT % 75.5 % (42.8-82.8); PLATELET COUNT 313 10^3/uL (134-434); RBC 4.39 M/mm3 (3.60-5.2); RDW 13.5 % (11.6-15.6); WHITE BLOOD COUNT 4.9 K/mm3 (4.0-10.0)
[2020-11-17 09:07] LABS: INR 0.97 (0.83-1.09); PROTHROMBIN TIME (PATIENT) 11.9 SEC (9.7-13.0)
[2020-11-17 09:16] LABS: BLOOD UREA NITROGEN 10.4 mg/dL (7-18); CALCIUM 9.3 mg/dL (8.5-10.1)
[2020-11-17 09:20] LABS: CREATININE 0.9 mg/dL (0.55-1.3)
[2020-11-17] MEDS ORDERED: PANTOPRAZOLE 20 MG TABLET PO SCH (10:00)
[2020-11-17] MEDS ORDERED: ALPRAZolam 0.25 MG TABLET PO PRN (10:17)
[2020-11-17] MEDS: PRAMIPEXOLE DIHYDROCHLORIDE 0.25 MG TABLET PO SCH (11:36)
[2020-11-17] MEDS: BACLOFEN 10 MG TABLET (FP) PO SCH (11:37)
[2020-11-17] MEDS: SERTRALINE HCL 50 MG TABLET (FP) PO SCH (11:39)
[2020-11-17] MEDS: ENOXAPARIN NA (PORCINE) 40 MG/0.4 ML DISP.SYRIN SQ SCH (11:39)
[2020-11-17 12:52] VITALS: BP 120/80; PULSE 78; TEMP 98
== END 2020-11-17 15:50 | disposition home health service (06) | DRG 395 ==
LOC: JER 15:49 → JERBED 23:25 → J8W 11-10 02:59
PROVIDERS: ADMIT Internal Medicine; ATTEND Internal Medicine
PROC: 0DJD8ZZ Inspection of Lower Intestinal Tract, Via Natural or Artificial Opening Endoscopic (ICD-10-PCS; principal; 2020-11-14 11:00)
PROC: 0DB58ZX Excision of Esophagus, Via Natural or Artificial Opening Endoscopic, Diagnostic (ICD-10-PCS; 2020-11-17)
PROC: 0DB98ZX Excision of Duodenum, Via Natural or Artificial Opening Endoscopic, Diagnostic (ICD-10-PCS; 2020-11-17)
PROC: 0DB68ZX Excision of Stomach, Via Natural or Artificial Opening Endoscopic, Diagnostic (ICD-10-PCS; 2020-11-17)
DX: K63.9 Disease of intestine, unspecified (principal); R19.7 Diarrhea, unspecified; K64.8 Other hemorrhoids; K21.00 Gastro-esophageal reflux disease with esophagitis, without bleeding; K29.80 Duodenitis without bleeding; E78.5 Hyperlipidemia, unspecified; R33.9 Retention of urine, unspecified; K82.4 Cholesterolosis of gallbladder; G35 Multiple sclerosis
CPT/HCPCS: 36415; 71045-TC-FY; 74177-TC; 76705-TC; 78226-TC; 80048; 80053; 81003; 83690; 85025; 85610; 85730; 86140; 86704; 86705; 86709; 86803; 86850; 86900; 86901; 87086; 87324; 87340; 87449; 99285-25; A9537; C9803; J0475; Q9967; U0003; U0005

== ENCOUNTER 2021-03-20 10:46 | Emergency (ER) | payer OTHER ==
[2021-03-20 10:48] VITALS: PULSE 96; BMI 25.8
[2021-03-20] MEDS ORDERED: ACETAMINOPHEN 325 MG TABLET (FP) PO ONE (10:49)
[2021-03-20] MEDS ORDERED: SOTROVIMAB 500 MG in SODIUM CHLORIDE 100 ML IVPB ONE (10:50)
[2021-03-20] MEDS ORDERED: IBUPROFEN 400 MG TABLET (FP) PO ONE ×2 (11:15→11:32)
[2021-03-20 13:14] VITALS: BP 101/69; TEMP 98.2
== END 2021-03-20 13:30 | disposition home or self-care (01) ==
LOC: JER 10:46 → JCOVINFU 10:46
DX: U07.1 COVID-19 (principal)
CPT/HCPCS: 99284-25; Q0247

== ENCOUNTER 2022-09-20 19:25 | Observation (INO) | payer OTHER ==
[2022-09-20 19:32] VITALS: BMI 24.2
[2022-09-20] MEDS ORDERED: ACETAMINOPHEN 1000 MG/100 ML BAG IVPB ONE (19:48)
[2022-09-20] MEDS ORDERED: SODIUM CHLORIDE 0.9% 500 ML INFUS.BAG IV ONE (19:48)
[2022-09-20] MEDS ORDERED: ACETAMINOPHEN INJECTION 100 ML IVPB ONE (20:03)
[2022-09-20 20:38] LABS: PH,URINE 6.5 (5.0-8.0); URINE APPEARANCE CLEAR; URINE BILIRUBIN NEGATIVE (NEGATIVE); URINE COLOR YELLOW; URINE GLUCOSE (UA) NEGATIVE (NEGATIVE); URINE KETONE NEGATIVE (NEGATIVE); URINE LEUK ESTERASE NEGATIVE (NEGATIVE); URINE NITRITE NEGATIVE (NEGATIVE); URINE PROTEIN NEGATIVE (NEGATIVE); URINE UROBILINOGEN 0.2 mg/dL (0.2-1.0)
[2022-09-20] MEDS ORDERED: morphine CARPU-JECT 4 MG/1 ML DISP.SYRIN IVPUSH ONE (20:50)
[2022-09-20] MEDS ORDERED: morphine SULFATE 4 MG/ML VIAL ONE (20:53)
[2022-09-20 21:01] LABS: BASO % 0.3 % (0-2.0); EOS % 1.1 % (0-4.5); HEMATOCRIT 39.9 % (32.4-45.2); HEMOGLOBIN 13.2 GM/dL (10.7-15.3); LYMPH % 10.1 % (8-40); MCHC 32.9 g/dl (32.0-36.0); MEAN PLT VOLUME 9.2 fl (7.5-11.1); MONO % 11.6 % (3.8-10.2); NEUT % 76.9 % (42.8-82.8); PLATELET COUNT 312 10^3/uL (134-434); RBC 4.69 M/mm3 (3.60-5.2); RDW 13.3 % (11.6-15.6); WHITE BLOOD COUNT 4.8 K/mm3 (4.0-10.0)
[2022-09-20 21:17] LABS: POTASSIUM 3.9 mmol/L (3.5-5.1)
[2022-09-20 21:20] LABS: ALBUMIN 4.2 g/dl (3.4-5.0); BLOOD UREA NITROGEN 15.8 mg/dL (7-18); CALCIUM 9.8 mg/dL (8.5-10.1)
[2022-09-20 21:23] LABS: CREATININE 1.1 mg/dL (0.55-1.3)
[2022-09-20 21:25] LABS: BILIRUBIN,TOTAL 0.4 mg/dL (0.2-1); TOT PROT 7.2 g/dl (6.4-8.2)
[2022-09-20] MEDS ORDERED: CEFTRIAXONE 1,000 MG in DEXTROSE 5%-WATER - 50 ML IVPB ONE (22:38)
[2022-09-20] MEDS ORDERED: CEFTRIAXONE 1 GM/50 ML BAG ONE (23:04)
[2022-09-21] MEDS ORDERED: MELATONIN 5 MG TABLETS PO PRN (02:30)
[2022-09-21] MEDS ORDERED: morphine SULFATE 4 MG/ML VIAL IVPUSH PRN (02:30)
[2022-09-21] MEDS ORDERED: ALPRAZolam 0.25 MG TABLET PO PRN (02:56)
[2022-09-21] MEDS: ZOLPIDEM TARTRATE 5 MG TABLET PO PRN ×2 (04:22→21:57)
[2022-09-21] MEDS: SERTRALINE HCL 50 MG TABLET (FP) PO SCH (09:35)
[2022-09-21] MEDS: BACLOFEN 10 MG TABLET (FP) PO SCH ×2 (09:35→21:57)
[2022-09-21 10:14] LABS: BASO % 0.4 % (0-2.0); EOS % 2.6 % (0-4.5); HEMATOCRIT 34.3 % (32.4-45.2); HEMOGLOBIN 11.6 GM/dL (10.7-15.3); LYMPH % 13.1 % (8-40); MCH 28.7 pg (25.7-33.7); MEAN CELL VOLUME 84.6 fl (80-96); MEAN PLT VOLUME 9.4 fl (7.5-11.1); MONO % 15.9 % (3.8-10.2); PLATELET COUNT 245 10^3/uL (134-434); RBC 4.05 M/mm3 (3.60-5.2); RDW 13.4 % (11.6-15.6); WHITE BLOOD COUNT 3.1 K/mm3 (4.0-10.0)
[2022-09-21 10:52] LABS: POTASSIUM 3.8 mmol/L (3.5-5.1)
[2022-09-21 11:11] LABS: CALCIUM 9.2 mg/dL (8.5-10.1)
[2022-09-21 11:12] LABS: BLOOD UREA NITROGEN 13.9 mg/dL (7-18)
[2022-09-21 11:15] LABS: CREATININE 0.9 mg/dL (0.55-1.3)
[2022-09-21 12:19] VITALS: RESP 20
[2022-09-21] MEDS ORDERED: ACETAMINOPHEN 1000 MG/100 ML BAG IVPB PRN (13:16)
[2022-09-21] MEDS ORDERED: oxyCODONE HCL 5 MG TABLET PO PRN (15:13)
[2022-09-21] MEDS: CEFTRIAXONE 1 GM in DEXTROSE 5%-WATER - 50 ML IVPB SCH (15:52)
[2022-09-21] MEDS ORDERED: ATORVASTATIN CA 40 MG TABLET (FP) PO SCH (22:00)
[2022-09-21] MEDS ORDERED: GABAPENTIN 300 MG CAPSULE PO SCH (22:00)
[2022-09-22 09:56] VITALS: TEMP 98.3
[2022-09-22] MEDS: SERTRALINE HCL 50 MG TABLET (FP) PO SCH (09:58)
[2022-09-22] MEDS: BACLOFEN 10 MG TABLET (FP) PO SCH (09:58)
[2022-09-22] MEDS: CEFTRIAXONE 1 GM in DEXTROSE 5%-WATER - 50 ML IVPB SCH (09:58)
[2022-09-22] MEDS ORDERED: ONDANSETRON 4 MG/2 ML VIAL IVPUSH PRN (13:14)
[2022-09-22 13:31] VITALS: BP 100/62; PULSE 84
== END 2022-09-22 18:01 | disposition home or self-care (01) ==
LOC: JER 19:25 → JERBED 22:07 → J8W 09-21 01:40
PROVIDERS: ADMIT Internal Medicine; ATTEND Internal Medicine
PROC: 3E0337Z Introduction of Electrolytic and Water Balance Substance into Peripheral Vein, Percutaneous Approach (ICD-10-PCS; principal; 2022-09-20)
PROC: 3E03329 Introduction of Other Anti-infective into Peripheral Vein, Percutaneous Approach (ICD-10-PCS; 2022-09-20)
PROC: 3E033NZ Introduction of Analgesics, Hypnotics, Sedatives into Peripheral Vein, Percutaneous Approach (ICD-10-PCS; 2022-09-20)
PROC: 3E033GC Introduction of Other Therapeutic Substance into Peripheral Vein, Percutaneous Approach (ICD-10-PCS; 2022-09-20)
DX: N39.0 Urinary tract infection, site not specified (principal); N31.2 Flaccid neuropathic bladder, not elsewhere classified; N20.0 Calculus of kidney; R39.15 Urgency of urination; E78.5 Hyperlipidemia, unspecified; G35 Multiple sclerosis; Z87.440 Personal history of urinary (tract) infections; G89.29 Other chronic pain; Z87.891 Personal history of nicotine dependence; F41.9 Anxiety disorder, unspecified
CPT/HCPCS: 96365; 96366; 96367; 96375; 96376; Z9049; 0241U-QW; 36415; 71046-TC-FY; 80048; 80053; 81003; 85025; 87040; 87086; 87651; 93005; 93010; 99285-25; G0378; J0475

== ENCOUNTER 2023-08-10 19:58 | Emergency (ER) | payer BC, OTHER ==
[2023-08-10 20:04] VITALS: BP 136/85; PULSE 68; RESP 18; TEMP 98.6; BMI 24.2
[2023-08-10] MEDS ORDERED: SUCRALFATE 1 GM TABLET (FP) ONE (20:24)
[2023-08-10] MEDS: MAG HYDROX/AL HYDROX/SIMETH 30 ML UNIT-DOSE CUP PO ONE ×2 (20:27→22:40)
[2023-08-10] MEDS: FAMOTIDINE 20 MG/50 ML IVPB 20 MG/50 ML MG IVPB ONE ×2 (20:27→22:40)
[2023-08-10] MEDS: SODIUM CHLORIDE 0.9% 500 ML INFUS.BAG IV ONE (20:27)
[2023-08-10] MEDS: SUCRALFATE 1 GM TABLET (FP) PO ONE (20:27)
[2023-08-10 20:33] LABS: HEMATOCRIT 35.7 % (32.4-45.2); HEMOGLOBIN 12.2 GM/dL (10.7-15.3); MCH 29.3 pg (25.7-33.7); MCHC 34.2 g/dl (32.0-36.0); MEAN CELL VOLUME 85.6 fl (80-96); PLATELET COUNT 256 10^3/uL (134-434); RBC 4.17 M/mm3 (3.60-5.2); RDW 13.6 % (11.6-15.6); WHITE BLOOD COUNT 5.6 K/mm3 (4.0-10.0)
[2023-08-10 20:38] LABS: INR 0.79 (0.83-1.09); PROTHROMBIN TIME (PATIENT) 9.2 SEC (9.7-13.0)
[2023-08-10 20:47] LABS: POTASSIUM 4.1 mmol/L (3.5-5.1)
[2023-08-10 20:49] LABS: CALCIUM 8.7 mg/dL (8.5-10.1)
[2023-08-10 20:50] LABS: ALBUMIN 3.5 g/dl (3.4-5.0); BLOOD UREA NITROGEN 17.4 mg/dL (7-18); MAGNESIUM 1.9 mg/dL (1.8-2.4)
[2023-08-10 20:53] LABS: CREATININE 0.8 mg/dL (0.55-1.3)
[2023-08-10 20:54] LABS: URINE APPEARANCE CLEAR; URINE BILIRUBIN NEGATIVE (NEGATIVE); URINE COLOR YELLOW; URINE GLUCOSE (UA) NEGATIVE (NEGATIVE); URINE KETONE NEGATIVE (NEGATIVE); URINE LEUK ESTERASE NEGATIVE (NEGATIVE); URINE NITRITE NEGATIVE (NEGATIVE); URINE PROTEIN NEGATIVE (NEGATIVE)
[2023-08-10 20:54] LABS: BILIRUBIN,TOTAL 0.3 mg/dL (0.2-1); TOT PROT 6.3 g/dl (6.4-8.2)
[2023-08-10] MEDS ORDERED: morphine SULFATE 4 MG/ML VIAL ONE (21:17)
[2023-08-10] MEDS: morphine CARPU-JECT 4 MG/1 ML DISP.SYRIN IVPUSH ONE (21:21)
[2023-08-10] MEDS: FOLIC ACID INJECTION - 1 MG, THIAMINE HCL 100 MG, MULTIVIT INJECTION ADULT 10 ML in SOD... IVPB ONE (21:21)
[2023-08-10] MEDS ORDERED: FAMOTIDINE 20 MG/50 ML IVPB 20 MG/50 ML MG IVPB ONE (22:37)
[2023-08-10] MEDS ORDERED: MAG HYDROX/AL HYDROX/SIMETH 30 ML UNIT-DOSE CUP ONE (22:37)
[2023-08-10] MEDS ORDERED: SIMETHICONE 80 MG TAB.CHEW (FP) ONE (22:49)
[2023-08-10] MEDS: SIMETHICONE 80 MG TAB.CHEW (FP) PO ONE (22:52)
== END 2023-08-10 23:22 | disposition home or self-care (01) ==
LOC: JER 19:58
PROC: 3E033GC Introduction of Other Therapeutic Substance into Peripheral Vein, Percutaneous Approach (ICD-10-PCS; principal; 2023-08-10)
PROC: 3E033GC Introduction of Other Therapeutic Substance into Peripheral Vein, Percutaneous Approach (ICD-10-PCS; 2023-08-10)
PROC: 3E033GC Introduction of Other Therapeutic Substance into Peripheral Vein, Percutaneous Approach (ICD-10-PCS; 2023-08-10)
PROC: 3E033GC Introduction of Other Therapeutic Substance into Peripheral Vein, Percutaneous Approach (ICD-10-PCS; 2023-08-10)
PROC: 3E033GC Introduction of Other Therapeutic Substance into Peripheral Vein, Percutaneous Approach (ICD-10-PCS; 2023-08-10)
PROC: 3E033GC Introduction of Other Therapeutic Substance into Peripheral Vein, Percutaneous Approach (ICD-10-PCS; 2023-08-10)
PROC: 3E033GC Introduction of Other Therapeutic Substance into Peripheral Vein, Percutaneous Approach (ICD-10-PCS; 2023-08-10)
PROC: 3E033GC Introduction of Other Therapeutic Substance into Peripheral Vein, Percutaneous Approach (ICD-10-PCS; 2023-08-10)
PROC: 3E033GC Introduction of Other Therapeutic Substance into Peripheral Vein, Percutaneous Approach (ICD-10-PCS; 2023-08-10)
PROC: 3E033GC Introduction of Other Therapeutic Substance into Peripheral Vein, Percutaneous Approach (ICD-10-PCS; 2023-08-10)
DX: R10.13 Epigastric pain (principal); K92.1 Melena
CPT/HCPCS: 36415; 74177-TC; 80053; 81003; 82272; 83690; 83735; 84443; 85027; 85610; 85730; 86850; 86900; 86901; 87086; 93005; 93010; 99285-25; Q9967